=== PATIENT | male | born 1955 | race Caucasian/White ===

== ENCOUNTER 2018-03-05 20:45 | Emergency (ER) | payer SELFPAY ==
--- OUTSIDE RECORDS SUMMARY | 2018-03-05 20:48 | XMS REPORT | Clinical Summary ---
:1955 Author Organization [facility] Address [address] [place] [address] Care Team Providers Name Role Phone Pavel Herr MD Primary Care Provider Allergies Active Allergy Reactions Severity Noted Date Comments Dicyclomine Other (See Comments) 10/27/2017 PATIENT STATES THIS MED CAUSES A DROP IN HIS BLOOD PRESSURE Current Medications Prescription Sig. Disp. Refills Start End Date Status Date multivitamin with Take 1 Active minerals tablet tablet by mouth daily. folic acid (FOLVITE) 1 Take 1 mg by Active MG tablet mouth daily. thiamine 100 MG tablet Take 100 mg Active by mouth daily. zinc sulfate (ZINCATE) Take 220 mg Active 220 (50) mg capsule by mouth daily. ferrous sulfate 325 (65 Take 325 mg Active FE) MG tablet by mouth daily with breakfast. lactulose 20 gram/30 mL Take 10 g by Active solution mouth 3 (three) times a day. pantoprazole (PROTONIX) Take 40 mg Active 40 MG EC tablet by mouth every morning. vitamin B complex (B-100 Take 1 Active COMPLEX ORAL) capsule by mouth every morning. traMADol (ULTRAM) 50 mg Take 50 mg Active tablet by mouth every 8 (eight) hours as needed for moderate pain. citalopram (CeleXA) 20 Take 1 30 tablet 2 Active MG tabletIndications: tablet (20 8 Anxiety, Depression, mg total) by controlled mouth daily. furosemide (LASIX) 40 mg Take 1 60 tablet 0 03/06/20 Active tablet tablet (40 8 18 mg total) by mouth 2 (two) times a day for 30 days. spironolactone Take 1 60 tablet 0 03/06/20 Active (ALDACTONE) 25 MG tablet tablet (25 8 18 mg total) by mouth 2 (two) times a day for 30 days. mirtazapine (REMERON) 30 Take 1 30 tablet 0 Active MG tabletIndications: tablet (30 8 Psychophysiological mg total) by insomnia mouth nightly. promethazine (PHENERGAN) Take 1 30 tablet 0 Active 12.5 MG tablet (12.5 8 tabletIndications: mg total) by Nausea mouth every 8 (eight) hours as needed for nausea or vomiting. milk thistle 175 mg Take 175 mg Active tablet by mouth daily. amoxicillin-pot Take 1 28 tablet 0 03/18/20 Active clavulanate (AUGMENTIN) tablet by 8 18 875-125 mg per tablet mouth 2 (two) times a day for 14 days. pantoprazole (PROTONIX) Take 40 mg 10/30/19 Discontinued 40 MG EC tablet by mouth 18 daily. citalopram (CeleXA) 40 Take 40 mg 12/15/19 Discontinued MG tablet by mouth 18 daily. pantoprazole (PROTONIX) Take 1 60 tablet 0 11/29/19 40 MG EC tablet tablet (40 8 18 mg total) by mouth 2 (two) times a day with meals for 30 days. spironolactone Take 1 30 tablet 0 11/30/19 (ALDACTONE) 25 MG tablet tablet (25 8 18 mg total) by mouth daily for 30 days. furosemide (LASIX) 20 mg Take 1 60 tablet 0 11/29/19 tablet tablet (20 8 18 mg total) by mouth 2 (two) times a day for 30 days. ciprofloxacin (CIPRO) Take 1 14 tablet 0 11/06/19 500 MG tablet tablet (500 8 18 mg total) by mouth 2 (two) times a day for 7 days. furosemide (LASIX) 20 mg Take 20 mg 12/15/19 Discontinued tablet by mouth 2 18 (two) times a day. spironolactone Take 1 30 tablet 0 01/15/20 (ALDACTONE) 100 MG tablet (100 8 18 tablet mg total) by mouth daily for 30 days. citalopram (CeleXA) 40 Take 0.5 15 tablet 0 01/08/20 Discontinued MG tablet tablets (20 8 18 mg total) by mouth daily for 30 days. furosemide (LASIX) 40 mg Take 1 30 tablet 0 01/14/20 tablet tablet (40 8 18 mg total) by mouth daily for 30 days. ciprofloxacin (CIPRO) Take 1 28 tablet 0 12/29/19 500 MG tablet tablet (500 8 18 mg total) by mouth 2 (two) times a day for 14 days. traMADol (ULTRAM) 50 mg Take 1 30 tablet 0 12/25/19 tablet tablet (50 8 18 mg total) by mouth every 6 (six) hours as needed for moderate pain for up to 10 days. ondansetron (ZOFRAN) 4 Take 4 mg by 02/26/20 Discontinued MG tablet mouth every 18 8 (eight) hours as needed for nausea or vomiting. hydrOXYzine (VISTARIL) Take 1 po 30 capsule 2 02/26/20 Discontinued 50 MG qhs prn 8 18 capsuleIndications: insomnia Psychophysiological insomnia mirtazapine (REMERON) 15 Take 1 30 tablet 0 02/16/20 Discontinued MG tablet tablet (15 8 18 mg total) by mouth nightly. riFAXimin (XIFAXAN) 550 Take 1 28 tablet 0 02/19/20 mg tablet tablet (550 8 18 mg total) by mouth 2 (two) times a day for 14 days. Active Problems Problem Noted Date E. coli sepsis (HCC) 02/25/2018 Cirrhosis of liver with ascites (HCC) 02/24/2018 Psychophysiological insomnia 02/15/2018 Nausea 02/15/2018 Spontaneous bacterial peritonitis (HCC) 02/01/2018 Ascites due to alcoholic cirrhosis (HCC) 12/13/2017 Ascites 10/28/2017 Resolved Problems Problem Noted Date Resolved Date Intractable abdominal pain 10/27/2017 02/15/2018 Encounters Date Type Specialty Care Team Description 02/24/2018 - [facility], Cirrhosis of liver with ascites, unspecified hepatic cirrhosis type (HCC) (Primary Dx); 03/04/2018 Encounter Medicine Abdominal pain, unspecified abdominal location; Lit Maynard SIRS (systemic inflammatory response syndrome) (HCC) MD Benedict Hernandez Philip Tomy, MD Kohlnhofer, Matthew, MD 02/15/2018 Office Visit Internal Pavel Herr Psychophysiological insomnia ( Primary Dx); Medicine MD Porter BMI 25.0-25.9,adult; Nausea 02/01/2018 - [facility] Spontaneous bacterial peritonitis (HCC) (Primary Dx); 02/04/2018 Encounter Medicine MD Prakash Abdominal wall cellulitis; Akash Zuñiga, Other ascites 01/21/2018 Telephone Family Medicine Afia Dewey 01/07/2018 Office Visit Internal Carmenza Zhao Anxiety (Primary Dx); Medicine MD Porter BMI 22.0-22.9, adult; Psychophysiological insomnia; Depression, controlled; Other chronic pain 12/12/2017 - Emergency General Surgery Wingkun, Ascites due to alcoholic cirrhosis (Primary Dx); 12/14/2017 Ever Alcoholic cirrhosis of liver with ascites MD Nash Peacock, MD Mahi Mckeon Remy, DO 10/27/2017 - Hospital [facility] Intractable abdominal pain (Primary Dx); 10/29/2017 Encounter Medicine MD Cedric Other ascites; Nash, Ascites due to alcoholic cirrhosis MD Linda after 03/04/2017 Immunizations Name Dates Previously Given Next Due FLUCELVAX QUAD PF (0.5mL syringe) 02/04/2018 Family History Medical History Relation Name Comments Aneurysm Father Multiple sclerosis Mother Relation Name Status Comments Father Mother Social History Tobacco Use Types Packs/Day Years Used Date Current Every Day Smoker Cigarettes 0.5 25 Started: 02/24/2018 Smokeless Tobacco: Former User Chew Quit: 02/05/1954 Alcohol Use Drinks/Week oz/Week Comments No Quit drinking 11/04/2014 Sex Assigned at Date Recorded Not on file Last Filed Vital Signs Vital Sign Reading Time Taken Blood Pressure 101/56 03/04/2018 11:33 AM CDT Pulse 90 03/04/2018 11:33 AM CDT Temperature 37 C (98.6 F) 03/04/2018 11:33 AM CDT Respiratory Rate 20 03/04/2018 11:33 AM CDT Oxygen Saturation 95% 03/04/2018 11:33 AM CDT Inhaled Oxygen Concentration - - Weight 66 kg (145 lb 8 oz) 03/04/2018 3:12 AM CDT Height 167.6 cm (5' 6") 02/24/2018 5:36 PM CDT Body Mass Index 23.48 03/04/2018 3:12 AM CDT Plan of Treatment Date Type Specialty Care Team Description 03/15/2018 Office Visit Internal Medicine Pavel Herr MD [address] [place] [address] [place] [id number] [phone] Health Maintenance Due Date Last Done Comments COLON CANCER SCREENING 2007 SHINGRIX VACCINE (#1) 2007 ZOSTER VACCINE 2017 INFLUENZA VACCINE Completed 02/04/2018, 12/31/2017 Procedures Procedure Name Priority Date/Time Associated Comments Diagnosis ESTIMATED GFR Routine 03/04/2018 5:42 Results for this AM CDT procedure are in the results section. HC COMPLETE BLD COUNT Routine 03/04/2018 5:42 Results for this W/AUTO DIFF AM CDT procedure are in the results section. BASIC METABOLIC PANEL Routine 03/04/2018 5:42 Results for this AM CDT procedure are in the results section. ESTIMATED GFR Routine 03/03/2018 5:45 Results for this AM CDT procedure are in the results section. BASIC METABOLIC PANEL Routine 03/03/2018 5:45 Results for this AM CDT procedure are in the results section. MAGNESIUM LEVEL Routine 03/03/2018 5:45 Results for this AM CDT procedure are in the results section. POTASSIUM LEVEL Timed 03/02/2018 5:11 Results for this PM CDT procedure are in the results section. ESTIMATED GFR Routine 03/02/2018 5:13 Results for this AM CDT procedure are in the results section. HC COMPLETE BLD COUNT Routine 03/02/2018 5:13 Results for this W/AUTO DIFF AM CDT procedure are in the results section. COMPREHENSIVE METABOLIC Routine 03/02/2018 5:13 Results for this PANEL AM CDT procedure are in the results section. TRANSFUSE FRESH FROZEN Routine 03/01/2018 7:58 PLASMA PM CDT CELL COUNT AND Routine 03/01/2018 7:28 Results for this DIFFERENTIAL, BODY PM CDT procedure are in FLUID the results section. GRAM STAIN Routine 03/01/2018 7:28 Results for this PM CDT procedure are in the results section. ANAEROBIC CULTURE Routine 03/01/2018 7:28 PM CDT AEROBIC CULTURE Routine 03/01/2018 7:28 Results for this PM CDT procedure are in the results section. US ABDOMINAL Routine 03/01/2018 5:24 Results for this PARACENTESIS IMAGING PM CDT procedure are in the results section. PREPARE FRESH FROZEN Timed 03/01/2018 3:19 Results for this PLASMA AM CDT procedure are in the results section. HEPATIC FUNCTION PANEL Routine 03/01/2018 3:19 Results for this AM CDT procedure are in the results section. TYPE AND SCREEN Routine 03/01/2018 3:19 Results for this AM CDT procedure are in the results section. ESTIMATED GFR Routine 03/01/2018 3:00 Results for this AM CDT procedure are in the results section. PROTHROMBIN TIME WITH Routine 03/01/2018 3:00 Results for this INR AM CDT procedure are in the results section. HC COMPLETE BLD COUNT Routine 03/01/2018 3:00 Results for this W/AUTO DIFF AM CDT procedure are in the results section. BASIC METABOLIC PANEL Routine 03/01/2018 3:00 Results for this AM CDT procedure are in the results section. PROTHROMBIN TIME WITH Routine 02/28/2018 2:35 Results for this INR PM CDT procedure are in the results section. ESTIMATED GFR Routine 02/28/2018 4:43 Results for this AM CDT procedure are in the results section. BASIC METABOLIC PANEL Routine 02/28/2018 4:43 Results for this AM CDT procedure are in the results section. HC COMPLETE BLD COUNT Routine 02/28/2018 4:43 Results for this W/AUTO DIFF AM CDT procedure are in the results section. MAGNESIUM LEVEL Timed 02/27/2018 12:57 Results for this PM CDT procedure are in the results section. POTASSIUM LEVEL Timed 02/27/2018 12:57 Results for this PM CDT procedure are in the results section. ESTIMATED GFR Routine 02/27/2018 4:10 Results for this AM CDT procedure are in the results section. BASIC METABOLIC PANEL Routine 02/27/2018 4:10 Results for this AM CDT procedure are in the results section. HC COMPLETE BLD COUNT Routine 02/27/2018 4:10 Results for this W/AUTO DIFF AM CDT procedure are in the results section. ESTIMATED GFR Routine 02/26/2018 5:30 Results for this AM CDT procedure are in the results section. HC COMPLETE BLD COUNT Routine 02/26/2018 5:30 Results for this W/AUTO DIFF AM CDT procedure are in the results section. COMPREHENSIVE METABOLIC Routine 02/26/2018 5:30 Results for this PANEL AM CDT procedure are in the results section. US ABDOMINAL Routine 02/25/2018 3:45 Results for this PARACENTESIS IMAGING PM CDT procedure are in the results section. CYTOLOGY Routine 02/25/2018 3:00 Results for this (NON-GYNECOLOGICAL) PM CDT procedure are in REQUEST the results section. ALBUMIN, MISC FLUID Routine 02/25/2018 3:00 Results for this PM CDT procedure are in the results section. CELL COUNT AND Routine 02/25/2018 3:00 Results for this DIFFERENTIAL, BODY PM CDT procedure are in FLUID the results section. GRAM STAIN Routine 02/25/2018 3:00 Results for this PM CDT procedure are in the results section. ANAEROBIC CULTURE Routine 02/25/2018 3:00 Results for this PM CDT procedure are in the results section. AEROBIC CULTURE Routine 02/25/2018 3:00 Results for this PM CDT procedure are in the results section. ESTIMATED GFR Routine 02/25/2018 4:48 Results for this AM CDT procedure are in the results section. COMPREHENSIVE METABOLIC Routine 02/25/2018 4:48 Results for this PANEL AM CDT procedure are in the results section. HC COMPLETE BLD COUNT Routine 02/25/2018 4:48 Results for this W/AUTO DIFF AM CDT procedure are in the results section. LACTIC ACID LEVEL, Timed 02/25/2018 4:48 Results for this SEPSIS - NOW AND REPEAT AM CDT procedure are in 2X EVERY 3 HOURS the results section. LACTIC ACID LEVEL, Timed 02/25/2018 12:45 Results for this SEPSIS - NOW AND REPEAT AM CDT procedure are in 2X EVERY [address] ABDOMEN PELVIS W STAT 02/24/2018 8:02 Results for this CONTRAST PM CDT procedure are in the results section. URINALYSIS SCREEN AND STAT 02/24/2018 7:49 Results for this MICROSCOPY, WITH REFLEX PM CDT procedure are in TO CULTURE the results section. URINE CULTURE STAT 02/24/2018 7:49 Results for this PM CDT procedure are in the results section. LACTIC ACID LEVEL, Timed 02/24/2018 7:41 Results for this SEPSIS - NOW AND REPEAT PM CDT procedure are in 2X EVERY 3 HOURS the results section. BLOOD CULTURE, AEROBIC Routine 02/24/2018 7:35 Results for this & ANAEROBIC PM CDT procedure are in the results section. INFLUENZA ANTIGEN Routine 02/24/2018 7:35 Results for this PM CDT procedure are in the results section. BLOOD CULTURE, AEROBIC Routine 02/24/2018 7:20 Results for this & ANAEROBIC PM CDT procedure are in the results section. ECG ED PRELIMINARY Routine 02/24/2018 6:03 Results for this INTERPRETATION PM CDT procedure are in the results section. LIPASE LEVEL STAT 02/24/2018 6:01 Results for this PM CDT procedure are in the results section. ESTIMATED GFR STAT 02/24/2018 6:01 Results for this PM CDT procedure are in the results section. PARTIAL THROMBOPLASTIN STAT 02/24/2018 6:01 Results for this TIME (PTT) PM CDT procedure are in the results section. PROTHROMBIN TIME WITH STAT 02/24/2018 6:01 Results for this INR PM CDT procedure are in the results section. HC COMPLETE BLD COUNT STAT 02/24/2018 6:01 Results for this W/AUTO DIFF PM CDT procedure are in the results section. COMPREHENSIVE METABOLIC STAT 02/24/2018 6:01 Results for this PANEL PM CDT procedure are in the results section. ECG 12-LEAD Routine 02/24/2018 5:44 Results for this PM CDT procedure are in the results section. ESTIMATED GFR Routine 02/04/2018 4:48 Results for this AM CDT procedure are in the results section. AMMONIA LEVEL Routine 02/04/2018 4:48 Results for this AM CDT procedure are in the results section. HC COMPLETE BLD COUNT Routine 02/04/2018 4:48 Results for this W/AUTO DIFF AM CDT procedure are in the results section. COMPREHENSIVE METABOLIC Routine 02/04/2018 4:48 Results for this PANEL AM CDT procedure are in the results section. POC GLUCOSE Routine 02/03/2018 4:32 Results for this PM CDT procedure are in the results section. POC GLUCOSE Routine 02/03/2018 12:24 Results for this PM CDT procedure are in the results section. US ABDOMINAL Routine 02/03/2018 12:11 Results for this PARACENTESIS IMAGING PM CDT procedure are in the results section. POC GLUCOSE Routine 02/03/2018 5:32 Results for this AM CDT procedure are in the results section. ESTIMATED GFR Routine 02/03/2018 4:20 Results for this AM CDT procedure are in the results section. THYROID STIMULATING Routine 02/03/2018 4:20 Results for this HORMONE AM CDT procedure are in the results section. HEMOGLOBIN A1C Routine 02/03/2018 4:20 Results for this AM CDT procedure are in the results section. HC COMPLETE BLD COUNT Routine 02/03/2018 4:20 Results for this W/AUTO DIFF AM CDT procedure are in the results section. COMPREHENSIVE METABOLIC Routine 02/03/2018 4:20 Results for this PANEL AM CDT procedure are in the results section. POC GLUCOSE Routine 02/02/2018 5:58 Results for this PM CDT procedure are in the results section. AMMONIA LEVEL Routine 02/02/2018 9:19 Results for this AM CDT procedure are in the results section. LACTIC ACID LEVEL, Timed 02/02/2018 12:50 Results for this SEPSIS - NOW AND REPEAT AM CDT procedure are in 2X EVERY 3 HOURS the results section. LACTIC ACID LEVEL, Timed 02/01/2018 9:20 Results for this SEPSIS - NOW AND REPEAT PM CDT procedure are in 2X EVERY 3 HOURS the results section. US ABDOMINAL STAT 02/01/2018 7:16 Results for this PARACENTESIS IMAGING PM CDT procedure are in the results section. CELL COUNT AND Routine 02/01/2018 6:55 Results for this DIFFERENTIAL, BODY PM CDT procedure are in FLUID the results section. PROTEIN, MISC FLUID Routine 02/01/2018 6:55 Results for this PM CDT procedure are in the results section. LDH, MISC FLUID Routine 02/01/2018 6:55 Results for this PM CDT procedure are in the results section. GLUCOSE LEVEL, MISC Routine 02/01/2018 6:55 Results for this FLUID PM CDT procedure are in the results section. GRAM STAIN Routine 02/01/2018 6:55 Results for this PM CDT procedure are in the results section. ANAEROBIC CULTURE Routine 02/01/2018 6:55 Results for this PM CDT procedure are in the results section. AEROBIC CULTURE Routine 02/01/2018 6:55 Results for this PM CDT procedure are in the results section. BLOOD CULTURE, AEROBIC Routine 02/01/2018 6:08 Results for this & ANAEROBIC PM CDT procedure are in the results section. LACTIC ACID LEVEL, Timed 02/01/2018 5:49 Results for this SEPSIS - NOW AND REPEAT PM CDT procedure are in 2X EVERY 3 HOURS the results section. AMMONIA LEVEL STAT 02/01/2018 5:49 Results for this PM CDT procedure are in the results section. PROTHROMBIN TIME WITH STAT 02/01/2018 5:49 Results for this INR PM CDT procedure are in the results section. BLOOD CULTURE, AEROBIC Routine 02/01/2018 5:49 Results for this & ANAEROBIC PM CDT procedure are in the results section. CT ABDOMEN PELVIS WO STAT 02/01/2018 5:30 Results for this CONTRAST PM CDT procedure are in the results section. ECG ED PRELIMINARY Routine 02/01/2018 4:36 Results for this INTERPRETATION PM CDT procedure are in the results section. URINALYSIS SCREEN AND STAT 02/01/2018 4:34 Results for this MICROSCOPY, WITH REFLEX PM CDT procedure are in TO CULTURE the results section. URINE CULTURE STAT 02/01/2018 4:34 Results for this PM CDT procedure are in the results section. ESTIMATED GFR STAT 02/01/2018 4:17 Results for this PM CDT procedure are in the results section. CREATINE KINASE, TOTAL STAT 02/01/2018 4:17 Results for this (CPK) PM CDT procedure are in the results section. TROPONIN STAT 02/01/2018 4:17 Results for this PM CDT procedure are in the results section. LIPASE LEVEL STAT 02/01/2018 4:17 Results for this PM CDT procedure are in the results section. AMYLASE LEVEL STAT 02/01/2018 4:17 Results for this PM CDT procedure are in the results section. COMPREHENSIVE METABOLIC STAT 02/01/2018 4:17 Results for this PANEL PM CDT procedure are in the results section. HC COMPLETE BLD COUNT STAT 02/01/2018 4:17 Results for this W/AUTO DIFF PM CDT procedure are in the results section. ECG 12-LEAD Routine 02/01/2018 3:46 Results for this PM CDT procedure are in the results section. TRANSFUSE FRESH FROZEN Routine 01/05/2018 5:56 PLASMA PM CDT ZZESTIMATED GFR STAT 12/14/2017 8:55 Results for this AM CDT procedure are in the results section. BASIC METABOLIC PANEL STAT 12/14/2017 8:55 Results for this AM CDT procedure are in the results section. HC COMPLETE BLD COUNT STAT 12/14/2017 8:55 Results for this W/AUTO DIFF AM CDT procedure are in the results section. US ABDOMINAL Routine 12/13/2017 2:52 Results for this PARACENTESIS IMAGING PM CDT procedure are in the results section. CYTOLOGY Routine 12/13/2017 2:15 Results for this (NON-GYNECOLOGICAL) PM CDT procedure are in REQUEST the results section. BODY FLUID CONSULT Routine 12/13/2017 2:15 Results for this PM CDT procedure are in the results section. ALBUMIN, MISC FLUID Routine 12/13/2017 2:15 Results for this PM CDT procedure are in the results section. CELL COUNT AND Routine 12/13/2017 2:15 Results for this DIFFERENTIAL, BODY PM CDT procedure are in FLUID the results section. ANAEROBIC CULTURE Routine 12/13/2017 2:15 Results for this PM CDT procedure are in the results section. GRAM STAIN Routine 12/13/2017 2:15 Results for this PM CDT procedure are in the results section. AEROBIC CULTURE Routine 12/13/2017 2:15 Results for this PM CDT procedure are in the results section. ZZESTIMATED GFR STAT 12/12/2017 11:48 Results for this PM CDT procedure are in the results section. PARTIAL THROMBOPLASTIN STAT 12/12/2017 11:48 Results for this TIME (PTT) PM CDT procedure are in the results section. PROTHROMBIN TIME WITH STAT 12/12/2017 11:48 Results for this INR PM CDT procedure are in the results section. HEPATIC FUNCTION PANEL STAT 12/12/2017 11:48 Results for this PM CDT procedure are in the results section. LIPASE LEVEL STAT 12/12/2017 11:48 Results for this PM CDT procedure are in the results section. BASIC METABOLIC PANEL STAT 12/12/2017 11:48 Results for this PM CDT procedure are in the results section. HC COMPLETE BLD COUNT STAT 12/12/2017 11:48 Results for this W/AUTO DIFF PM CDT procedure are in the results section. URINALYSIS SCREEN AND STAT 12/12/2017 11:17 Results for this MICROSCOPY, WITH REFLEX PM CDT procedure are in TO CULTURE the results section. URINE CULTURE STAT 12/12/2017 11:17 Results for this PM CDT procedure are in the results section. ECG 12-LEAD STAT 12/12/2017 11:05 Results for this PM CDT procedure are in the results section. ECG ED PRELIMINARY Routine 12/12/2017 10:46 Results for this INTERPRETATION PM CDT procedure are in the results section. US ABDOMINAL Routine 10/28/2017 4:04 Results for this PARACENTESIS IMAGING PM CDT procedure are in the results section. GRAM STAIN Routine 10/28/2017 3:39 Results for this PM CDT procedure are in the results section. AEROBIC CULTURE Routine 10/28/2017 3:39 Results for this PM CDT procedure are in the results section. ANAEROBIC CULTURE Routine 10/28/2017 3:39 Results for this PM CDT procedure are in the results section. CYTOLOGY Routine 10/28/2017 3:30 Results for this (NON-GYNECOLOGICAL) PM CDT procedure are in REQUEST the results section. BODY FLUID CONSULT Routine 10/28/2017 3:30 Results for this PM CDT procedure are in the results section. CELL COUNT AND Routine 10/28/2017 3:30 Results for this DIFFERENTIAL, BODY PM CDT procedure are in FLUID the results section. PREPARE FRESH FROZEN Timed 10/28/2017 11:49 Results for this PLASMA AM CDT procedure are in the results section. TYPE AND SCREEN Timed 10/28/2017 11:49 Results for this AM CDT procedure are in the results section. CT ABDOMEN PELVIS W STAT 10/27/2017 12:50 Results for this CONTRAST PM CDT procedure are in the results section. ZZESTIMATED GFR Routine 10/27/2017 11:05 Results for this AM CDT procedure are in the results section. HEPATIC FUNCTION PANEL Routine 10/27/2017 11:05 Results for this AM CDT procedure are in the results section. MAGNESIUM LEVEL Routine 10/27/2017 11:05 Results for this AM CDT procedure are in the results section. LIPASE LEVEL Routine 10/27/2017 11:05 Results for this AM CDT procedure are in the results section. BASIC METABOLIC PANEL Routine 10/27/2017 11:05 Results for this AM CDT procedure are in the results section. URINALYSIS SCREEN AND STAT 10/27/2017 10:38 Results for this MICROSCOPY, WITH REFLEX AM CDT procedure are in TO CULTURE the results section. URINE CULTURE STAT 10/27/2017 10:38 Results for this AM CDT procedure are in the results section. PARTIAL THROMBOPLASTIN STAT 10/27/2017 10:30 Results for this TIME (PTT) AM CDT procedure are in the results section. PROTHROMBIN TIME WITH STAT 10/27/2017 10:30 Results for this INR AM CDT procedure are in the results section. HC COMPLETE BLD COUNT STAT 10/27/2017 10:30 Results for this W/AUTO DIFF AM CDT procedure are in the results section. after 03/04/2017 Results Estimated GFR (03/04/2018 5:42 AM)Only the most recent of12 resultswithin the time period is included. Estimated GFR >=90 mL/min/1.73 m2 [facility] DEPARTMENT OF Comment: PATHOLOGY AND GENOMIC CatergoryUnitsInterpretation MEDICINE G1 >=90 Normal or high G2 60-89Mildly decreased [id number] to moderately decreased [id number] to severely decreased G4 15-29Severely decreased G5 <15Kidney failure The eGFR was calculated using the Chronic Kidney Disease Epidemiology Collaboration (CKD-EPI) equation. Interpretation is based on recommendations of the National Kidney Foundation-Kidney Disease Outcomes Quality Initiative (NKF-KDOQI) published in 2014. Specimen Plasma specimen Performing Organization Address City/State/Zipcode Phone Number [facility] DEPARTMENT OF PATHOLOGY AND [address] [place] [address] [facility] CBC with platelet and differential (03/04/2018 5:42 AM)Only the most recent of14 resultswithin the time period is included. WBC 9.07 4.50 - 11.00 k/uL [facility] DEPARTMENT OF PATHOLOGY AND GENOMIC MEDICINE RBC 2.89 (L) 4.40 - 6.00 m/uL [facility] DEPARTMENT OF PATHOLOGY AND GENOMIC MEDICINE HGB 10.0 (L) 14.0 - 18.0 g/dL [facility] DEPARTMENT OF PATHOLOGY AND GENOMIC MEDICINE HCT 28.5 (L) 41.0 - 51.0 % [facility] DEPARTMENT OF PATHOLOGY AND GENOMIC MEDICINE MCV 98.6 82.0 - 100.0 fL [facility] DEPARTMENT OF PATHOLOGY AND GENOMIC MEDICINE MCH 34.6 (H) 27.0 - 34.0 pg [facility] DEPARTMENT OF PATHOLOGY AND GENOMIC MEDICINE MCHC 35.1 31.0 - 37.0 g/dL [facility] DEPARTMENT OF PATHOLOGY AND GENOMIC MEDICINE RDW - SD 52.8 37.0 - 55.0 fL [facility] DEPARTMENT OF PATHOLOGY AND GENOMIC MEDICINE MPV 10.4 8.8 - 13.2 fL [facility] DEPARTMENT OF PATHOLOGY AND GENOMIC MEDICINE Platelet count 59 (L) 150 - 400 k/uL [facility] DEPARTMENT OF PATHOLOGY AND GENOMIC MEDICINE Nucleated RBC 0.00 /100 WBC [facility] DEPARTMENT OF PATHOLOGY AND GENOMIC MEDICINE Neutrophils 74.9 (H) 39.0 - 69.0 % [facility] DEPARTMENT OF PATHOLOGY AND GENOMIC MEDICINE Lymphocytes 11.9 (L) 25.0 - 45.0 % [facility] DEPARTMENT OF PATHOLOGY AND GENOMIC MEDICINE Monocytes 9.8 0.0 - 10.0 % [facility] DEPARTMENT OF PATHOLOGY AND GENOMIC MEDICINE Eosinophils 1.9 0.0 - 5.0 % [facility] DEPARTMENT OF PATHOLOGY AND GENOMIC MEDICINE Basophils 0.8 0.0 - 1.0 % [facility] DEPARTMENT OF PATHOLOGY AND GENOMIC MEDICINE Specimen Blood Performing Organization Address [facility] Phone Number [facility] AND [address] [place] [address] [place] [address] [employer] [facility] Basic metabolic panel (03/04/2018 5:42 AM)Only the most recent of8 resultswithin the time period is included. Sodium 135 135 - 148 mEq/L [facility] DEPARTMENT OF PATHOLOGY AND GENOMIC MEDICINE Potassium 3.3 (L) 3.5 - 5.0 mEq/L [facility] DEPARTMENT OF PATHOLOGY AND GENOMIC MEDICINE Chloride 97 (L) 98 - 112 mEq/L [facility] DEPARTMENT OF PATHOLOGY AND GENOMIC MEDICINE CO2 27 24 - 31 mEq/L [facility] DEPARTMENT OF PATHOLOGY AND GENOMIC MEDICINE Anion gap 11@ANIO 7 - 15 mEq/L [facility] DEPARTMENT OF PATHOLOGY AND GENOMIC MEDICINE BUN 8 8 - 23 mg/dL [facility] DEPARTMENT OF PATHOLOGY AND GENOMIC MEDICINE Creatinine 0.90 0.70 - 1.20 mg/dL [facility] DEPARTMENT OF PATHOLOGY AND GENOMIC MEDICINE Glucose 106 (H) 65 - 99 mg/dL [facility] DEPARTMENT OF PATHOLOGY AND GENOMIC MEDICINE Calcium 8.2 (L) 8.8 - 10.2 mg/dL [facility] DEPARTMENT OF PATHOLOGY AND GENOMIC MEDICINE Specimen Plasma specimen Performing Organization Address City/[facility] Phone Number [facility] OF PATHOLOGY AND [address] [place] [address] Magnesium level (03/03/2018 5:45 AM)Only the most recent of3 resultswithin the time period is included. Magnesium 1.7 1.6 - 2.4 mg/dL [facility] DEPARTMENT OF PATHOLOGY AND GENOMIC MEDICINE Specimen Plasma specimen Performing Organization Address [facility] Phone Number [facility] DEPARTMENT OF PATHOLOGY AND [address] [place] [address] Potassium level (03/02/2018 5:11 PM)Only the most recent of2 resultswithin the time period is included. Potassium 3.3 (L) 3.5 - 5.0 mEq/L [facility] DEPARTMENT OF PATHOLOGY AND GENOMIC [facility] Specimen Plasma specimen Performing Organization Address [facility] Phone Number [facility] DEPARTMENT OF PATHOLOGY AND [id number] [place] [address] Comprehensive metabolic panel (03/02/2018 5:13 AM)Only the most recent of7 resultswithin the time period is included. Sodium 136 135 - 148 mEq/L [facility] DEPARTMENT OF PATHOLOGY AND GENOMIC [facility] Potassium 2.7 (LL) 3.5 - 5.0 mEq/L [facility] DEPARTMENT OF Comment: PATHOLOGY AND GENOMIC Results called to and read back by MEGA BATISTA(4TH FLOOR)03/02/2018 MEDICINE 06:02 [facility] Chloride 98 98 - 112 mEq/L [facility] DEPARTMENT OF PATHOLOGY AND GENOMIC MEDICINE CO2 28 24 - 31 mEq/L [facility] DEPARTMENT OF PATHOLOGY AND GENOMIC MEDICINE Anion gap 10@ANIO 7 - 15 mEq/L [facility] DEPARTMENT OF PATHOLOGY AND GENOMIC MEDICINE BUN 5 (L) 8 - 23 mg/dL [facility] DEPARTMENT OF PATHOLOGY AND GENOMIC MEDICINE Creatinine 0.80 0.70 - 1.20 mg/dL [facility] DEPARTMENT OF PATHOLOGY AND GENOMIC MEDICINE Glucose 90 65 - 99 mg/dL [facility] DEPARTMENT OF PATHOLOGY AND GENOMIC MEDICINE Calcium 8.0 (L) 8.8 - 10.2 mg/dL [facility] DEPARTMENT OF PATHOLOGY AND GENOMIC MEDICINE Protein 5.8 (L) 6.3 - 8.3 g/dL [facility] DEPARTMENT OF Comment: PATHOLOGY AND GENOMIC [place] 4.6-7.0 g/dL MEDICINE 1 week 4.4-7.6 g/dL 7 months-1year5.1-7.3 g/dL 1-2 years5.6-7.5 g/dL >3 years6.0-8.0 g/dL 18-150 6.3-8.3 g/dL Albumin 2.4 (L) 3.5 - 5.0 g/dL [facility] DEPARTMENT OF PATHOLOGY AND GENOMIC MEDICINE A/G ratio 0.7 0.7 - 3.8 [facility] DEPARTMENT OF PATHOLOGY AND GENOMIC MEDICINE Alkaline phosphatase 131 (H) 40 - 129 U/L [facility] DEPARTMENT OF PATHOLOGY AND GENOMIC MEDICINE AST 58 (H) 10 - 50 U/L [facility] DEPARTMENT OF PATHOLOGY AND GENOMIC MEDICINE ALT 33 5 - 50 U/L [facility] DEPARTMENT OF PATHOLOGY AND GENOMIC MEDICINE Total bilirubin 1.9 (H) 0.0 - 1.2 mg/dL [facility] DEPARTMENT OF PATHOLOGY AND GENOMIC MEDICINE Specimen Plasma specimen Performing Organization Address City/[facility] Phone Number [facility] DEPARTMENT OF PATHOLOGY AND [address] [place] [address] [facility] [employer] fresh frozen plasma (03/01/2018 10:13 PM)Only the most recent of3 resultswithin the time period is included.Aerobic culture (03/01/2018 7:28 PM) Only the most recent of5 resultswithin the time period is included. Aerobic culture isolate Enterococcus faecium [facility] DEPARTMENT OF Recovered in Broth only: PATHOLOGY AND GENOMIC ,susceptibility to follow MEDICINE , beta lactamase negative Enterococcus susceptible to high levels of Gentamicin. Susceptibility results indicate synergy with Penicillins and Vancomycin. This organism is Vancomycin Resistant. (A) Comment: Specimen Information Specimen Source: Paracentesis fluid Specimen Site: Paracentesis fluid Specimen Paracentesis fluid - Paracentesis fluid Organism Antibiotic Method Susceptibility Enterococcus faecium Ampicillin BRICE >8 mcg/mL: Resistant Enterococcus faecium Daptomycin BRICE 2 mcg/mL: Susceptible Enterococcus faecium Erythromycin BRICE >4 mcg/mL: Resistant Enterococcus faecium Gentamicin-Syn BRICE <=500 mcg/mL: Susceptible Enterococcus faecium Linezolid BRICE 2 mcg/mL: Susceptible Enterococcus faecium Minocycline BRICE >8 mcg/mL: Resistant Enterococcus faecium Vancomycin BRICE >16 mcg/mL: Resistant Performing Organization Address City/[facility] Phone Number [facility] DEPARTMENT OF PATHOLOGY AND [address] [place] [address] [facility] Gram stain (03/01/2018 7:28 PM)Only the most recent of5 resultswithin the time period is included. Gram stain isolate Rare WBC's [facility] DEPARTMENT OF PATHOLOGY No organisms seen AND [employer] MEDICINE Comment: Specimen Information Specimen Source: Paracentesis fluid Specimen Site: Paracentesis fluid Specimen Paracentesis fluid - Paracentesis fluid Performing Organization Address City/State/Zipcode Phone Number [facility] DEPARTMENT OF PATHOLOGY AND [address] [place] [address] [employer] [facility] Cell count and differential, body fluid (03/01/2018 7:28 PM)Only the most recent of5 resultswithin the time period is included. [facility] fluid type Paracentesis [facility] DEPARTMENT OF PATHOLOGY AND GENOMIC MEDICINE Color, fluid Yellow [facility] DEPARTMENT OF PATHOLOGY AND GENOMIC MEDICINE Appearance, fluid Slightly hazy [facility] DEPARTMENT OF PATHOLOGY AND GENOMIC MEDICINE RBC, fluid 77 /CMM [facility] DEPARTMENT OF PATHOLOGY AND GENOMIC MEDICINE Nucleated cells, fluid 31 /CMM [facility] DEPARTMENT OF PATHOLOGY AND GENOMIC MEDICINE Fluid mononuclear cell See Diff [facility] DEPARTMENT OF PATHOLOGY AND GENOMIC MEDICINE Neutrophils, fluid 20 % [facility] DEPARTMENT OF PATHOLOGY AND GENOMIC MEDICINE Lymphocytes, fluid 63 % [facility] DEPARTMENT OF PATHOLOGY AND GENOMIC MEDICINE Mesothelial cells, fluid 4 % [facility] DEPARTMENT OF PATHOLOGY AND GENOMIC MEDICINE Macrophages, fluid 13 % [facility] DEPARTMENT OF PATHOLOGY AND GENOMIC MEDICINE Specimen Fluid Performing Organization Address City/[facility] Phone Number [facility] DEPARTMENT OF PATHOLOGY AND [address] [place] [address] [facility] US Abdominal Paracentesis Imaging (03/01/2018 5:24 PM)Only the most recent of6 resultswithin the time period is included. Narrative Performed At EXAMINATION:US ABDOMINAL PARACENTESIS IMAGING [facility] CLINICAL HISTORY: ASCITES COMPARISON:None. TECHNIQUE: The procedure's risks, benefits, and alternatives were discussed with the patient and written, informed consent was obtained. Using ultrasound guidance, a site for needle entry was selected and the overlying skin was prepped and draped in the usual sterile fashion. 1% buffered lidocaine was used for local anesthesia. A 5 Luxembourger Yueh catheter was inserted into the peritoneal cavity and 2000 cc of straw-colored peritoneal fluid was removed. Patient left the department in good condition EBL: None. COMPLICATIONS: None. SPECIMENS: As above. ASSISTANTS: None. IMPRESSION: Uncomplicated ultrasound-guided diagnostic and therapeutic paracentesis. [id number] Procedure Note Interface, Radiology Results Incoming - 03/01/2018 7:31 PM CDT EXAMINATION: US ABDOMINAL PARACENTESIS IMAGING CLINICAL HISTORY: ASCITES COMPARISON:None. TECHNIQUE: The procedure's risks, benefits, and alternatives were discussed with the patient and written, informed consent was obtained. Using ultrasound guidance, a site for needle entry was selected and the overlying skin was prepped and draped in the usual sterile fashion. 1% buffered lidocaine was used for local anesthesia. A 5 Luxembourger Yueh catheter was inserted into the peritoneal cavity and 2000 cc of straw-colored peritoneal fluid was removed. Patient left the department in good condition EBL: None. COMPLICATIONS: None. SPECIMENS: As above. ASSISTANTS: None. IMPRESSION: Uncomplicated ultrasound-guided diagnostic and therapeutic paracentesis. [id number] Performing Organization Address [facility] Phone Number [facility] [address] [place] [address] Prepare fresh frozen plasma, 2 Units (03/01/2018 3:19 AM)Only the most recent of2 resultswithin the time period is included. Product name Thawed Plasma [facility] DEPARTMENT OF PATHOLOGY AND GENOMIC MEDICINE Unit number [id number] [facility] DEPARTMENT OF PATHOLOGY AND GENOMIC MEDICINE Product code [id number] [facility] DEPARTMENT OF PATHOLOGY AND GENOMIC MEDICINE Dispense status Transfused [facility] DEPARTMENT OF PATHOLOGY AND GENOMIC MEDICINE Blood expiration date [facility] DEPARTMENT OF PATHOLOGY AND GENOMIC MEDICINE Blood type code 6200 [facility] DEPARTMENT OF PATHOLOGY AND GENOMIC MEDICINE Blood type A POSITIVE [facility] DEPARTMENT OF PATHOLOGY AND GENOMIC MEDICINE Product name Thawed Plasma [facility] DEPARTMENT OF PATHOLOGY AND GENOMIC MEDICINE Unit number [id number] [facility] DEPARTMENT OF PATHOLOGY AND GENOMIC MEDICINE Product code [id number] [facility] DEPARTMENT OF PATHOLOGY AND GENOMIC MEDICINE Dispense status Transfused [facility] DEPARTMENT OF PATHOLOGY AND GENOMIC MEDICINE Blood expiration date [facility] DEPARTMENT OF PATHOLOGY AND GENOMIC MEDICINE Blood type code 0600 [facility] DEPARTMENT OF PATHOLOGY AND GENOMIC MEDICINE Blood type A NEGATIVE [facility] DEPARTMENT OF PATHOLOGY AND GENOMIC MEDICINE Specimen Blood Performing Organization Address City/[facility] Phone Number [facility] DEPARTMENT OF PATHOLOGY AND [address] [place] [address] [place] [address] GENOMIC MEDICINE Type and screen (03/01/2018 3:19 AM)Only the most recent of2 resultswithin the time period is included. ABO grouping A [facility] DEPARTMENT OF PATHOLOGY AND GENOMIC MEDICINE Rh type NEG [facility] DEPARTMENT OF PATHOLOGY AND GENOMIC MEDICINE Antibody screen NEG [facility] DEPARTMENT OF PATHOLOGY AND GENOMIC [facility] Specimen Blood Performing Organization Address [facility] Phone Number [facility] DEPARTMENT OF PATHOLOGY AND [id number] [place] [address] Hepatic function panel (03/01/2018 3:19 AM)Only the most recent of3 resultswithin the time period is included. Albumin 2.2 (L) 3.5 - 5.0 g/dL [facility] DEPARTMENT OF PATHOLOGY AND GENOMIC MEDICINE Total bilirubin 1.9 (H) 0.0 - 1.2 mg/dL [facility] DEPARTMENT OF PATHOLOGY AND GENOMIC MEDICINE Bilirubin direct 0.7 (H) 0.0 - 0.3 mg/dL [facility] DEPARTMENT OF PATHOLOGY AND GENOMIC MEDICINE Alkaline phosphatase 137 (H) 40 - 129 U/L [facility] DEPARTMENT OF PATHOLOGY AND GENOMIC MEDICINE Protein 5.6 (L) 6.3 - 8.3 g/dL [facility] DEPARTMENT OF Comment: PATHOLOGY AND GENOMIC 4.6-7.0 g/dL MEDICINE 1 week 4.4-7.6 g/dL 7 months-1year5.1-7.3 g/dL 1-2 years5.6-7.5 g/dL >3 years6.0-8.0 g/dL 18-150 6.3-8.3 g/dL ALT 34 5 - 50 U/L [facility] DEPARTMENT OF PATHOLOGY AND GENOMIC MEDICINE AST 60 (H) 10 - 50 U/L [facility] DEPARTMENT OF PATHOLOGY AND GENOMIC MEDICINE Specimen Plasma specimen Performing Organization Address [facility]/Zipcode Phone Number [facility] DEPARTMENT OF PATHOLOGY AND [id number] [place] [address] [place], [place] [id number] [place] [address] Prothrombin time with INR (03/01/2018 3:00 AM)Only the most recent of6 resultswithin the time period is included. Prothrombin time 26.3 (H) 12.0 - 15.0 sec [facility] DEPARTMENT OF PATHOLOGY AND GENOMIC MEDICINE INR 2.4 [facility] DEPARTMENT OF Comment: PATHOLOGY AND GENOMIC The International Normalized Ratio (INR) is a therapeutic MEDICINE monitoring tool for patients who are stable on oral anticoagulant therapy. An INR of 2.0-3.0 is suggested for deep vein thrombosis/pulmonary embolism. Specimen Blood Performing Organization Address [facility] Phone Number [facility] DEPARTMENT OF PATHOLOGY AND [address] [place] [address] [place] [address] GENOMIC MEDICINE Anaerobic culture (02/25/2018 3:00 PM)Only the most recent of4 resultswithin the time period is included. Anaerobic culture No anaerobic organisms isolated. [facility] DEPARTMENT OF isolate Comment: PATHOLOGY AND GENOMIC Specimen Information MEDICINE Specimen Source: Paracentesis fluid Specimen Site: Paracentesis fluid Specimen Paracentesis fluid - Paracentesis fluid Performing Organization Address [facility] Phone Number [facility] DEPARTMENT OF PATHOLOGY AND [address] [place] [address] GENOMIC MEDICINE Albumin, misc fluid (02/25/2018 3:00 PM)Only the most recent of2 resultswithin the time period is included. Fluid type Paracentesis [facility] DEPARTMENT OF PATHOLOGY AND GENOMIC MEDICINE Albumin, fluid <0.2 g/dL [facility] DEPARTMENT OF PATHOLOGY Comment: AND GENOMIC MEDICINE Analysis performed on Azalea 8000 analyzer. This is not an approved methodology for this specimen type;accuracy and clinical significance uncertain. Specimen Fluid Performing Organization Address [facility] Phone Number [facility] DEPARTMENT OF PATHOLOGY AND [address] [place] [address] GENOMIC MEDICINE Cytology (non-gynecological) request (02/25/2018 3:00 PM)Only the most recent of3 resultswithin the time period is included. [facility] DEPARTMENT OF PATHOLOGY AND GENOMIC MEDICINE Cytology See link below for PDF [facility] DEPARTMENT OF (non-gynecological) report Lab Report PATHOLOGY AND GENOMIC MEDICINE Result status This is Final Report [facility] DEPARTMENT OF for [id number] PATHOLOGY AND GENOMIC MEDICINE Performing Organization Address [facility] Phone Number [facility] DEPARTMENT OF PATHOLOGY AND [address] [place] [address] [place] [address] GENOMIC MEDICINE Lactic acid level, SEPSIS - Now and repeat 2x every 3 hours (02/25/2018 4:48 AM )Only the most recent of6 resultswithin the time period is included. Lactic acid 1.9 0.5 - 2.2 mmol/L [facility] DEPARTMENT OF PATHOLOGY AND GENOMIC MEDICINE Specimen Plasma specimen Performing Organization Address City/State/Zipcode Phone Number [facility] DEPARTMENT OF PATHOLOGY AND [address] [place] [address] Abdomen Pelvis W Contrast (02/24/2018 8:02 PM)Only the most recent of2 resultswithin the time period is included. Narrative Performed At EXAMINATION:CT ABDOMEN PELVIS W CONTRAST RADIANT CLINICAL HISTORY:Abd painfeverabscess suspected, Abd infection (incl peritonitis), hx liver cirrhosisabd pain and swelling TECHNIQUE:Multiple axial images of the abdomen and pelvis were obtained following intravenous administration of iodinated contrast. Sagittal and coronal computerized reformatted CT scans are performed using radiation dose reduction techniques. Technical factors are evaluated and adjusted to ensure appropriate moderation of exposure. Automated dose management technology is applied to adjust radiation exposure while achieving a diagnostic quality image COMPARISON:February 01, 2018 Abdomen: There is a large right posterior basilar pleural effusion with overlying atelectasis.There is a smaller left posterior pleural effusion.No pulmonary parenchymal infiltrate identified. The liver is surrounded by ascites and has a cirrhotic contour with no focal defect.The gallbladder is not well seen but there was no obvious stone. Spleen is mildly enlarged. Pancreas was well visualized with no mass or inflammatory changes.Pancreatic duct is not dilated. Kidneys demonstrate symmetric perfusion with no mass or obstruction. Abdominal aorta was of normal caliber with no stone or periaortic adenopathy. The portal vein and splenic vein are patent.There are large number of left upper quadrant varices including significant upper gastric varices which extend above the hiatus.There is a large amount of ascites scattered throughout the abdomen Proximal jejunal loops demonstrate mild dilatation and wall thickening but no evidence of perforation or obstruction. Pelvis: Scans through the pelvis demonstrate gas in the colon which does not appear to be thickened.There is a large amount of dependent ascites in the pelvis.No free air is identified. IMPRESSION: Cirrhosis, significant ascites, varices No abscess identified but peritonitis not excluded. [facility]-[id number] Procedure Note Hm Interface, Radiology Results Incoming - 02/24/2018 8:17 PM CDT EXAMINATION: CT ABDOMEN PELVIS W CONTRAST CLINICAL HISTORY: Abd pain fever abscess suspected, Abd infection (incl peritonitis), hx liver cirrhosis abd pain and swelling TECHNIQUE:Multiple axial images of the abdomen and pelvis were obtained following intravenous administration of iodinated contrast. Sagittal and coronal computerized reformatted CT scans are performed using radiation dose reduction techniques. Technical factors are evaluated and adjusted to ensure appropriate moderation of exposure. Automated dose management technology is applied to adjust radiation exposure while achieving a diagnostic quality image COMPARISON: February 01, 2018 Abdomen: There is a large right posterior basilar pleural effusion with overlying atelectasis. There is a smaller left posterior pleural effusion. No pulmonary parenchymal infiltrate identified. The liver is surrounded by ascites and has a cirrhotic contour with no focal defect. The gallbladder is not well seen but there was no obvious stone. Spleen is mildly enlarged. Pancreas was well visualized with no mass or inflammatory changes. Pancreatic duct is not dilated. Kidneys demonstrate symmetric perfusion with no mass or obstruction. Abdominal aorta was of normal caliber with no stone or periaortic adenopathy. The portal vein and splenic vein are patent. There are large number of left upper quadrant varices including significant upper gastric varices which extend above the hiatus. There is a large amount of ascites scattered throughout the abdomen Proximal jejunal loops demonstrate mild dilatation and wall thickening but no evidence of perforation or obstruction. Pelvis: Scans through the pelvis demonstrate gas in the colon which does not appear to be thickened. There is a large amount of dependent ascites in the pelvis. No free air is identified. IMPRESSION: Cirrhosis, significant ascites, varices No abscess identified but peritonitis not excluded. [facility]-[id number] Performing Organization Address City/State/Zipcode Phone Number [facility] [address] [place] [address] Urinalysis screen and microscopy, with reflex to culture (02/24/2018 7:49 PM) Only the most recent of4 resultswithin the time period is included. Specimen site Clean catch [facility] DEPARTMENT OF PATHOLOGY AND GENOMIC MEDICINE Color, UA Rosa Elena [facility] DEPARTMENT OF PATHOLOGY AND GENOMIC MEDICINE Appearance, UA Clear [facility] DEPARTMENT OF PATHOLOGY AND GENOMIC MEDICINE Specific gravity, UA 1.018 1.001 - 1.035 [facility] DEPARTMENT OF PATHOLOGY AND GENOMIC MEDICINE pH, UA 6.0 5.0 - 8.5 [facility] DEPARTMENT OF PATHOLOGY AND GENOMIC MEDICINE Protein, UA Negative Negative [facility] [facility] AND GENOMIC MEDICINE Glucose, UA 3+ (A) Negative [facility] DEPARTMENT OF PATHOLOGY AND GENOMIC MEDICINE Ketones, UA Negative Negative [facility] DEPARTMENT OF PATHOLOGY AND GENOMIC MEDICINE Bilirubin, UA Negative Negative [facility] DEPARTMENT OF PATHOLOGY AND GENOMIC MEDICINE Blood, UA Negative Negative [facility] DEPARTMENT OF PATHOLOGY AND GENOMIC MEDICINE Nitrite, UA Negative Negative [facility] DEPARTMENT OF PATHOLOGY AND GENOMIC MEDICINE Urobilinogen, UA Negative <2.0 [facility] DEPARTMENT OF PATHOLOGY AND GENOMIC MEDICINE Leukocyte esterase, UA Negative Negative [facility] DEPARTMENT OF PATHOLOGY AND GENOMIC MEDICINE WBC, UA 0-5 0 - 1 /HPF [facility] DEPARTMENT OF PATHOLOGY AND GENOMIC MEDICINE RBC, UA 0-5 0 - 5 /HPF [facility] DEPARTMENT OF PATHOLOGY AND GENOMIC MEDICINE Bacteria, UA None seen None seen [facility] DEPARTMENT OF PATHOLOGY AND GENOMIC MEDICINE Yeast, UA None seen [facility] DEPARTMENT OF PATHOLOGY AND GENOMIC MEDICINE Yeast with pseudohyphae, UA None seen [facility] DEPARTMENT OF PATHOLOGY AND [facility] MEDICINE Specimen Urine Performing Organization Address City/[facility] Phone Number [facility] DEPARTMENT OF PATHOLOGY AND [id number] [place] [address] [place], [place] [id number] [place] [address] Urine culture (02/24/2018 7:49 PM)Only the most recent of4 resultswithin the time period is included. Urine culture SEE COMMENTComment: Bacteriuria [facility] DEPARTMENT OF PATHOLOGY screen negative. AND [facility] Specimen Urine Performing Organization Address City/[facility] Phone Number [facility] AND [id number] [place] [address] [place] [address] [facility] Blood culture, aerobic & anaerobic (02/24/2018 7:35 PM)Only the most recent of4 resultswithin the time period is included. Blood culture isolate Escherichia coli [facility] DEPARTMENT OF Aerobic only: PATHOLOGY AND [facility] for susceptibilitysee Order #[id number] MEDICINE The performance characteristics of this assay on this isolate were validated by the Microbiology Laboratory at [facility].This source has not been approved by the U.S. Food and Drug Administration.The results are not intended to be used as the sole means for clinical diagnosis or patient management.The Microbiology Laboratory is authorized under the clinical Laboratory Improvement Amendments of 1988 (CLIA-88) to perform high complexity testing. for susceptibilitysee Order #[id number] (A) Comment: Specimen Information Specimen Source: Blood Specimen Site: Antecubital Specimen Blood - Antecubital Performing Organization Address City/State/Zipcode Phone Number [facility] DEPARTMENT OF PATHOLOGY AND [address] [place] [id number] GENOMIC MEDICINE Influenza antigen (02/24/2018 7:35 PM) Influenza antigen Negative for Influenza A/B antigen. [facility] DEPARTMENT OF Comment: PATHOLOGY AND GENOMIC Specimen Information MEDICINE Specimen Source: Nares Specimen Site: Left Specimen Nares - Left Performing Organization Address [facility] Phone Number [facility] DEPARTMENT OF PATHOLOGY AND [id number] [place] [address] [place] [address] GENOMIC MEDICINE ECG ED Preliminary Interpretation - NOT AN ORDER (02/24/2018 6:03 PM)Only the most recent of3 resultswithin the time period is included. Narrative Performed At Trell Mcmullen MD 02/24/20188:57 PM ECG ED Preliminary Interpretation - Not an Order Performed by: TRELL MCMULLEN Authorized by: TRELL MCMULLEN ECG reviewed by ED Physician in the absence of a records management coordinator: yes Interpretation: Interpretation: normal Rate: ECG rate:94 ECG rate assessment: normal Rhythm: Rhythm: sinus rhythm Ectopy: Ectopy: none QRS: QRS axis:Normal QRS intervals:Normal Conduction: Conduction: normal ST segments: ST segments:Normal T waves: T waves: normal Partial thromboplastin time, activated (02/24/2018 6:01 PM)Only the most recent of3 resultswithin the time period is included. PTT 43.4 (H) 23.0 - 36.0 sec [facility] DEPARTMENT OF Comment: PATHOLOGY AND GENOMIC PTT therapeutic range for unfractionated heparin is MEDICINE 61.0-112.0 seconds which corresponds to Anti-Xa 0.3-0.7 U/ml. Specimen Blood Performing Organization Address [facility] Phone Number [facility] DEPARTMENT OF PATHOLOGY AND [address] [place] [address] [place] [address] [facility] MEDICINE Lipase level (02/24/2018 6:01 PM)Only the most recent of4 resultswithin the time period is included. Lipase 57 13 - 60 U/L [facility] DEPARTMENT OF PATHOLOGY AND GENOMIC MEDICINE Specimen Plasma specimen Performing Organization Address [facility] Phone Number [facility] DEPARTMENT OF PATHOLOGY AND [address] [place] [address] [place] [address] [facility] MEDICINE ECG 12 lead (02/24/2018 5:44 PM)Only the most recent of3 resultswithin the time period is included. Ventricular rate 95 [facility] Atrial rate 95 [facility] MI interval 130 [facility] QRSD interval 82 [facility] QT interval 348 [facility] QTC interval 437 [facility] P axis 1 32 [facility] QRS axis 1 -20 [facility] T wave axis 13 [facility] EKG impression Sinus rhythm-Voltage criteria for left ventricular hypertrophy- Abnormal ECG-In automated comparison with ECG of 01-FEB-2018 15:46,-Junctional rhythm has replaced Sinus rhythm-QT has shortened-Electronically Signed By Jennifer Neves MD ([id number]) on [facility] MUSE 02/25/2018 2:35:14 PM Performing Organization Address [facility] Phone Number [facility] MUSE [address] [place] [address] Ammonia level (02/04/2018 4:48 AM)Only the most recent of3 resultswithin the time period is included. Ammonia 44 16 - 60 umol/L [facility] DEPARTMENT OF PATHOLOGY AND GENOMIC MEDICINE Specimen Blood Performing Organization Address [facility] Phone Number [facility] DEPARTMENT OF PATHOLOGY AND [address] [place] [address] POC glucose (02/03/2018 4:32 PM)Only the most recent of4 resultswithin the time period is included. POC glucose 104 (H) 65 - 99 mg/dL [facility] DEPARTMENT OF PATHOLOGY AND Comment: [employer] Meter ID: [id number] Acid Conditioner: Kamari Hoskins Performing Organization Address [facility] Phone Number [facility] DEPARTMENT OF PATHOLOGY AND [address] [place] [address] Thyroid stimulating hormone (02/03/2018 4:20 AM) TSH 1.04 0.27 - 4.20 uIU/mL [facility] DEPARTMENT OF PATHOLOGY AND GENOMIC [facility] Specimen Plasma specimen Performing Organization Address [facility] Phone Number [facility] DEPARTMENT OF PATHOLOGY AND [address] [place] [address] Hemoglobin A1c (02/03/2018 4:20 AM) Hemoglobin A1C 4.1 4.0 - 6.0 % [facility] DEPARTMENT OF PATHOLOGY Comment: AND GENOMIC MEDICINE Less than 6% - Goal of therapy for Type II Diabetes Less than 7%-Goal of therapy for Type I Diabetes Less than 8%-Acceptable control for Type I or Type II Diabetes Greater than 8%-Unacceptable control; action indicated. ([id number]) Corrective report Clerical Error. Spoke with Micaela Braswell on 4th floor regarding Corrective Report. Corrected result; previously reported as 12.9 on 02/03/2018 at 07:24 by [facility] Specimen Blood Performing Organization Address [facility] Phone Number [facility] DEPARTMENT OF PATHOLOGY AND [id number] [place] [address] [place] [address] GENOMIC MEDICINE Protein, misc fluid (02/01/2018 6:55 PM) Fluid type Ascitic [facility] DEPARTMENT OF PATHOLOGY AND GENOMIC MEDICINE Protein, fluid 0.4 g/dL [facility] DEPARTMENT OF PATHOLOGY Comment: AND GENOMIC MEDICINE Analysis performed on Azalea 8000 analyzer. This is not an approved methodology for this specimen type;accuracy and clinical significance uncertain. Specimen Fluid Performing Organization Address [facility] Phone Number [facility] DEPARTMENT OF PATHOLOGY AND [address] [place] [address] GENOMIC MEDICINE LDH, misc fluid (02/01/2018 6:55 PM) Fluid type Ascitic [facility] DEPARTMENT OF PATHOLOGY AND GENOMIC MEDICINE LDH, fluid 31 U/L [facility] DEPARTMENT OF PATHOLOGY AND Comment: GENOMIC MEDICINE Analysis performed on Azalea 8000 analyzer. This is not an approved methodology for this specimen type;accuracy and clinical significance uncertain. Specimen Fluid Performing Organization Address City/[facility] Phone Number [facility] DEPARTMENT OF PATHOLOGY AND [address] [place] [address] GENOMIC MEDICINE Glucose level, misc fluid (02/01/2018 6:55 PM) Fluid type Ascitic [facility] DEPARTMENT OF PATHOLOGY AND GENOMIC MEDICINE Glucose, fluid 139 mg/dL [facility] DEPARTMENT OF PATHOLOGY Comment: AND GENOMIC MEDICINE Analysis performed on Azalea 8000 analyzer. This is not an approved methodology for this specimen type;accuracy and clinical significance uncertain. Specimen Fluid Performing Organization Address [facility]/Zipcode Phone Number [facility] DEPARTMENT OF PATHOLOGY AND [address] [place] [address] Abdomen Pelvis Wo Contrast (02/01/2018 5:30 PM) Narrative Performed At EXAMINATION:CT ABDOMEN PELVIS WO CONTRAST [facility] CLINICAL HISTORY:Abd painunspecified TECHNIQUE: Multiple axial images of the abdomen and pelvis were obtained without intravenous administration of iodinated contrast. Sagittal and coronal computerized reformatted images were also obtained. The lack of intravenous contrast reduces the sensitivity of detecting solid organ disease. COMPARISON:CT abdomen and pelvis 10/27/2017 FINDINGS: 1.There is a stable moderate volume of ascites. The liver is cirrhotic. 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 2.The unenhanced pancreas, gallbladder, adrenals and kidneys, and urinary bladder are within normal limits. 3.There is no bowel obstruction or obvious acute bowel inflammation. Stomach is unremarkable. The appendix is not definitely seen. 4.Small right and kgaro-dh-yeaevrsr left pleural effusions are again noted. 5.There is no significant skeletal abnormality. IMPRESSION: Cirrhosis and stigmata of portal hypertension without significant interval change. [id number] Procedure Note Interface, Radiology Results Incoming - 02/01/2018 5:40 PM CDT EXAMINATION: CT ABDOMEN PELVIS WO CONTRAST CLINICAL HISTORY: Abd pain unspecified TECHNIQUE: Multiple axial images of the abdomen and pelvis were obtained without intravenous administration of iodinated contrast. Sagittal and coronal computerized reformatted images were also obtained. The lack of intravenous contrast reduces the sensitivity of detecting solid organ disease. COMPARISON: CT abdomen and pelvis 10/27/2017 FINDINGS: 1. There is a stable moderate volume of ascites. The liver is cirrhotic. 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 2. The unenhanced pancreas, gallbladder, adrenals and kidneys, and urinary bladder are within normal limits. 3. There is no bowel obstruction or obvious acute bowel inflammation. Stomach is unremarkable. The appendix is not definitely seen. 4. Small right and fvsij-mj-rruzcqim left pleural effusions are again noted. 5. There is no significant skeletal abnormality. IMPRESSION: Cirrhosis and stigmata of portal hypertension without significant interval change. [id number] Performing Organization Address City/[facility]/Zipcode Phone Number [facility] [address] [place] [address] Troponin (02/01/2018 4:17 PM) Troponin <0.300 0.000 - 0.300 ng/mL [facility] DEPARTMENT OF Comment: PATHOLOGY AND GENOMIC 0.30 - 1.49 ng/mlMay indicate increased risk of acute MEDICINE coronary syndrome. >=1.5 ng/mlConsistent with acute myocardial infarction. The diagnostic value of a single normal or non-diagnostic result is questionable.Serial samples at 2-6 hour intervals are required to rule out acute myocardial injury. Specimen Plasma specimen Performing Organization Address [facility] Phone Number [facility] DEPARTMENT OF PATHOLOGY AND [address] [place] [address] [address] Creatine kinase, total (CPK) (02/01/2018 4:17 PM) Creatine kinase 122 39 - 308 U/L [facility] DEPARTMENT OF PATHOLOGY AND [facility] Specimen Plasma specimen Performing Organization Address [facility] Phone Number [facility] DEPARTMENT [facility] AND [address] [place] [address] Dr [address] Amylase level (02/01/2018 4:17 PM) Amylase 71 13 - 73 U/L [facility] DEPARTMENT OF PATHOLOGY AND [facility] Specimen Plasma specimen Performing Organization Address [facility] Phone Number [facility] AND [address] [place] [address] Estimated GFR (12/14/2017 8:55 AM)Only the most recent of3 resultswithin the time period is included. GFR Non Af Amer >90 mL/min/1.73 m2 [facility] DEPARTMENT OF PATHOLOGY AND [facility] MEDICINE GFR Af Amer >90 mL/min/1.73 m2 [facility] DEPARTMENT OF Comment: PATHOLOGY AND [facility] Chronic kidney disease: <60 mL/min/1.73m2 MEDICINE Kidney failure: <15 mL/min/1.73m2 The estimated GFR is calculated from the IDMS-traceable Modification of Diet in Renal Disease Equation. The accuracy of the calculation is poor when the creatinine is normal. Calculated values >90 mL/min/1.73m2 are not reported. This equation has not been validated in children (<18 years), women, the elderly (>70 years), or ethnic groups other than Caucasians and Americans. Specimen Plasma specimen Performing Organization Address [facility]/Zipcode Phone Number [facility] DEPARTMENT OF PATHOLOGY AND [address] [place] [address] GENOMIC MEDICINE Body fluid consult (12/13/2017 2:15 PM)Only the most recent of2 resultswithin the time period is included. Body fluid consult Done [facility] DEPARTMENT OF PATHOLOGY Comment: AND GENOMIC MEDICINE Agree with cell count results. Reviewed by Dr. Letty Dowling Specimen Fluid Performing Organization Address City/[facility] Phone Number [facility] DEPARTMENT OF PATHOLOGY AND [address] [place] [address] GENOMIC MEDICINE after 03/04/2017 Insurance Payer Benefit Plan / Group Subscriber ID Type Phone Address PENDING MEDICAID PENDING DISABILITY MEDICAID xxxxxxxxx Medicaid COVERAGE PENDING MEDICAID PENDING DISABILITY MEDICAID xxxxxxxxx Medicaid COVERAGE
[2018-03-05] MEDS ORDERED: MORPHINE 4 MG/ML SYR ONE (21:23)
[2018-03-05] MEDS ORDERED: ONDANSETRON 4 MG/2 ML VIAL ONE (21:23)
[2018-03-05 21:27] LABS: Absolute Monocytes 1.1 K/uL (0.1-1.3); Absolute Neutrophil 8.9 K/uL (1.8-8.0); Basophils % 0.3 % (0-1.3); Eosinophils % 1.6 % (0-4.4); Hematocrit 35.1 % (39.6-49.0); Lymphocytes % 8.8 % (15.3-44.8); MCH 35.2 pg (27.0-35.0); MCV 102.1 fL (80-100); MPV 8.9 fL (7.6-11.3); RBC Red Blood Cell Count 3.44 M/uL (4.33-5.43)
[2018-03-05 21:42] LABS: Protime INR 1.85
[2018-03-05 21:46] LABS: ALT/SGPT 44 U/L (12-78); AST/SGOT 62 U/L (15-37); Albumin 2.3 g/dL (3.4-5.0); Alkaline Phosphatase 140 U/L (45-117); BUN Blood Urea Nitrogen 10 mg/dL (7-18); Bicarbonate 27 mmol/L (21-32); Bilirubin Direct 0.9 mg/dL (0-0.2); Bilirubin Total 2.4 mg/dL (0.2-1.0); Glucose Level 139 mg/dL (74-106); Lipase 353 U/L (73-393); Magnesium 2.1 mg/dL (1.8-2.4); NT PRO-BNP 558 pg/mL (<125); Potassium 3.2 mmol/L (3.5-5.1); Protein, Total 6.4 g/dL (6.4-8.2); Sodium Level 136 mmol/L (136-145); Troponin (Emerg Dept Use Only) < 0.02 ng/mL (0.0-0.045)
[2018-03-05 21:53] LABS: Arterial Blood Carboxyhemoglob 2.2 % (0-1.5); Blood Gas Oxyhemoglobin 87.7 % (94-97); Blood O2 Saturation 90.3 % (92-98.5)
--- NOTE | 2018-03-05 21:55 | RAD REPORT ---
EXAM DESCRIPTION: RAD - Abdomen Acute Series - 03/05/2018 9:40 pm CLINICAL HISTORY: Abdominal distention FINDINGS: Large right pleural effusion is present. Free air is not seen beneath the diaphragm. The abdomen is hazy suspicious for ascites Stomach is mildly distended with air. Remainder of the bowel gas pattern is unremarkable
[2018-03-05] MEDS ORDERED: POTASSIUM 25 MEQ EFFERV TAB ONE (22:03)
[2018-03-05 22:15] LABS: Blood Morphology Comment NOT SEEN (NOT SEEN); Platelet Estimate DECR; Urine White Blood Cell Casts OK
[2018-03-05] MEDS ORDERED: LORazepam 2 MG/ML VIAL ONE (22:37)
--- NOTE | 2018-03-05 23:54 | ER ---
Nurse's Notes [facility] Name: Nico Moulton Age: 63 yrs Sex: Male : 1955 Arrival Date: 03/05/2018 Time: 20:46 Bed 7 Private MD: Diagnosis: Abdominal pain. Gross ascitis. Right pleural effusion Presentation: 03/05 20:50 Presenting complaint: EMS states: they were toned out for report of pt with SOB after bb pt recently discharged form [facility] pt has liver disease and had several liters removed while at [facility]. Transition of care: patient was not received from another setting of care. Onset of symptoms was March 05, 2018. Risk Assessment: Do you want to hurt yourself or someone else? Patient reports no desire to harm self or others. Initial Sepsis Screen: Does the patient meet any 2 criteria? No. Patient's initial sepsis screen is negative. Does the patient have a suspected source of infection? No. Patient's initial sepsis screen is negative. Care prior to arrival: None. 20:50 Method Of Arrival: EMS: [facility] bb 20:50 Acuity: RONNY 2 bb Historical: - Allergies: 21:00 No Known Allergies; bb - Immunization history:: Adult Immunizations unknown. - Social history:: Smoking status: Patient uses tobacco products, denies chronic smoking, but will smoke occasionally, Patient/guardian denies using alcohol. - Ebola Screening: : No symptoms or risks identified at this time. Screenin:00 Abuse screen: Denies threats or abuse. Nutritional screening: No deficits noted. ea Tuberculosis screening: No symptoms or risk factors identified. Fall Risk IV access (20 points). Assessment: 21:05 General: Appears uncomfortable, Behavior is cooperative, restless. Pain: Complains of ea pain in abdomen Pain radiates to back Pain currently is 10 out of 10 on a pain scale. Quality of pain is described as aching, pressure. Neuro: Level of Consciousness is awake, alert, obeys commands, Oriented to person, place, time, situation. Cardiovascular: Heart tones S1 S2 present Patient's skin is warm and dry. Respiratory: Airway is patent Respiratory effort is even, Respiratory pattern is tachypnea Breath sounds are clear bilaterally. GI: Abdomen is distended, noted to have ascites, Bowel sounds present X 4 quads. Derm: Skin is dry, Skin is jaundiced, Skin temperature is warm. 22:34 Reassessment: Patient and/or family updated on plan of care and expected duration. Pain ea level reassessed. states pt is anxious, provider notified, medication order obtained, medication administered, pt tolerated well. 03/06 00:24 Reassessment: Patient and/or family updated on plan of care and expected duration. Pain ea level reassessed. Report called to [facility] in [place]. 00:29 Reassessment: Patient and/or family updated on plan of care and expected duration. Pain ea level reassessed. wheezing noted, provider notified, med order obtained. Pt tolerating well. Vital Signs: 03/05 21:00 BP 127 / 84; Pulse 101; Resp 22 S; Temp 98.7(O); Pulse Ox 94% on R/A; Weight 66.22 kg bb (R); Height 5 ft. 6 in. (167.64 cm) (R); Pain 10; 21:51 BP 130 / 83; Pulse 92; Resp 26; Pulse Ox 95% on R/A; ea 22:36 BP 126 / 78; Pulse 90; Resp 26; Pulse Ox 93% on R/A; ea 03/06 00:27 BP 103 / 89; Pulse 90; Resp 20; Pulse Ox 99% on Nebulizer Mask; ea 00:58 BP 110 / 80; Pulse 90; Resp 20; Temp 98; Pulse Ox 97% on 2 lpm NC; ea 03/05 21:00 Body Mass Index 23.56 (66.22 kg, 167.64 cm) bb 03/05 22:36 Pt placed on 2L of O2 per n/c ea ED Course: 20:46 Patient arrived in ED. al2 20:48 Kaushik Connelly MD is Attending Physician. pkl 20:57 Triage completed. bb 21:00 Arm band placed on Patient placed in an exam room, on a stretcher, on patient monitor, bb on pulse oximetry. EKG completed in triage. Results shown to MD. 21:10 Patient has correct armband on for positive identification. Placed in gown. Bed in low ea position. Call light in reach. Side rails up X2. 21:11 Catalina Torres, CELE is Primary Nurse. ea 21:40 X-ray completed. Patient tolerated procedure poorly. Patient moved back from radiology. 1 21:40 XRAY Abdomen Acute Series In Process Unspecified. EDMS 03/06 01:00 No provider procedures requiring assistance completed. Patient transferred, IV remains ea in place. Administered Medications: 03/05 21:19 Drug: Zofran 4 mg Route: IVP; Site: left antecubital; ea 22:00 Follow up: Response: No adverse reaction ea 21:21 Drug: morphine 2 mg Route: IVP; Site: left antecubital; ea 22:00 Follow up: Response: No adverse reaction; Pain is decreased ea 21:59 Drug: K-Lyte Effervescent Tablet 50 mEq Route: PO; ea 22:30 Follow up: Response: No adverse reaction ea 22:33 Drug: Ativan 1 mg Route: IVP; Site: left antecubital; ea 23:00 Follow up: Response: No adverse reaction ea 03/06 00:32 Drug: Albuterol - atroVENT (3:1) (2.5 mg - 0.5 mg) 3 ml Route: Nebulizer; ea 00:58 Follow up: Response: No adverse reaction; Wheezing diminished ea 00:58 Drug: morphine 2 mg Route: IVP; Site: left antecubital; ea 01:16 Follow up: Response: medication adminsitered at transfer ea Outcome: 03/05 23:53 ER care complete, transfer ordered by MD. campbell 03/06 01:00 Transferred by ground EMS to [facility], X-rays sent w/ patient. ea Condition: stable Instructed on the need for transfer. 01:16 Patient left the ED. ea Signatures: Dispatcher [employer] EDOK Kaushik Connelly MD MD pkl Harvey, Martha 1 Cassie Tejeda RN RN Catalina Angelo RN RN Shweta Alonzo Corrections: (The following items were deleted from the chart) 00:31 00:24 Reassessment: Patient and/or family updated on plan of care and expected ea duration. Pain level reassessed. Patient is alert, oriented x 3, equal unlabored respirations, skin warm/dry/pink. Report called to [facility] in [place] cher
--- NOTE | 2018-03-05 23:54 | EDPHYS ---
Physician Documentation [facility] Name: Nico Moulton Age: 63 yrs Sex: Male : 1955 Arrival Date: 03/05/2018 Time: 20:46 Bed 7 Private MD: ED Physician Kaushik Connelly HPI: 03/05 21:09 This 63 yrs old Male presents to ER via EMS with unknown complaint. pkl 21:09 The patient presents with abdominal pain abdominal distention that is diffuse. Onset: pkl The symptoms/episode began/occurred today. Associated signs and symptoms: Pertinent positives: shortness of breath. Patient was discharged from [facility] yesterday. Patient was admitted for about 1 week and had several liters of fluid drained from his abdomen. Historical: - Allergies: 21:00 No Known Allergies; bb - Immunization history:: Adult Immunizations unknown. - Social history:: Smoking status: Patient uses tobacco products, denies chronic smoking, but will smoke occasionally, Patient/guardian denies using alcohol. - Ebola Screening: : No symptoms or risks identified at this time. ROS: 21:09 Eyes: Negative for injury, pain, redness, and discharge, ENT: Negative for injury, pkl pain, and discharge, Neck: Negative for injury, pain, and swelling, Cardiovascular: Negative for chest pain, palpitations, and edema, Respiratory: Negative for shortness of breath, cough, wheezing, and pleuritic chest pain. 21:09 Abdomen/GI: Positive for abdominal pain, abdominal distension, of the right upper quadrant, left upper quadrant, right lower quadrant and left lower quadrant, Negative for nausea, vomiting, and diarrhea. 21:09 Back: Negative for acute changes. 21:09 : Negative for urinary symptoms. 21:09 MS/extremity: Negative for acute changes. 21:09 Skin: Negative for rash. 21:09 Neuro: Negative for dizziness. Exam: 21:09 Head/Face: Normocephalic, atraumatic. Eyes: Pupils equal round and reactive to light, pkl extra-ocular motions intact. Lids and lashes normal. Conjunctiva and sclera are non-icteric and not injected. Cornea within normal limits. Periorbital areas with no swelling, redness, or edema. ENT: Nares patent. No nasal discharge, no septal abnormalities noted. Tympanic membranes are normal and external auditory canals are clear. Oropharynx with no redness, swelling, or masses, exudates, or evidence of obstruction, uvula midline. Mucous membranes moist. Neck: Trachea midline, no thyromegaly or masses palpated, and no cervical lymphadenopathy. Supple, full range of motion without nuchal rigidity, or vertebral point tenderness. No Meningismus. Chest/axilla: Normal chest wall appearance and motion. Nontender with no deformity. No lesions are appreciated. Cardiovascular: Regular rate and rhythm with a normal S1 and S2. No gallops, murmurs, or rubs. Normal PMI, no JVD. No pulse deficits. Respiratory: Lungs have equal breath sounds bilaterally, clear to auscultation and percussion. No rales, rhonchi or wheezes noted. No increased work of breathing, no retractions or nasal flaring. 21:09 Abdomen/GI: Inspection: distension, that is severe. 21:09 Back: Exam negative for acute changes. 21:09 : Exam negative for acute changes. 21:09 Musculoskeletal/extremity: Exam is negative for acute changes. 21:09 Skin: Exam negative for rash. 21:09 Neuro: Orientation: appropriate for stated age, Mentation: appropriate for stated age, Cranial nerves: grossly normal, Motor: is normal. Vital Signs: 21:00 BP 127 / 84; Pulse 101; Resp 22 S; Temp 98.7(O); Pulse Ox 94% on R/A; Weight 66.22 kg bb (R); Height 5 ft. 6 in. (167.64 cm) (R); Pain 10/10; 21:51 BP 130 / 83; Pulse 92; Resp 26; Pulse Ox 95% on R/A; ea 22:36 BP 126 / 78; Pulse 90; Resp 26; Pulse Ox 93% on R/A; ea 03/06 00:27 BP 103 / 89; Pulse 90; Resp 20; Pulse Ox 99% on Nebulizer Mask; ea 00:58 BP 110 / 80; Pulse 90; Resp 20; Temp 98; Pulse Ox 97% on 2 lpm NC; ea 03/05 21:00 Body Mass Index 23.56 (66.22 kg, 167.64 cm) bb 03/05 22:36 Pt placed on 2L of O2 per n/c ea MDM: 20:48 Patient medically screened. pkl 23:50 Data reviewed: vital signs, nurses notes, lab test result(s), EKG, radiologic studies, pkl plain films. 03/05 21:05 Order name: Basic Metabolic Panel pkl 03/05 21:05 Order name: CBC with Diff pkl 03/05 21:05 Order name: LFT's pkl 03/05 21:05 Order name: Magnesium pkl 03/05 21:05 Order name: NT PRO-BNP; Complete Time: 21:50 pkl 03/05 21:05 Order name: PT-INR; Complete Time: 21:50 pkl 03/05 21:05 Order name: Troponin (emerg Dept Use Only); Complete Time: 21:50 pkl 03/05 21:05 Order name: Lipase; Complete Time: 21:50 pkl 03/05 21:05 Order name: AMMONIA; Complete Time: 23:17 pkl 03/05 21:06 Order name: ABG; Complete Time: 23:17 pkl 03/05 21:06 Order name: Basic Metabolic Panel; Complete Time: 21:50 EDMS 03/05 21:06 Order name: CBC with Automated Diff; Complete Time: 23:17 EDMS 03/05 21:06 Order name: Liver (Hepatic) Function; Complete Time: 21:50 EDMS 03/05 21:06 Order name: Magnesium; Complete Time: 21:50 EDMS 03/05 21:05 Order name: EKG; Complete Time: 21:06 pkl 03/05 21:05 Order name: Cardiac monitoring; Complete Time: 21:14 pkl 03/05 21:05 Order name: EKG - Nurse/Tech; Complete Time: 21:22 pkl 03/05 21:05 Order name: IV Saline Lock; Complete Time: 21:15 pkl 03/05 21:05 Order name: Labs collected and sent; Complete Time: 21:22 pkl 03/05 21:05 Order name: O2 Per Protocol; Complete Time: 21:15 pkl 03/05 21:05 Order name: O2 Sat Monitoring; Complete Time: 21:15 pkl 03/05 21:09 Order name: XRAY Abdomen Acute Series; Complete Time: 23:17 pkl 03/05 21:33 Order name: CBC Smear Scan; Complete Time: 23:17 EDMS Administered Medications: 21:19 Drug: Zofran 4 mg Route: IVP; Site: left antecubital; ea 22:00 Follow up: Response: No adverse reaction ea 21:21 Drug: morphine 2 mg Route: IVP; Site: left antecubital; ea 22:00 Follow up: Response: No adverse reaction; Pain is decreased ea 21:59 Drug: K-Lyte Effervescent Tablet 50 mEq Route: PO; ea 22:30 Follow up: Response: No adverse reaction ea 22:33 Drug: Ativan 1 mg Route: IVP; Site: left antecubital; ea 23:00 Follow up: Response: No adverse reaction ea 03/06 00:32 Drug: Albuterol - atroVENT (3:1) (2.5 mg - 0.5 mg) 3 ml Route: Nebulizer; ea 00:58 Follow up: Response: No adverse reaction; Wheezing diminished ea 00:58 Drug: morphine 2 mg Route: IVP; Site: left antecubital; ea 01:16 Follow up: Response: medication adminsitered at transfer ea Disposition: 03/05/18 23:53 Transfer ordered to Other Acute Care Facility. Diagnosis is Abdominal pain. Gross ascitis. Right pleural effusion. - Reason for transfer: Higher level of care. - Accepting physician is Dr. Renee. - Condition is Stable. - Problem is new. - Symptoms have improved. Signatures: Dispatcher [employer] [facility] Kaushik Connelly MD MD pkCassie Gavin, RN RN Catalina Angelo RN RN ea Corrections: (The following items were deleted from the chart) 03/05 21:27 21:06 Chest Single View+RAD.[email or web address].[email or web address] ordered. [facility] 03/06 01:16 03/05 23:53 03/05/2018 23:53 Transfer ordered to Other Acute Care Facility. Diagnosis ea is Abdominal pain. Gross ascitis. Right pleural effusion. Reason for transfer: Higher level of care. Accepting physician is Dr. Renee. Condition is Stable. Problem is new. Symptoms have improved. pkl
[2018-03-06] MEDS ORDERED: IPRATROPIUM BROM 0.5MG/2.5ML ONE (00:29)
[2018-03-06] MEDS ORDERED: ALBUTEROL 2.5 MG/3 ML NEB SOL ONE (00:29)
[2018-03-06 01:47] VITALS: TEMP 98.7
[2018-03-06 01:50] VITALS: BP 103/89; O2SAT 99
--- NOTE | 2018-03-06 06:06 | EKG ---
Test Date: 2018-03-05 Test Time: 20:53:14 Floor Tiling Professional: OLENA MEASUREMENT RESULTS: Intervals: Rate: 99 NE: 304 QRSD: 80 QT: 278 QTc: 356 [place]: P: -6 NE: 304 QRS: -25 T: -7 INTERPRETIVE STATEMENTS: Sinus rhythm with 1st degree AV block Nonspecific T wave abnormality Abnormal ECG No previous ECG available for comparison Electronically Signed On 03-06-18 06:06:00 POST ADOPTION COORDINATOR by Luther Reyes
== END 2018-03-06 01:16 ==
LOC: ER 20:45
DX: R18.8 Other ascites (principal); J90 Pleural effusion, not elsewhere classified; Z72.0 Tobacco use
CPT/HCPCS: 36415; 74022; 80048; 80076; 82140; 82805; 83690; 83735; 83880; 84484; 85025; 85610; 93005; 94640; 96374; 96375; 99285; J2405

== ENCOUNTER 2018-04-30 22:50 | Emergency (ER) | payer OTHER ==
--- OUTSIDE RECORDS SUMMARY | 2018-04-30 22:55 | XMS REPORT | Clinical Summary ---
:1955 Author Organization [facility] Address [address] [place] [address] Care Team Providers Name Role Phone Pavel Herr MD Primary Care Provider Allergies Active Allergy Reactions Severity Noted Date Comments Dicyclomine Other (See Comments) 10/27/2017 PATIENT STATES THIS MED CAUSES A DROP IN HIS BLOOD PRESSURE Medications Medication Sig Dispensed Refills Start End Date Status Date multivitamin with Take 1 0 Active minerals tablet tablet by mouth every evening. folic acid (FOLVITE) 1 Take 1 mg by 0 Active MG tablet mouth every evening. thiamine 100 MG tablet Take 100 mg 0 Active by mouth every evening. zinc sulfate (ZINCATE) Take 220 mg 0 Active 220 (50) mg capsule by mouth every evening. ferrous sulfate 325 (65 Take 325 mg 0 Active FE) MG tablet by mouth every other day. lactulose 20 gram/30 mL Take 10 g by 0 Active solution mouth 3 (three) times a day. pantoprazole (PROTONIX) Take 40 mg 0 Active 40 MG EC tablet by mouth every morning. vitamin B complex (B-100 Take 1 0 Active COMPLEX ORAL) capsule by mouth every evening. traMADol (ULTRAM) 50 mg Take 50 mg 0 Active tablet by mouth every 8 (eight) hours as needed for moderate pain. citalopram (CeleXA) 20 Take 1 30 tablet 2 Active MG tabletIndications: tablet (20 8 Anxiety, Depression, mg total) by controlled mouth daily. promethazine (PHENERGAN) Take 1 30 tablet 0 Active 12.5 MG tablet (12.5 8 tabletIndications: mg total) by Nausea mouth every 8 (eight) hours as needed for nausea or vomiting. milk thistle 175 mg Take 175 mg 0 Active tablet by mouth every evening. mirtazapine (REMERON) 30 TAKE 1 30 tablet 0 Active MG tabletIndications: TABLET BY 8 Psychophysiological MOUTH AT insomnia NIGHT spironolactone Take 2 60 tablet 0 05/20/19 Active (ALDACTONE) 100 MG tablets (200 8 19 tablet mg total) by mouth daily for 30 days. riFAXimin (XIFAXAN) 550 Take 1 60 tablet 0 05/20/19 Active mg tablet tablet (550 8 19 mg total) by mouth 2 (two) times a day for 30 days. sulfamethoxazole-trimeth Take 1 60 tablet 3 12/17/19 Active oprim (BACTRIM DS) tablet by 8 19 800-160 mg per tablet mouth daily for 240 days. pantoprazole (PROTONIX) Take 40 mg 0 10/30/19 Discontinued 40 MG EC tablet by mouth 18 daily. citalopram (CeleXA) 40 Take 40 mg 0 12/15/19 Discontinued MG tablet by mouth 18 [...] furosemide (LASIX) 20 mg Take 20 mg 0 12/15/19 Discontinued tablet by mouth 2 18 [...] ondansetron (ZOFRAN) 4 Take 4 mg by 0 02/26/20 Discontinued MG tablet mouth every 18 8 (eight) hours as needed for nausea or vomiting. hydrOXYzine (VISTARIL) Take 1 po 30 capsule 2 02/26/20 Discontinued 50 MG qhs prn 8 18 capsuleIndications: insomnia Psychophysiological insomnia mirtazapine (REMERON) 15 Take 1 30 tablet 0 02/16/20 Discontinued MG tablet tablet (15 8 18 mg total) by mouth nightly. furosemide (LASIX) 40 mg Take 1 60 tablet 0 03/18/20 Discontinued tablet tablet (40 8 18 mg total) by mouth 2 (two) times a day for 30 days. spironolactone Take 1 60 tablet 0 03/18/20 Discontinued (ALDACTONE) 25 MG tablet tablet (25 8 18 mg total) by mouth 2 (two) times a day for 30 days. riFAXimin (XIFAXAN) 550 Take 1 28 tablet 0 02/19/20 mg tablet tablet (550 8 18 mg total) by mouth 2 (two) times a day for 14 days. mirtazapine (REMERON) 30 Take 1 30 tablet 0 03/31/20 Discontinued MG tabletIndications: tablet (30 8 18 Psychophysiological mg total) by insomnia mouth nightly. amoxicillin-pot Take 1 28 tablet 0 03/21/20 Discontinued clavulanate (AUGMENTIN) tablet by 8 18 875-125 mg per tablet mouth 2 (two) times a day for 14 days. furosemide (LASIX) 40 mg Take 1 60 tablet 0 03/21/20 Discontinued tablet tablet (40 8 18 mg total) by mouth 2 (two) times a day for 30 days. spironolactone Take 1 60 tablet 0 03/21/20 Discontinued (ALDACTONE) 25 MG tablet tablet (25 8 18 mg total) by mouth 2 (two) times a day for 30 days. furosemide (LASIX) 40 mg Take 1 60 tablet 0 04/20/20 tablet tablet (40 8 18 mg total) by mouth 2 (two) times a day for 30 days. spironolactone Take 1 60 tablet 0 04/20/20 Discontinued (ALDACTONE) 25 MG tablet tablet (25 8 18 mg total) by mouth 2 (two) times a day for 30 days. Active Problems Problem Noted Date Recurrent right pleural effusion 04/25/2018 Pleural effusion 04/14/2018 Hepatitis C 04/07/2018 Pleural effusion, right 04/06/2018 Bacteremia 03/14/2018 Other cirrhosis of liver 03/06/2018 E. coli sepsis 02/25/2018 Cirrhosis of liver with ascites 02/24/2018 Psychophysiological insomnia 02/15/2018 Nausea 02/15/2018 Spontaneous bacterial peritonitis 02/01/2018 Ascites due to alcoholic cirrhosis 12/13/2017 Ascites 10/28/2017 Resolved Problems Problem Noted Date Resolved Date Intractable abdominal pain 10/27/2017 02/15/2018 Encounters Date Type Specialty Care Team Description 04/25/2018 [facility] Internal João Fowler Recurrent right pleural - Encounter Medicine DO Brennan effusion (Primary Dx) 04/29/2018 Caridad Cash MD 04/18/2018 Telephone Transplant Thelma Rdz Insurance status 04/18/2018 Telephone Transplant Leigha Main RN Referral - Liver Txp (for inpt liver transplant eval) 04/14/2018 [facility] Internal Wilson Graham Ascites due to alcoholic cirrhosis (HCC) (Primary Dx); - Encounter Medicine MD Rosey Depression, unspecified depression type; 04/20/2018 Force, Anxiety; Jordan Mac, Pleural effusion; Other cirrhosis of liver (HCC); Pain of upper abdomen; Leukocytosis, unspecified type 04/06/2018 [facility] Internal Malcolm, João Pleural effusion, right - Encounter Medicine DO Brennan (Primary Dx) 04/08/2018 Scott Champagne, 03/31/2018 Refill Internal Pavel Herr, Psychophysiological Medicine insomnia 03/15/2018 Intake Access N/A 03/06/2018 [facility] Internal [facility], Arusha Bacteremia (Primary Dx) ; - Encounter Medicine MD Moira Ascites due to alcoholic cirrhosis (HCC) 03/21/2018 Negra Chinchilla MD Teqwimuah, Remy, DO 02/24/2018 [facility] Internal Christophe Mcpherson MD Cirrhosis of liver with ascites, unspecified hepatic cirrhosis type (HCC) ( Primary Dx); - Encounter Medicine Lit Maynard Abdominal pain, unspecified abdominal location; 03/04/2018 MD David SIRS (systemic inflammatory response syndrome) (HCC) Jose Mcmullen MD Kohlnhofer, Matthew, MD 02/15/2018 Office Visit Internal Pavel Herr, Psychophysiological insomnia (Primary Dx); Medicine BMI 25.0-25.9,adult; Nausea 02/01/2018 [facility] Internal [facility], [facility] Bin, Spontaneous bacterial peritonitis (HCC) (Primary Dx); - Encounter Medicine Abdominal wall cellulitis; 02/04/2018 Akash Zuñiga MD Other ascites 01/21/2018 Telephone Family Medicine Afia Dewey 01/07/2018 Office Visit Internal Pavel Herr, Anxiety (Primary Dx); Medicine BMI 22.0-22.9, adult; Psychophysiological insomnia; Depression, controlled; Other chronic pain 12/12/2017 Emergency General Surgery Wingkun, Ascites due to alcoholic cirrhosis (Primary Dx); - Ever Peacock, Alcoholic cirrhosis of liver with ascites 12/14/2017 Linda Rosa MD Teqwimuah, Remy, DO 10/27/2017 [facility] Internal Kim, Karl H, Intractable abdominal pain (Primary Dx); - Encounter Medicine Other ascites; 10/29/2017 Al-Linda Hermosillo, Ascites due to alcoholic cirrhosis after 04/29/2017 Immunizations Name Dates Previously Given Next Due FLUCELVAX QUAD PF (0.5mL syringe) 02/04/2018 Family History Medical History Relation Name Comments Aneurysm Father Multiple sclerosis Mother Relation Name Status Comments Father Mother Social History Tobacco Use Types Packs/Day Years Used Date Former Smoker Cigarettes 0.5 25 Started: 02/24/2018 Smokeless Tobacco: Former User Chew Quit: 02/05/1956 Comments: pt stopped smoking 2014 Alcohol Use Drinks/Week oz/Week Comments No Quit drinking 11/04/2014 Sex Assigned at Date Recorded Not on file Job Start Date Occupation Industry Not on file Not on file Not on file Travel History Travel Start Travel End No recent travel history available. Last Filed Vital Signs Vital Sign Reading Time Taken Blood Pressure 116/63 04/29/2018 11:19 [employer] Pulse 76 04/29/2018 11:19 [employer] Temperature 36.8 C (98.2 F) 04/29/2018 11:19 [employer] Respiratory Rate 18 04/29/2018 11:19 [employer] Oxygen Saturation 98% 04/29/2018 11:19 [employer] Inhaled Oxygen Concentration - - Weight 61.2 kg (135 lb) 04/25/2018 1:38 [employer] Height 165.1 cm (5' 5") 04/25/2018 1:38 [employer] Body Mass Index 22.47 04/25/2018 1:38 [employer] Plan of Treatment Date Type Specialty Care Team Description 05/09/2018 Office Visit Internal Medicine Pavel Herr MD [address] [place] [address] [place] [id number] [phone] Health Maintenance Due Date Last Done Comments COLON CANCER SCREENING 2007 SHINGLES VACCINES (1 of 2) 2007 INFLUENZA VACCINE Completed 02/04/2018, 12/31/2017 Procedures Procedure Name Priority Date/Time Associated Comments Diagnosis XR CHEST STAT 04/28/2018 9:42 Results for this INSPIRATION/EXPIRATION [employer] procedure are in the results section. US THORACENTESIS WITH Routine 04/28/2018 9:36 Results for this IMAGING [employer] procedure are in the results section. GRAM STAIN Routine 04/28/2018 9:29 Results for this [employer] procedure are in the results section. ANAEROBIC CULTURE Routine 04/28/2018 9:29 [employer] AEROBIC CULTURE Routine 04/28/2018 9:29 [employer] PROTHROMBIN TIME WITH INR Routine 04/28/2018 5:23 Results for this [employer] procedure are in the results section. HC COMPLETE BLD COUNT Routine 04/28/2018 5:23 Results for this W/AUTO DIFF [employer] procedure are in the results section. ESTIMATED GFR Routine 04/27/2018 4:30 Results for this [employer] procedure are in the results section. BASIC METABOLIC PANEL Routine 04/27/2018 4:30 Results for this [employer] procedure are in the results section. ESTIMATED GFR STAT 04/25/2018 2:20 Results for this [employer] procedure are in the results section. TYPE AND SCREEN Routine 04/25/2018 2:20 Results for this [employer] procedure are in the results section. PARTIAL THROMBOPLASTIN TIME STAT 04/25/2018 2:20 Results for this (PTT) [facility] [employer] procedure are in the results section. PROTHROMBIN TIME WITH INR STAT 04/25/2018 2:20 Results for this [employer] procedure are in the results section. COMPREHENSIVE METABOLIC STAT 04/25/2018 2:20 Results for this PANEL [employer] procedure are in the results section. HC COMPLETE BLD COUNT STAT 04/25/2018 2:20 Results for this W/AUTO DIFF [employer] procedure are in the results section. XR CHEST 1 VW PORTABLE STAT 04/25/2018 2:02 Results for this [employer] procedure are in the results section. ECG ED PRELIMINARY Routine 04/25/2018 1:42 Results for this INTERPRETATION [facility] [employer] procedure are in the results section. ECG 12-LEAD STAT 04/25/2018 1:39 Results for this [employer] procedure are in the results section. XR CHEST 1 VW STAT 04/20/2018 6:13 Results for this [employer] procedure are in the results section. US THORACENTESIS WITH STAT 04/20/2018 6:05 Results for this IMAGING [employer] procedure are in the results section. PREPARE FRESH FROZEN PLASMA Timed 04/20/2018 4:28 [employer] PREPARE FRESH FROZEN PLASMA Timed 04/20/2018 2:45 [employer] XR CHEST 2 VW Routine 04/20/2018 10:27 Results for this [employer] procedure are in the results section. ESTIMATED GFR Routine 04/20/2018 7:51 Results for this [employer] procedure are in the results section. PROTHROMBIN TIME WITH INR Routine 04/20/2018 7:51 Results for this [employer] procedure are in the results section. COMPREHENSIVE METABOLIC Routine 04/20/2018 7:51 Results for this PANEL [employer] procedure are in the results section. HC COMPLETE BLD COUNT Routine 04/20/2018 7:51 Results for this W/AUTO DIFF AM [employer] procedure are in the results section. MRI ABDOMEN W WO CONTRAST Routine 04/19/2018 4:22 Results for this [employer] procedure are in the results section. PROTHROMBIN TIME WITH INR Routine 04/19/2018 8:53 Results for this [employer] procedure are in the results section. HC COMPLETE BLD COUNT Routine 04/19/2018 8:53 Results for this W/AUTO DIFF AM [employer] procedure are in the results section. ESTIMATED GFR Routine 04/19/2018 8:22 Results for this [employer] procedure are in the results section. COMPREHENSIVE METABOLIC Routine 04/19/2018 8:22 Results for this PANEL [employer] procedure are in the results section. POTASSIUM LEVEL Routine 04/18/2018 5:46 Results for this [employer] procedure are in the results section. LDH Routine 04/18/2018 5:46 Results for this [employer] procedure are in the results section. XR CHEST 1 VW STAT 04/18/2018 2:13 Results for this [employer] procedure are in the results section. US THORACENTESIS WITH Routine 04/18/2018 1:30 Results for this IMAGING PM [employer] procedure are in the results section. ALBUMIN, MISC FLUID Routine 04/18/2018 1:12 Results for this [employer] procedure are in the results section. LDH, MISC FLUID Routine 04/18/2018 1:12 Results for this [employer] procedure are in the results section. FLOW CYTOMETRY EVALUATION Routine 04/18/2018 1:12 Results for this [employer] procedure are in the results section. CELL COUNT AND Routine 04/18/2018 1:12 Results for this DIFFERENTIAL, BODY FLUID [employer] procedure are in the results section. PROTEIN, MISC FLUID Routine 04/18/2018 1:12 Results for this [employer] procedure are in the results section. GLUCOSE LEVEL, MISC FLUID Routine 04/18/2018 1:12 Results for this [employer] procedure are in the results section. GRAM STAIN Routine 04/18/2018 1:12 Results for this [employer] procedure are in the results section. ANAEROBIC CULTURE Routine 04/18/2018 1:12 Results for this [employer] procedure are in the results section. AEROBIC CULTURE Routine 04/18/2018 1:12 Results for this [employer] procedure are in the results section. PREPARE FRESH FROZEN PLASMA Timed 04/18/2018 11:45 [employer] ESTIMATED GFR Routine 04/18/2018 6:49 Results for this [employer] procedure are in the results section. PROTHROMBIN TIME WITH INR Routine 04/18/2018 6:49 Results for this [employer] procedure are in the results section. COMPREHENSIVE METABOLIC Routine 04/18/2018 6:49 Results for this PANEL AM [employer] procedure are in the results section. HC COMPLETE BLD COUNT Routine 04/18/2018 6:49 Results for this W/AUTO DIFF AM [employer] procedure are in the results section. XR CHEST 1 VW PORTABLE Routine 04/18/2018 6:34 Results for this [employer] procedure are in the results section. ESTIMATED GFR Routine 04/17/2018 3:55 Results for this [employer] procedure are in the results section. PROTHROMBIN TIME WITH INR Routine 04/17/2018 3:55 Results for this [employer] procedure are in the results section. COMPREHENSIVE METABOLIC Routine 04/17/2018 3:55 Results for this PANEL [employer] procedure are in the results section. HC COMPLETE BLD COUNT Routine 04/17/2018 3:55 Results for this W/AUTO DIFF AM [employer] procedure are in the results section. CORTISOL, 60 MINUTES Routine 04/16/2018 7:50 Results for this [employer] procedure are in the results section. CORTISOL, 30 MINUTES Routine 04/16/2018 7:22 Results for this [employer] procedure are in the results section. CORTISOL LEVEL, RANDOM Routine 04/16/2018 5:55 Results for this [employer] procedure are in the results section. ADRENOCORTICOTROPIC HORMONE Routine 04/16/2018 5:55 Results for this [employer] procedure are in the results section. ESTIMATED GFR Routine 04/16/2018 5:55 Results for this [employer] procedure are in the results section. TOTAL IRON BINDING CAPACITY Routine 04/16/2018 5:55 Results for this [employer] procedure are in the results section. FERRITIN LEVEL Routine 04/16/2018 5:55 Results for this [employer] procedure are in the results section. RETICULOCYTE COUNT Routine 04/16/2018 5:55 Results for this [employer] procedure are in the results section. HAPTOGLOBIN Routine 04/16/2018 5:55 Results for this [employer] procedure are in the results section. ALPHA FETOPROTEIN Routine 04/16/2018 5:55 Results for this [employer] procedure are in the results section. PROTHROMBIN TIME WITH INR Routine 04/16/2018 5:55 Results for this [employer] procedure are in the results section. COMPREHENSIVE METABOLIC Routine 04/16/2018 5:55 Results for this PANEL [employer] procedure are in the results section. HC COMPLETE BLD COUNT Routine 04/16/2018 5:55 Results for this W/AUTO DIFF AM [employer] procedure are in the results section. ECHOCARDIOGRAM 2D COMPLETE Routine 04/15/2018 7:03 Results for this W MMODE SPECTRAL COLOR [employer] procedure are in DOPPLER ([id number]) the results section. LACTIC ACID LEVEL Routine 04/15/2018 4:24 Results for this [employer] procedure are in the results section. CT ABDOMEN PELVIS WO STAT 04/15/2018 3:42 Results for this CONTRAST [employer] procedure are in the results section. XR CHEST 1 VW STAT 04/15/2018 1:52 Results for this [employer] procedure are in the results section. US THORACENTESIS WITH Routine 04/15/2018 1:00 Results for this IMAGING [employer] procedure are in the results section. POTASSIUM LEVEL STAT 04/15/2018 11:42 Results for this AM [employer] procedure are in the results section. CORTISOL LEVEL, RANDOM STAT 04/15/2018 11:42 Results for this AM [employer] procedure are in the results section. LACTIC ACID LEVEL STAT 04/15/2018 11:42 Results for this [employer] procedure are in the results section. CBC HEMOGRAM STAT 04/15/2018 11:42 Results for this AM [employer] procedure are in the results section. ECG 12-LEAD STAT 04/15/2018 5:30 Results for this [employer] procedure are in the results section. LDH Routine 04/15/2018 5:27 Results for this AM [employer] procedure are in the results section. ESTIMATED GFR Routine 04/15/2018 5:27 Results for this [employer] procedure are in the results section. THYROID STIMULATING HORMONE Routine 04/15/2018 5:27 Results for this [employer] procedure are in the results section. OSMOLALITY, SERUM Routine 04/15/2018 5:27 Results for this [employer] procedure are in the results section. AMMONIA LEVEL Routine 04/15/2018 5:27 Results for this [employer] procedure are in the results section. BILIRUBIN DIRECT Routine 04/15/2018 5:27 Results for this [employer] procedure are in the results section. PARTIAL THROMBOPLASTIN TIME Routine 04/15/2018 5:27 Results for this (PTT) [employer] procedure are in the results section. PROTHROMBIN TIME WITH INR Routine 04/15/2018 5:27 Results for this [employer] procedure are in the results section. PHOSPHORUS LEVEL Routine 04/15/2018 5:27 Results for this [employer] procedure are in the results section. MAGNESIUM LEVEL Routine 04/15/2018 5:27 Results for this [employer] procedure are in the results section. COMPREHENSIVE METABOLIC Routine 04/15/2018 5:27 Results for this PANEL [employer] procedure are in the results section. HC COMPLETE BLD COUNT Routine 04/15/2018 5:27 Results for this W/AUTO DIFF [employer] procedure are in the results section. HEPATITIS C VIRUS Routine 04/15/2018 5:27 Results for this QUANTITATIVE BY PCR [employer] procedure are in the results section. GRAM STAIN Routine 04/15/2018 12:50 Results for this [employer] procedure are in the results section. SPUTUM CULTURE Routine 04/15/2018 12:50 Results for this [employer] procedure are in the results section. URINE CULTURE Routine 04/14/2018 11:30 Results for this [employer] procedure are in the results section. URINALYSIS SCREEN AND Routine 04/14/2018 11:29 Results for this MICROSCOPY, WITH REFLEX TO [employer] procedure are in CULTURE the results section. URINE DRUGS OF ABUSE SCREEN Routine 04/14/2018 11:29 Results for this [employer] procedure are in the results section. RESPIRATORY PATHOGEN PANEL Routine 04/14/2018 9:46 Results for this [employer] procedure are in the results section. PREPARE FRESH FROZEN PLASMA STAT 04/14/2018 9:20 Results for this [employer] procedure are in the results section. LDH STAT 04/14/2018 9:20 Results for this [employer] procedure are in the results section. TYPE AND SCREEN STAT 04/14/2018 9:20 Results for this [employer] procedure are in the results section. LACTIC ACID LEVEL STAT 04/14/2018 9:20 Results for this [employer] procedure are in the results section. CREATINE KINASE, TOTAL STAT 04/14/2018 9:20 Results for this (CPK) [employer] procedure are in the results section. BLOOD CULTURE, AEROBIC & Routine 04/14/2018 9:20 Results for this ANAEROBIC [employer] procedure are in the results section. BLOOD CULTURE, AEROBIC & Routine 04/14/2018 9:15 Results for this ANAEROBIC [employer] procedure are in the results section. XR CHEST 1 VW STAT 04/14/2018 9:08 Results for this [employer] procedure are in the results section. XR ABDOMEN 1 VW PORTABLE STAT 04/14/2018 8:53 Results for this [employer] procedure are in the results section. US THORACENTESIS WITH STAT 04/14/2018 8:35 Results for this IMAGING [employer] procedure are in the results section. BILIRUBIN TOTAL, MISC FLUID Routine 04/14/2018 8:25 Results for this [employer] procedure are in the results section. LIPASE LEVEL, MISC FLUID Routine 04/14/2018 8:25 Results for this [employer] procedure are in the results section. PH, MISC FLUID Routine 04/14/2018 8:25 Results for this [employer] procedure are in the results section. MYCOPLASMA PNEUMONIAE BY Routine 04/14/2018 8:25 Results for this PCR [employer] procedure are in the results section. TRIGLYCERIDES, MISC FLUID Routine 04/14/2018 8:25 Results for this [employer] procedure are in the results section. ALBUMIN, MISC FLUID Routine 04/14/2018 8:25 Results for this [employer] procedure are in the results section. CELL COUNT AND Routine 04/14/2018 8:25 Results for this DIFFERENTIAL, BODY FLUID [employer] procedure are in the results section. PROTEIN, MISC FLUID Routine 04/14/2018 8:25 Results for this [employer] procedure are in the results section. LDH, MISC FLUID Routine 04/14/2018 8:25 Results for this [employer] procedure are in the results section. GLUCOSE LEVEL, MISC FLUID Routine 04/14/2018 8:25 Results for this [employer] procedure are in the results section. AMYLASE LEVEL, MISC FLUID Routine 04/14/2018 8:25 Results for this [employer] procedure are in the results section. GRAM STAIN Routine 04/14/2018 8:25 Results for this [employer] procedure are in the results section. FUNGUS SMEAR Routine 04/14/2018 8:25 Results for this [employer] procedure are in the results section. ANAEROBIC CULTURE Routine 04/14/2018 8:25 Results for this [facility] [employer] procedure are in the results section. AEROBIC CULTURE Routine 04/14/2018 8:25 Results for this [facility] [employer] procedure are in the results section. AFB STAIN Routine 04/14/2018 8:25 Results for this [facility] [employer] procedure are in the results section. VENOUS BLOOD GAS STAT 04/14/2018 7:05 Results for this [facility] [employer] procedure are in the results section. US ABDOMEN COMPLETE STAT 04/14/2018 6:45 Results for this [facility] [employer] procedure are in the results section. XR CHEST 1 VW PORTABLE STAT 04/14/2018 5:05 Results for this [facility] [employer] procedure are in the results section. ECG ED PRELIMINARY Routine 04/14/2018 3:30 Results for this INTERPRETATION [facility] [employer] procedure are in the results section. ECG 12-LEAD STAT 04/14/2018 3:27 Results for this [facility] [employer] procedure are in the results section. MANUAL DIFFERENTIAL STAT 04/14/2018 3:20 Results for this [facility] [employer] procedure are in the results section. ESTIMATED GFR STAT 04/14/2018 3:20 Results for this [facility] [employer] procedure are in the results section. LIPASE LEVEL STAT 04/14/2018 3:20 Results for this [facility] [employer] procedure are in the results section. AMYLASE LEVEL STAT 04/14/2018 3:20 Results for this [facility] [employer] procedure are in the results section. PARTIAL THROMBOPLASTIN TIME STAT 04/14/2018 3:20 Results for this (PTT) [facility] [employer] procedure are in the results section. PROTHROMBIN TIME WITH INR STAT 04/14/2018 3:20 Results for this [facility] [employer] procedure are in the results section. B NATRIURETIC PEPTIDE STAT 04/14/2018 3:20 Results for this [facility] [employer] procedure are in the results section. TROPONIN STAT 04/14/2018 3:20 Results for this [facility] [employer] procedure are in the results section. COMPREHENSIVE METABOLIC STAT 04/14/2018 3:20 Results for this PANEL [facility] [employer] procedure are in the results section. CBC WITH PLATELET AND STAT 04/14/2018 3:20 Results for this DIFFERENTIAL [facility] [employer] procedure are in the results section. XR CHEST STAT 04/08/2018 1:49 Results for this INSPIRATION/EXPIRATION [facility] [employer] procedure are in the results section. US THORACENTESIS WITH STAT 04/08/2018 1:45 Results for this IMAGING [facility] [employer] procedure are in the results section. US ABDOMINAL PARACENTESIS Routine 04/08/2018 1:44 Results for this IMAGING [facility] [employer] procedure are in the results section. CELL COUNT AND Routine 04/08/2018 1:00 Results for this DIFFERENTIAL, BODY FLUID [facility] [employer] procedure are in the results section. GRAM STAIN Routine 04/08/2018 1:00 Results for this [facility] [employer] procedure are in the results section. ANAEROBIC CULTURE Routine 04/08/2018 1:00 Results for this [facility] [employer] procedure are in the results section. AEROBIC CULTURE Routine 04/08/2018 1:00 Results for this [facility] [employer] procedure are in the results section. TRANSFUSE PLATELETS Routine 04/08/2018 11:14 [facility] [employer] ESTIMATED GFR Routine 04/08/2018 10:14 Results for this [facility] [employer] procedure are in the results section. BASIC METABOLIC PANEL Routine 04/08/2018 10:14 Results for this [facility] [employer] procedure are in the results section. PROTHROMBIN TIME WITH INR Routine 04/08/2018 10:14 Results for this [facility] [employer] procedure are in the results section. HC COMPLETE BLD COUNT Routine 04/08/2018 10:14 Results for this W/AUTO DIFF [facility] [employer] procedure are in the results section. HC COMPLETE BLD COUNT Routine 04/07/2018 9:33 Results for this W/AUTO DIFF [facility] [employer] procedure are in the results section. PROTHROMBIN TIME WITH INR Routine 04/07/2018 9:33 Results for this [facility] [employer] procedure are in the results section. PREPARE PLATELET PHERESIS Timed 04/06/2018 5:29 Results for this [facility] [employer] procedure are in the results section. PREPARE FRESH FROZEN PLASMA Routine 04/06/2018 5:29 Results for this [facility] [employer] procedure are in the results section. PREPARE FRESH FROZEN PLASMA Routine 04/06/2018 5:29 Results for this [facility] [employer] procedure are in the results section. TYPE AND SCREEN Routine 04/06/2018 5:29 Results for this [facility] [employer] procedure are in the results section. XR CHEST 2 VW STAT 04/06/2018 2:06 Results for this [facility] [employer] procedure are in the results section. ESTIMATED GFR STAT 04/06/2018 1:43 Results for this [facility] [employer] procedure are in the results section. B NATRIURETIC PEPTIDE STAT 04/06/2018 1:43 Results for this [facility] [employer] procedure are in the results section. TROPONIN STAT 04/06/2018 1:43 Results for this [facility] [employer] procedure are in the results section. COMPREHENSIVE METABOLIC STAT 04/06/2018 1:43 Results for this PANEL [facility] [employer] procedure are in the results section. PARTIAL THROMBOPLASTIN TIME STAT 04/06/2018 1:43 Results for this (PTT) [facility] [employer] procedure are in the results section. PROTHROMBIN TIME WITH INR STAT 04/06/2018 1:43 Results for this [facility] [employer] procedure are in the results section. HC COMPLETE BLD COUNT STAT 04/06/2018 1:43 Results for this W/AUTO DIFF [facility] [employer] procedure are in the results section. ECG ED PRELIMINARY Routine 04/06/2018 1:21 Results for this INTERPRETATION [facility] [employer] procedure are in the results section. ECG 12-LEAD STAT 04/06/2018 1:01 Results for this [facility] [employer] procedure are in the results section. US THORACENTESIS WITH Routine 03/21/2018 4:00 Results for this IMAGING [facility] [employer] procedure are in the results section. XR CHEST STAT 03/21/2018 3:50 Results for this INSPIRATION/EXPIRATION [facility] [employer] procedure are in the results section. ESTIMATED GFR Routine 03/21/2018 5:24 Results for this [facility] [employer] procedure are in the results section. HC COMPLETE BLD COUNT Routine 03/21/2018 5:24 Results for this W/AUTO DIFF [facility] [employer] procedure are in the results section. BASIC METABOLIC PANEL Routine 03/21/2018 5:24 Results for this [facility] [employer] procedure are in the results section. XR CHEST STAT 03/18/2018 4:53 Results for this INSPIRATION/EXPIRATION [facility] [employer] procedure are in the results section. US THORACENTESIS WITH Routine 03/18/2018 4:45 Results for this IMAGING [facility] [employer] procedure are in the results section. PROTHROMBIN TIME WITH INR Routine 03/18/2018 12:05 Results for this [facility] [employer] procedure are in the results section. ESTIMATED GFR Routine 03/18/2018 5:53 Results for this [facility] [employer] procedure are in the results section. HC COMPLETE BLD COUNT STAT 03/18/2018 5:53 Results for this W/AUTO DIFF [facility] [employer] procedure are in the results section. BASIC METABOLIC PANEL Routine 03/18/2018 5:53 Results for this [facility] [employer] procedure are in the results section. CREATINE KINASE, TOTAL Routine 03/18/2018 5:53 Results for this (CPK) [facility] [employer] procedure are in the results section. US THORACENTESIS WITH Routine 03/17/2018 3:30 Results for this IMAGING [facility] [employer] procedure are in the results section. XR CHEST 1 VW STAT 03/17/2018 3:27 Results for this [employer] procedure are in the results section. ALBUMIN, MISC FLUID Routine 03/17/2018 3:05 Results for this [employer] procedure are in the results section. TRANSFUSE FRESH FROZEN Routine 03/17/2018 2:22 PLASMA [facility] [employer] TRANSFUSE FRESH FROZEN Routine 03/17/2018 2:05 PLASMA [facility] [employer] PREPARE FRESH FROZEN PLASMA Timed 03/17/2018 12:00 Results for this [facility] [employer] procedure are in the results section. PREPARE FRESH FROZEN PLASMA Routine 03/17/2018 12:00 Results for this [facility] [employer] procedure are in the results section. TYPE AND SCREEN Routine 03/17/2018 12:00 Results for this [facility] [employer] procedure are in the results section. PROTHROMBIN TIME WITH INR STAT 03/17/2018 10:20 Results for this [facility] [employer] procedure are in the results section. PREPARE FRESH FROZEN PLASMA Timed 03/17/2018 9:35 [facility] [employer] XR CHEST 2 VW Routine 03/16/2018 3:32 Results for this [facility] [employer] procedure are in the results section. US ABDOMINAL LIMITED Routine 03/16/2018 3:02 Results for this [facility] [employer] procedure are in the results section. ESTIMATED GFR Routine 03/14/2018 6:10 Results for this [facility] [employer] procedure are in the results section. HC COMPLETE BLD COUNT Routine 03/14/2018 6:10 Results for this W/AUTO DIFF [facility] [employer] procedure are in the results section. BASIC METABOLIC PANEL Routine 03/14/2018 6:10 Results for this [facility] [employer] procedure are in the results section. XR CHEST Routine 03/13/2018 5:48 Results for this INSPIRATION/EXPIRATION [facility] [employer] procedure are in the results section. US THORACENTESIS WITH STAT 03/13/2018 5:47 Results for this IMAGING [facility] [employer] procedure are in the results section. XR CHEST 1 VW PORTABLE Routine 03/13/2018 1:24 Results for this [facility] [employer] procedure are in the results section. ESTIMATED GFR Routine 03/13/2018 12:45 Results for this [facility] [employer] procedure are in the results section. HC COMPLETE BLD COUNT Routine 03/13/2018 12:45 Results for this W/AUTO DIFF [facility] [employer] procedure are in the results section. BASIC METABOLIC PANEL Routine 03/13/2018 12:45 Results for this [facility] [employer] procedure are in the results section. US ABDOMINAL LIMITED Routine 03/12/2018 10:03 Results for this [facility] [employer] procedure are in the results section. HEPATIC FUNCTION PANEL STAT 03/12/2018 9:23 Results for this [facility] [employer] procedure are in the results section. PROTHROMBIN TIME WITH INR STAT 03/12/2018 9:23 Results for this [facility] [employer] procedure are in the results section. XR CHEST 1 VW PORTABLE Routine 03/11/2018 8:57 Results for this [facility] [employer] procedure are in the results section. ESTIMATED GFR Routine 03/09/2018 5:51 Results for this [facility] [employer] procedure are in the results section. HC COMPLETE BLD COUNT Routine 03/09/2018 5:51 Results for this W/AUTO DIFF AM [employer] procedure are in the results section. BASIC METABOLIC PANEL Routine 03/09/2018 5:51 Results for this [facility] [employer] procedure are in the results section. TYPE AND SCREEN Timed 03/08/2018 11:03 Results for this [facility] [employer] procedure are in the results section. PREPARE FRESH FROZEN PLASMA Timed 03/08/2018 10:39 [facility] [employer] XR CHEST Routine 03/07/2018 5:56 Results for this INSPIRATION/EXPIRATION [facility] [employer] procedure are in the results section. US THORACENTESIS WITH Routine 03/07/2018 5:45 Results for this IMAGING [facility] [employer] procedure are in the results section. US ABDOMINAL LIMITED Routine 03/07/2018 5:45 Results for this [facility] [employer] procedure are in the results section. CYTOLOGY Routine 03/07/2018 5:19 Results for this (NON-GYNECOLOGICAL) REQUEST [facility] [employer] procedure are in the results section. PROTHROMBIN TIME WITH INR Routine 03/07/2018 12:03 Results for this [facility] [employer] procedure are in the results section. XR CHEST 1 VW PORTABLE Routine 03/07/2018 6:43 Results for this [facility] [employer] procedure are in the results section. ESTIMATED GFR Routine 03/07/2018 4:19 Results for this [facility] [employer] procedure are in the results section. COMPREHENSIVE METABOLIC Routine 03/07/2018 4:19 Results for this PANEL [facility] [employer] procedure are in the results section. HC COMPLETE BLD COUNT Routine 03/07/2018 4:19 Results for this W/AUTO DIFF [facility] [employer] procedure are in the results section. XR CHEST 1 VW PORTABLE STAT 03/06/2018 7:00 Results for this [employer] procedure are in the results section. BODY FLUID CONSULT Routine 03/06/2018 6:46 Results for this [employer] procedure are in the results section. GLUCOSE LEVEL, MISC FLUID Routine 03/06/2018 6:46 Results for this [employer] procedure are in the results section. LDH, MISC FLUID Routine 03/06/2018 6:46 Results for this [employer] procedure are in the results section. TRIGLYCERIDES, MISC FLUID Routine 03/06/2018 6:46 Results for this [employer] procedure are in the results section. PROTEIN, MISC FLUID Routine 03/06/2018 6:46 Results for this [employer] procedure are in the results section. CELL COUNT AND Routine 03/06/2018 6:46 Results for this DIFFERENTIAL, BODY FLUID [facility] [employer] procedure are in the results section. PH, MISC FLUID Routine 03/06/2018 6:46 Results for this [employer] procedure are in the results section. FUNGUS SMEAR Routine 03/06/2018 6:46 Results for this [employer] procedure are in the results section. GRAM STAIN Routine 03/06/2018 6:46 Results for this [employer] procedure are in the results section. FUNGUS CULTURE Routine 03/06/2018 6:46 Results for this [facility] [employer] procedure are in the results section. ANAEROBIC CULTURE Routine 03/06/2018 6:46 Results for this [employer] procedure are in the results section. AEROBIC CULTURE Routine 03/06/2018 6:46 Results for this [employer] procedure are in the results section. AFB CULTURE Routine 03/06/2018 6:46 Results for this [employer] procedure are in the results section. AFB STAIN Routine 03/06/2018 6:46 Results for this [employer] procedure are in the results section. CYTOLOGY Routine 03/06/2018 6:16 Results for this (NON-GYNECOLOGICAL) REQUEST [facility] [employer] procedure are in the results section. XR CHEST 1 VW PORTABLE STAT 03/06/2018 4:50 Results for this [employer] procedure are in the results section. LDH Routine 03/06/2018 4:06 Results for this [employer] procedure are in the results section. ESTIMATED GFR Routine 03/06/2018 4:06 Results for this [employer] procedure are in the results section. CBC HEMOGRAM Routine 03/06/2018 4:06 Results for this [employer] procedure are in the results section. COMPREHENSIVE METABOLIC Routine 03/06/2018 4:06 Results for this PANEL [facility] [employer] procedure are in the results section. ESTIMATED GFR Routine 03/04/2018 5:42 Results for [...] the results section. ANAEROBIC CULTURE Routine 03/01/2018 8:28 Results for this PM CDT procedure are in the results section. TRANSFUSE FRESH FROZEN Routine 03/01/2018 7:58 PLASMA PM CDT CELL COUNT AND Routine 03/01/2018 7:28 Results for this DIFFERENTIAL, BODY FLUID PM CDT procedure are in the results section. GRAM STAIN Routine 03/01/2018 7:28 Results for this PM CDT procedure are in the results section. AEROBIC CULTURE Routine 03/01/2018 7:28 Results for this PM CDT procedure are in the results section. US ABDOMINAL PARACENTESIS Routine 03/01/2018 5:24 Results for this IMAGING PM CDT procedure are in the results section. PREPARE FRESH FROZEN PLASMA Timed 03/01/2018 3:19 Results for this AM CDT [...] in the results section. PROTHROMBIN TIME WITH INR Routine 03/01/2018 3:00 Results for this AM CDT procedure are in the results section. HC COMPLETE BLD COUNT Routine 03/01/2018 3:00 Results for this W/AUTO DIFF AM CDT procedure are in the results section. BASIC METABOLIC PANEL Routine 03/01/2018 3:00 Results for this AM CDT procedure are in the results section. PROTHROMBIN TIME WITH INR Routine 02/28/2018 2:35 Results for this PM CDT procedure are [...] are in the results section. US ABDOMINAL PARACENTESIS Routine 02/25/2018 3:45 Results for this IMAGING PM CDT procedure are in the results section. CYTOLOGY Routine 02/25/2018 3:00 Results for this (NON-GYNECOLOGICAL) REQUEST PM CDT procedure are in the results section. ALBUMIN, MISC FLUID Routine 02/25/2018 3:00 Results for this PM CDT procedure are in the results section. CELL COUNT AND Routine 02/25/2018 3:00 Results for this DIFFERENTIAL, BODY FLUID PM CDT procedure are in the results section. GRAM STAIN Routine 02/25/2018 [...] in the results section. LACTIC ACID LEVEL, SEPSIS - Timed 02/25/2018 4:48 Results for this NOW AND REPEAT 2X EVERY 3 AM CDT procedure are in HOURS the results section. LACTIC ACID LEVEL, SEPSIS - Timed 02/25/2018 12:45 Results for this NOW AND REPEAT 2X EVERY 3 AM CDT procedure are in HOURS the results section. CT ABDOMEN PELVIS W STAT 02/24/2018 8:02 Results for this CONTRAST PM CDT procedure are in the results section. URINALYSIS SCREEN AND STAT 02/24/2018 7:49 Results for this MICROSCOPY, WITH REFLEX TO PM CDT procedure are in CULTURE the results section. URINE CULTURE STAT 02/24/2018 7:49 Results for this PM CDT procedure are in the results section. LACTIC ACID LEVEL, SEPSIS - Timed 02/24/2018 7:41 Results for this NOW AND REPEAT 2X EVERY 3 PM CDT procedure are in HOURS the results section. BLOOD CULTURE, AEROBIC & Routine 02/24/2018 7:35 Results for this ANAEROBIC PM CDT procedure are in the results section. INFLUENZA ANTIGEN Routine 02/24/2018 7:35 Results for this PM CDT procedure are in the results section. BLOOD CULTURE, AEROBIC & Routine 02/24/2018 7:20 Results for this ANAEROBIC PM CDT procedure are in the results section. ECG ED PRELIMINARY Routine 02/24/2018 6:03 Results for this INTERPRETATION PM CDT procedure are in the results section. LIPASE LEVEL STAT 02/24/2018 6:01 Results for this PM CDT procedure are in the results section. ESTIMATED GFR STAT 02/24/2018 6:01 Results for this PM CDT procedure are in the results section. PARTIAL THROMBOPLASTIN TIME STAT 02/24/2018 6:01 Results for this (PTT) PM CDT procedure are in the results section. PROTHROMBIN TIME WITH INR STAT 02/24/2018 6:01 Results for this PM [...] are in the results section. US ABDOMINAL PARACENTESIS Routine 02/03/2018 12:11 Results for this IMAGING PM CDT procedure are in the results section. POC GLUCOSE Routine 02/03/2018 5:32 Results for this AM CDT procedure are in the results section. ESTIMATED GFR Routine 02/03/2018 4:20 Results for this AM CDT procedure are in the results section. THYROID STIMULATING HORMONE Routine 02/03/2018 4:20 Results for this AM [...] in the results section. LACTIC ACID LEVEL, SEPSIS - Timed 02/02/2018 12:50 Results for this NOW AND REPEAT 2X EVERY 3 AM CDT procedure are in HOURS the results section. LACTIC ACID LEVEL, SEPSIS - Timed 02/01/2018 9:20 Results for this NOW AND REPEAT 2X EVERY 3 PM CDT procedure are in HOURS the results section. US ABDOMINAL PARACENTESIS STAT 02/01/2018 7:16 Results for this IMAGING PM CDT procedure are in the results section. CELL COUNT AND Routine 02/01/2018 6:55 Results for this DIFFERENTIAL, BODY FLUID PM CDT procedure are in the results section. PROTEIN, MISC FLUID Routine 02/01/2018 6:55 Results for this PM CDT procedure are in the results section. LDH, MISC FLUID Routine 02/01/2018 6:55 Results for this PM CDT procedure are in the results section. GLUCOSE LEVEL, MISC FLUID Routine 02/01/2018 6:55 Results for [...] in the results section. BLOOD CULTURE, AEROBIC & Routine 02/01/2018 6:08 Results for this ANAEROBIC PM CDT procedure are in the results section. LACTIC ACID LEVEL, SEPSIS - Timed 02/01/2018 5:49 Results for this NOW AND REPEAT 2X EVERY 3 PM CDT procedure are in HOURS the results section. AMMONIA LEVEL STAT 02/01/2018 5:49 Results for this PM CDT procedure are in the results section. PROTHROMBIN TIME WITH INR STAT 02/01/2018 5:49 Results for this PM CDT procedure are in the results section. BLOOD CULTURE, AEROBIC & Routine 02/01/2018 5:49 Results for this ANAEROBIC PM CDT procedure are in the results section. CT ABDOMEN PELVIS WO STAT 02/01/2018 5:30 Results for this CONTRAST PM CDT procedure are in the results section. ECG ED PRELIMINARY Routine 02/01/2018 4:36 Results for this INTERPRETATION PM CDT procedure are in the results section. URINALYSIS SCREEN AND STAT 02/01/2018 4:34 Results for this MICROSCOPY, WITH REFLEX TO PM CDT procedure are in CULTURE the results section. URINE CULTURE STAT [...] are in the results section. US ABDOMINAL PARACENTESIS Routine 12/13/2017 2:52 Results for this IMAGING PM CDT procedure are in the results section. CYTOLOGY Routine 12/13/2017 2:15 Results for this (NON-GYNECOLOGICAL) REQUEST PM CDT procedure are in the results section. BODY FLUID CONSULT Routine 12/13/2017 2:15 Results for this PM CDT procedure are in the results section. ALBUMIN, MISC FLUID Routine 12/13/2017 2:15 Results for this PM CDT procedure are in the results section. CELL COUNT AND Routine 12/13/2017 2:15 Results for this DIFFERENTIAL, BODY FLUID PM CDT procedure are in the results section. ANAEROBIC CULTURE Routine 12/13/2017 [...] are in the results section. PARTIAL THROMBOPLASTIN TIME STAT 12/12/2017 11:48 Results for this (PTT) PM CDT procedure are in the results section. PROTHROMBIN TIME WITH INR STAT 12/12/2017 11:48 Results for this PM [...] 11:17 Results for this MICROSCOPY, WITH REFLEX TO PM CDT procedure are in CULTURE the results section. URINE CULTURE STAT 12/12/2017 11:17 Results for this PM CDT procedure are in the results section. ECG 12-LEAD STAT 12/12/2017 11:05 Results for this PM CDT procedure are in the results section. ECG ED PRELIMINARY Routine 12/12/2017 10:46 Results for this INTERPRETATION PM CDT procedure are in the results section. US ABDOMINAL PARACENTESIS Routine 10/28/2017 4:04 Results for this IMAGING PM CDT procedure are in the [...] Routine 10/28/2017 3:30 Results for this (NON-GYNECOLOGICAL) REQUEST PM CDT procedure are in the results section. BODY FLUID CONSULT Routine 10/28/2017 3:30 Results for this PM CDT procedure are in the results section. CELL COUNT AND Routine 10/28/2017 3:30 Results for this DIFFERENTIAL, BODY FLUID PM CDT procedure are in the results section. PREPARE FRESH FROZEN PLASMA Timed 10/28/2017 11:49 Results for this AM [...] 10:38 Results for this MICROSCOPY, WITH REFLEX TO AM CDT procedure are in CULTURE the results section. URINE CULTURE STAT 10/27/2017 10:38 Results for this AM CDT procedure are in the results section. PARTIAL THROMBOPLASTIN TIME STAT 10/27/2017 10:30 Results for this (PTT) AM CDT procedure are in the results section. PROTHROMBIN TIME WITH INR STAT 10/27/2017 10:30 Results for this AM CDT procedure are in the results section. HC COMPLETE BLD COUNT STAT 10/27/2017 10:30 Results for this W/AUTO DIFF AM CDT procedure are in the results section. after 04/29/2017 Results XR Chest Inspiration And Expiration (04/28/2018 9:42 AM [employer])Only the most recent of6 resultswithin the time period is included. Narrative Performed At EXAMINATION:XR CHEST INSPIRATION EXPIRATION [facility] CLINICAL HISTORY:post right thoracentesis COMPARISON:April 25, 2018 IMPRESSION: Marked reduction right pleural effusion status post thoracentesis. Minimal residual costophrenic angle effusion on the right No pneumothorax No infiltrate or congestion Cardiomediastinal silhouette is normal in size Two view chest. [id number] Procedure Note Hm Interface, Radiology Results Incoming - 04/28/2018 10:01 AM [employer] EXAMINATION: XR CHEST INSPIRATION EXPIRATION CLINICAL HISTORY: post right thoracentesis COMPARISON: April 25, 2018 IMPRESSION: Marked reduction right pleural effusion status post thoracentesis. Minimal residual costophrenic angle effusion on the right No pneumothorax No infiltrate or congestion Cardiomediastinal silhouette is normal in size Two view chest. [id number] Performing Organization Address City/State/Zipcode Phone Number [facility] [address] [place] [address] [place] Thoracentesis With Imaging (04/28/2018 9:36 AM [employer])Only the most recent of11 resultswithin the time period is included. Narrative Performed At Procedure RADIANT US THORACENTESIS WITH IMAGING Clinical Indication Pleural effusion Anesthesia Lidocaine 1%. Sedation None. Technique Written informed consent was obtained prior to the procedure. This study was performed after a formal timeout procedure. The patient was placed in an upright position and ultrasound imaging over the right posterior chest was then performed demonstrating a large right pleural effusion. The right posterior chest was sterilely prepared and draped in the routine manner. Lidocaine 1% was used for local anesthetic. Using real-time ultrasound guidance, a 5-Kazakh Yueh catheter was advanced successfully into the right pleural space with return of dark straw-colored pleural fluid.3200 mL of fluid was removed. The Yueh catheter was removed and hemostasis was achieved with manual compression. Ultrasound imaging over the right posterior chest following completion of the thoracentesis demonstrated a small/moderate residual right pleural effusion. The patient tolerated the procedure well. Complications None. Impression: Successful ultrasound-guided right thoracentesis with removal of 3200 mL of marked straw-colored right-sided pleural fluid. 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 Sedation None. Technique Written informed consent was obtained prior to the procedure. This study was performed after a formal timeout procedure. The patient was placed in an upright position and ultrasound imaging over the right posterior chest was then performed demonstrating a large right pleural effusion. The right posterior chest was sterilely prepared and draped in the routine manner. Lidocaine 1% was used for local anesthetic. Using real-time ultrasound guidance , a 5-Kazakh Yueh catheter was advanced successfully into the right pleural space with return of dark straw-colored pleural fluid. 3200 mL of fluid was removed. The Yueh catheter was removed and hemostasis was achieved with manual compression. Ultrasound imaging over the right posterior chest following completion of the thoracentesis demonstrated a small/moderate residual right pleural effusion. The patient tolerated the procedure well. Complications None. Impression: Successful ultrasound-guided right thoracentesis with removal of 3200 mL of marked straw-colored right-sided pleural fluid. [id number] Performing Organization Address City/State/Zipcode Phone Number [facility] [address] [place] [address] Gram stain (04/28/2018 9:29 AM HEATING UNIT MECHANIC)Only the most recent of11 resultswithin the time period is included. Gram stain isolate Rare WBC's [facility] No organisms seen Comment: Specimen Information Specimen Source: Thoracentesis fluid Specimen Site: Thoracentesis fluid Specimen Thoracentesis fluid - Thoracentesis fluid Performing Organization Address City/[facility]/Zipcode Phone Number [facility] DEPARTMENT OF PATHOLOGY AND [address] [place] [address] [facility] [address] [place] [address] Prothrombin time with INR (04/28/2018 5:23 AM HEATING UNIT MECHANIC)Only the most recent of22 resultswithin the time period is included. Prothrombin time 24.2 (H) 11.5 - 14.5 sec [facility] INR 2.2 [facility] Comment: [facility] The International Normalized Ratio (INR) is a therapeutic monitoring tool for patients who are stable on oral anticoagulant therapy. An INR of 2.0-3.0 is suggested for deep vein thrombosis/pulmonary embolism. Specimen Blood Performing Organization Address [facility] Phone Number [facility] DEPARTMENT OF PATHOLOGY AND [address] [address] [place] [address] CBC with platelet and differential (04/28/2018 5:23 AM HEATING UNIT MECHANIC)Only the most recent of32 resultswithin the time period is included. WBC 8.96 4.50 - 11.00 k/uL [facility] RBC 2.40 (L) 4.40 - 6.00 m/uL [facility] HGB 8.1 (L) 14.0 - 18.0 g/dL [facility] HCT 22.9 (L) 41.0 - 51.0 % [facility] MCV 95.4 82.0 - 100.0 fL [facility] MCH 33.8 27.0 - 34.0 pg [facility] MCHC 35.4 31.0 - 37.0 g/dL [facility] RDW - SD 58.1 (H) 37.0 - 55.0 fL [facility] MPV 11.4 8.8 - 13.2 fL [facility] Platelet count 80 (L) 150 - 400 k/uL [facility] Nucleated RBC 0.00 /100 WBC [facility] Neutrophils 74.3 (H) 39.0 - 69.0 % [facility] Lymphocytes 11.6 (L) 25.0 - 45.0 % [facility] Monocytes 10.9 (H) 0.0 - 10.0 % [facility] Eosinophils 1.7 0.0 - 5.0 % [facility] Basophils 0.4 0.0 - 1.0 % [facility] Specimen Blood Performing Organization Address [facility] Phone Number [facility] DEPARTMENT PATHOLOGY AND [address] [place] [address] Estimated GFR (04/27/2018 4:30 AM HEATING UNIT MECHANIC)Only the most recent of30 resultswithin the time period is included. Estimated GFR >=90 mL/min/1.73 m2 [facility]: [facility] CatergoryUnitsInterpretation G1 >=90 Normal or high G2 60-89Mildly decreased [id number] to moderately decreased A2n63-30Kclrryvkym to severely decreased G4 15-29Severely decreased G5 <15Kidney failure The eGFR was calculated using the Chronic Kidney Disease Epidemiology Collaboration (CKD-EPI) equation. Interpretation is based on recommendations of the National Kidney Foundation-Kidney Disease Outcomes Quality Initiative (NKF-KDOQI) published in 2014. Specimen Plasma specimen Performing Organization Address [facility] Phone Number [facility] DEPARTMENT OF PATHOLOGY AND [address] [place] [address] Basic metabolic panel (04/27/2018 4:30 AM HEATING UNIT MECHANIC)Only the most recent of15 resultswithin the time period is included. Sodium 136 135 - 148 mEq/L [facility] Potassium 4.6 3.5 - 5.0 mEq/L [facility] Chloride 104 98 - 112 mEq/L [facility] CO2 22 (L) 24 - 31 mEq/L [facility] Anion gap 10@ANIO 7 - 15 mEq/L [facility] BUN 8 8 - 23 mg/dL [facility] Creatinine 0.80 0.70 - 1.20 mg/dL [facility] Glucose 124 (H) 65 - 99 mg/dL [facility] Calcium 9.1 8.8 - 10.2 mg/dL [facility] Specimen Plasma specimen Performing Organization Address [facility] Phone Number [facility] DEPARTMENT OF PATHOLOGY AND [address] [place] [address] Partial thromboplastin time, activated (04/25/2018 2:20 PM HEATING UNIT MECHANIC)Only the most recent of7 resultswithin the time period is included. PTT 45.3 (H) 23.0 - 36.0 sec [facility] Comment: HOSPITAL PTT therapeutic range for unfractionated heparin is 61.0-112.0 seconds which corresponds to Anti-Xa 0.3-0.7 U/ml. Specimen Blood Performing Organization Address [facility] Phone Number [facility] DEPARTMENT OF PATHOLOGY AND [address] [place] [address] [place] [address] HOSPITAL Type and screen (04/25/2018 2:20 PM HEATING UNIT MECHANIC)Only the most recent of7 resultswithin the time period is included. ABO grouping A [facility] Rh type NEG [facility] Antibody screen NEG [facility] Specimen Blood Performing Organization Address [facility] Phone Number [facility] DEPARTMENT OF PATHOLOGY AND [address] [place] [address] Comprehensive metabolic panel (04/25/2018 2:20 PM HEATING UNIT MECHANIC)Only the most recent of18 resultswithin the time period is included. Sodium 132 (L) 135 - 148 mEq/L [facility] Potassium 5.0 3.5 - 5.0 mEq/L [facility] Chloride 99 98 - 112 mEq/L [facility] CO2 17 (L) 24 - 31 mEq/L [facility] Anion gap 16@ANIO (H) 7 - 15 mEq/L [facility] BUN 12 8 - 23 mg/dL [facility] Creatinine 0.70 0.70 - 1.20 mg/dL [facility] Glucose 186 (H) 65 - 99 mg/dL [facility] Calcium 9.5 8.8 - 10.2 mg/dL [facility] Protein 7.2 6.3 - 8.3 g/dL [facility] Comment: [facility] [place] 4.6-7.0 g/dL 1 week 4.4-7.6 g/dL 7 months-1year5.1-7.3 g/dL 1-2 years5.6-7.5 g/dL >3 years6.0-8.0 g/dL 18-150 6.3-8.3 g/dL Albumin 4.3 3.5 - 5.0 g/dL [facility] A/G ratio 1.5 0.7 - 3.8 [facility] Alkaline phosphatase 98 40 - 129 U/L [facility] AST 53 (H) 10 - 50 U/L [facility] ALT 31 5 - 50 U/L [facility] Total bilirubin 3.8 (H) 0.0 - 1.2 mg/dL [facility] Specimen Plasma specimen Performing Organization Address City/State/Zipcode Phone Number [facility] DEPARTMENT OF PATHOLOGY AND [address] [place] [address] GENOMIC MEDICINE [facility] [address] XR Chest 1 Vw Portable (04/25/2018 2:02 PM HEATING UNIT MECHANIC)Only the most recent of8 resultswithin the time period is included. Narrative Performed At EXAMINATION:XR CHEST 1 VW PORTABLE [facility] CLINICAL HISTORY:pleural effusiondyspnea COMPARISON:Single view chest from 04/20/2018 and 2 view chest from 04/20/2018 IMPRESSION: An AP radiograph of the chest was submitted for interpretation. Again noted is complete opacification of the right hemithorax likely secondary to a large pleural effusion which was seen prior to thoracentesis on previous chest x-ray from 04/20/2018. There is no evidence of midline shift. Mild pulmonary edema is seen within the left lung. No left-sided focal consolidation or pleural effusion. No pneumothorax. The mediastinal contours and cardiac silhouette are unchanged. The bones are unremarkable. [id number] Procedure Note [facility], Radiology Results Incoming - 04/25/2018 2:07 PM HEATING UNIT MECHANIC EXAMINATION: XR CHEST 1 VW PORTABLE CLINICAL HISTORY: pleural effusion dyspnea COMPARISON: Single view chest from 04/20/2018 and 2 view chest from 04/20/2018 IMPRESSION: An AP radiograph of the chest was submitted for interpretation. Again noted is complete opacification of the right hemithorax likely secondary to a large pleural effusion which was seen prior to thoracentesis on previous chest x-ray from 04/20/2018. There is no evidence of midline shift. Mild pulmonary edema is seen within the left lung. No left-sided focal consolidation or pleural effusion. No pneumothorax. The mediastinal contours and cardiac silhouette are unchanged. The bones are unremarkable. [id number] Performing Organization Address City/State/Zipcode Phone Number [facility] [address] [place] [address] ECG ED Preliminary Interpretation - Not an Order (04/25/2018 1:42 PM HEATING UNIT MECHANIC)Only the most recent of6 resultswithin the time period is included. Narrative Performed At João Fowler DO 04/25/20184:20 PM ECG ED Preliminary Interpretation - Not an Order Performed by: João Fowler DO Authorized by: João Fowler DO ECG reviewed by ED Physician in the absence of a equipment technician: yes (read at 1339) Interpretation: Interpretation: normal Rate: ECG rate:79 ECG rate assessment: normal Rhythm: Rhythm: sinus rhythm Ectopy: Ectopy: none QRS: QRS axis:Normal QRS intervals:Normal Conduction: Conduction: normal ST segments: ST segments:Normal T waves: T waves: normal ECG 12 lead (04/25/2018 1:39 PM HEATING UNIT MECHANIC)Only the most recent of7 resultswithin the time period is included. Ventricular rate 79 [facility] Atrial rate 468 [facility] MUSE QRSD interval 80 [facility] QT interval 412 [facility] QTC interval 472 [facility] QRS axis 1 -2 [facility] T wave axis 223 [facility] MUSE EKG impression Atrial fibrillation-Poor data quality-ST & T wave abnormality, consider inferior ischemia or digitalis effect-ST & T wave abnormality, consider anterolateral ischemia or digitalis effect-Prolonged QT-Abnormal ECG- In automated comparison with ECG of [facility] MUSE 25-APR-2018 13:38,-Previous ECG has undetermined rhythm, needs review- Questionable change in QRS duration-Criteria for Anterolateral infarct are no longer present-Criteria for Inferior infarct are no longer present- Narrative Performed At Performing Organization Address City/State/Zipcode Phone Number [facility] MUSE [address] [place] [address] XR Chest 1 Vw (04/20/2018 6:13 PM HEATING UNIT MECHANIC)Only the most recent of5 resultswithin the time period is included. Narrative Performed At EXAMINATION:XR CHEST 1 VW RADIANT CLINICAL HISTORY:Pleural effusion, s p R thoracentesisr o ptx COMPARISON:8 hours earlier IMPRESSION: 1.Substantial interval decrease in volume of right pleural effusion status post right thoracentesis. There is a small residual right basal effusion. There is some residual atelectasis in the right lower lobe, but substantial interval reexpansion of the middle and upper lobes. 2.There is no pneumothorax. 3.The left lung and pleural space are clear. 4.The heart size is normal. 5.No acute skeletal finding is seen. [facility]-[id number] Procedure Note Interface, Radiology Results Incoming - 04/20/2018 6:18 PM HEATING UNIT MECHANIC EXAMINATION: XR CHEST 1 VW CLINICAL HISTORY: Pleural effusion, s p R thoracentesis r o ptx COMPARISON: 8 hours earlier IMPRESSION: 1. Substantial interval decrease in volume of right pleural effusion status post right thoracentesis. There is a small residual right basal effusion. There is some residual atelectasis in the right lower lobe, but substantial interval reexpansion of the middle and upper lobes. 2. There is no pneumothorax. 3. The left lung and pleural space are clear. 4. The heart size is normal. 5. No acute skeletal finding is seen. [facility]-[id number] Performing Organization Address [facility] Phone Number [facility] [address] [place] [address] XR Chest 2 Vw (04/20/2018 10:27 AM HEATING UNIT MECHANIC)Only the most recent of3 resultswithin the time period is included. Narrative Performed At EXAMINATION:XR CHEST 2 VW RADIBANNER CLINICAL HISTORY:assess for re-accumulation of pleural effusion COMPARISON:April 18, 2018 chest IMPRESSION: Marked reaccumulation of right pleural effusion Small amount of aerated right upper lobe Left lung remains clear No pneumothorax Single view chest. [facility]-[id number] Procedure Note [facility], Radiology Results Incoming - 04/20/2018 10:42 AM HEATING UNIT MECHANIC EXAMINATION: XR CHEST 2 VW CLINICAL HISTORY: assess for re-accumulation of pleural effusion COMPARISON: April 18, 2018 chest IMPRESSION: Marked reaccumulation of right pleural effusion Small amount of aerated right upper lobe Left lung remains clear No pneumothorax Single view chest. [facility]-[id number] Performing Organization Address [facility] Phone Number [facility] [address] [place] [address] MRI Abdomen W Wo Contrast (04/19/2018 4:22 PM HEATING UNIT MECHANIC) Narrative Performed At EXAMINATION:MRI ABDOMEN W WO CONTRAST RADIANT CLINICAL HISTORY: 63 years Maleliver mass protocol TECHNIQUE: Multiplanar multisequence MR images of the abdomen were obtained pre - and post dynamic intravenous administration of Gadolinium. Images are partially degraded secondary to respiratory motion. COMPARISON:CT abdomen and pelvis dated 04/15/2018 IMPRESSION: 1.The liver is cirrhotic. There are tiny signal abnormalities in the liver that are too small to definitively characterize. No hypervascular foci are identified. There are no significant T2 or diffusion signal abnormalities. 2.The main and intrahepatic portal veins are patent. There our large gastroesophageal varices and there are small splenic varices with a small splenorenal shunt. The right hepatic artery is replaced to the SMA. 3.The spleen is enlarged and measures 16.3 cm in length. 4.The pancreas, and gallbladder and biliary tree, adrenal glands, and the kidneys are normal. 5.The abdominal aorta is normal in caliber. There is no evidence of retroperitoneal mass or adenopathy. 6.There is extensive volume loss at the right lung base with a large right pleural effusion. Minimal volume loss is present at the left lung base with a tiny left pleural effusion. 7.Moderate ascites. SUMMARY: 1.Cirrhosis with portal hypertension, splenomegaly, and large gastroesophageal varices. 2.Tiny hepatic signal abnormalities are too small to characterize, likely benign. Attention at follow-up. 3.Extensive right basilar volume loss. Large right pleural effusion. Minimal left basilar volume loss. Tiny left pleural effusion. 4.Ascites. Procedure Note Hm Interface, Radiology Results Incoming - 04/19/2018 5:44 PM HEATING UNIT MECHANIC EXAMINATION: MRI ABDOMEN W WO CONTRAST CLINICAL HISTORY: 63 years Male liver mass protocol TECHNIQUE: Multiplanar multisequence MR images of the abdomen were obtained pre - and post dynamic intravenous administration of Gadolinium. Images are partially degraded secondary to respiratory motion. COMPARISON: CT abdomen and pelvis dated 04/15/2018 IMPRESSION: 1. The liver is cirrhotic. There are tiny signal abnormalities in the liver that are too small to definitively characterize. No hypervascular foci are identified. There are no significant T2 or diffusion signal abnormalities. 2. The main and intrahepatic portal veins are patent. There our large gastroesophageal varices and there are small splenic varices with a small splenorenal shunt. The right hepatic artery is replaced to the SMA. 3. The spleen is enlarged and measures 16.3 cm in length. 4. The pancreas, and gallbladder and biliary tree, adrenal glands, and the kidneys are normal. 5. The abdominal aorta is normal in caliber. There is no evidence of retroperitoneal mass or adenopathy. 6. There is extensive volume loss at the right lung base with a large right pleural effusion. Minimal volume loss is present at the left lung base with a tiny left pleural effusion. 7. Moderate ascites. SUMMARY: 1. Cirrhosis with portal hypertension, splenomegaly, and large gastroesophageal varices. 2. Tiny hepatic signal abnormalities are too small to characterize, likely benign. Attention at follow-up. 3. Extensive right basilar volume loss. Large right pleural effusion. Minimal left basilar volume loss. Tiny left pleural effusion. 4. Ascites. Performing Organization Address City/State/Zipcode Phone Number [facility] [address] [place] [phone] Potassium level (04/18/2018 5:46 PM HEATING UNIT MECHANIC)Only the most recent of4 resultswithin the time period is included. Potassium 3.6 3.5 - 5.0 mEq/L [facility] Specimen Plasma specimen Performing Organization Address City/[facility]/Zipcode Phone Number [facility] DEPARTMENT OF PATHOLOGY AND [address] [place] [phone] LDH (04/18/2018 5:46 PM HEATING UNIT MECHANIC)Only the most recent of4 resultswithin the time period is included. LDH 208 87 - 225 U/L [facility] Specimen Plasma specimen Narrative Performed At [facility] DEPARTMENT OF PATHOLOGY AND GENOMIC MEDICINE Performing Organization Address [facility] Phone Number [facility] DEPARTMENT OF PATHOLOGY AND [address] [place] [id number] [place] [phone] Flow cytometry evaluation (04/18/2018 1:12 PM HEATING UNIT MECHANIC) [facility] Flow cytometry evaluation See link below for PDF [facility] Lab Report Performing Organization Address [facility] Phone Number [facility] DEPARTMENT OF PATHOLOGY AND [address] [place] [address] Aerobic culture (04/18/2018 1:12 PM HEATING UNIT MECHANIC)Only the most recent of9 resultswithin the time period is included. Aerobic culture isolate No growth after 3 days. [facility] Comment: HOSPITAL Specimen Information Specimen Source: Thoracentesis fluid Specimen Site: Pleural Fluid Specimen Thoracentesis fluid - Pleural Fluid Performing Organization Address City/[facility]/Zipcode Phone Number [facility] DEPARTMENT OF PATHOLOGY AND [address] [place] [phone] Anaerobic culture (04/18/2018 1:12 PM HEATING UNIT MECHANIC)Only the most recent of9 resultswithin the time period is included. Anaerobic culture No anaerobic organisms isolated. [facility] isolate Comment: HOSPITAL Specimen Information Specimen Source: Thoracentesis fluid Specimen Site: Pleural Fluid Specimen Thoracentesis fluid - Pleural Fluid Performing Organization Address City/[facility] Phone Number [facility] DEPARTMENT OF PATHOLOGY AND [address] [place] [address] Cell count and differential, body fluid (04/18/2018 1:12 PM HEATING UNIT MECHANIC)Only the most recent of9 resultswithin the time period is included. [facility] fluid type Pleural [facility] Color, fluid Yellow [facility] Appearance, fluid Clear [facility] RBC, fluid SEE COMMENTComment: 2+ /CMM [facility] (500 - 10,000 RBC/CMM) Nucleated cells, fluid 335 /CMM [facility] Fluid mononuclear cell See Diff [facility] Neutrophils, fluid 36 % [facility] Lymphocytes, fluid 17 % [facility] Mesothelial cells, fluid 1 % [facility] Macrophages, fluid 46 % [facility] Specimen Fluid Performing Organization Address City/[facility] Phone Number [facility] DEPARTMENT OF PATHOLOGY AND [address] [place] [address] Protein, misc fluid (04/18/2018 1:12 PM HEATING UNIT MECHANIC)Only the most recent of4 resultswithin the time period is included. Fluid type Pleural [facility] Protein, fluid 1.1 g/dL [facility] Comment: Analysis performed on Azalea 8000 analyzer. This is not an approved methodology for this specimen type;accuracy and clinical significance uncertain. Specimen Fluid Performing Organization Address City/[facility] Phone Number [facility] DEPARTMENT OF PATHOLOGY AND [address] [place] [address] [id number] LDH, misc fluid (04/18/2018 1:12 PM HEATING UNIT MECHANIC)Only the most recent of4 resultswithin the time period is included. Fluid type Pleural [facility] LDH, fluid 53 U/L [facility] Comment: Analysis performed on Azalea 8000 analyzer. This is not an approved methodology for this specimen type;accuracy and clinical significance uncertain. Specimen Fluid Performing Organization Address City/[facility] Cent[facility]ode Phone Number [facility] DEPARTMENT OF PATHOLOGY AND [address] [place] [address] [facility] [address] [place] [address] Glucose level, misc fluid (04/18/2018 1:12 PM HEATING UNIT MECHANIC)Only the most recent of4 resultswithin the time period is included. Fluid type Pleural [facility] Glucose, fluid 116 mg/dL [facility] Comment: Analysis performed on Azalea 8000 analyzer. This is not an approved methodology for this specimen type;accuracy and clinical significance uncertain. Specimen Fluid Performing Organization Address City/State/Zipcode Phone Number [facility] DEPARTMENT OF PATHOLOGY AND [address] [place] [address] [facility] [address] [place] [address] Albumin, misc fluid (04/18/2018 1:12 PM HEATING UNIT MECHANIC)Only the most recent of5 resultswithin the time period is included. Fluid type Pleural [facility] Albumin, fluid 0.8 g/dL [facility] Comment: Analysis performed on Azalea 8000 analyzer. This is not an approved methodology for this specimen type;accuracy and clinical significance uncertain. Specimen Fluid Performing Organization Address City/State/[facility] Centercode Phone Number [facility] DEPARTMENT OF PATHOLOGY AND [address] [place] [address] [facility] [address] [place] [address] Cortisol, 60 minutes (04/16/2018 7:50 AM HEATING UNIT MECHANIC) Cortisol, 60 Min 22 ug/dL [facility] Comment: Normal response to 0.25 mg 1-24 ACTH (cosyntropin) is a peak cortisol concentration of greater than 14 ug/dL at either 30 minutes or 60 minutes post-stimulation. Specimen Plasma specimen Performing Organization Address City/State/Zipcode Phone Number [facility] DEPARTMENT OF PATHOLOGY AND [address] [place] [address] [facility] [address] [place] [address] Cortisol, 30 minutes (04/16/2018 7:22 AM HEATING UNIT MECHANIC) Cortisol, 30 min 15 ug/dL [facility] Comment: Normal response to 0.25 mg 1-24 ACTH (cosyntropin) is a peak cortisol concentration of greater than 14 ug/dL at either 30 minutes or 60 minutes post-stimulation. Specimen Plasma specimen Performing Organization Address City/[facility] Centercode Phone Number [facility] DEPARTMENT OF PATHOLOGY AND [address] [place] [phone] [place] [phone] Total iron binding capacity (04/16/2018 5:55 AM HEATING UNIT MECHANIC) Iron level 33 (L) 59 - 158 ug/dL [facility] Iron binding capacity 130 (L) 200 - 400 ug/dL [facility] % Saturation 25.4 20.0 - 40.0 % [facility] Specimen Plasma specimen Performing Organization Address City/[facility] Centercomd Phone Number [facility] DEPARTMENT OF PATHOLOGY AND [address] [place] [phone] Alpha fetoprotein (04/16/2018 5:55 AM HEATING UNIT MECHANIC) Alpha fetoprotein 1.2 0.0 - 8.3 ng/mL [facility] Comment: HOSPITAL The Azalea 8000 AFP immunoassay was used. Results obtained with different assay methods or kits should not be used interchangeably and may be different. Specimen Serum Performing Organization Address [facility] Phone Number [facility] DEPARTMENT OF PATHOLOGY AND [address] [place] [phone] [place] [address] Adrenocorticotropic hormone (04/16/2018 5:55 AM HEATING UNIT MECHANIC) Adrenocorticotropic hormone 7.8 7.2 - 63.3 pg/mL [facility] Specimen Blood Performing Organization Address City/[facility] Centercode Phone Number [facility] DEPARTMENT OF PATHOLOGY AND [address] [place] [phone] Reticulocyte count (04/16/2018 5:55 AM HEATING UNIT MECHANIC) Retic %, auto 4.4 (H) 0.5 - 2.1 % [facility] Retic absolute, auto 0.1195 0.0220 - 0.1260 m/uL [facility] Specimen Blood Performing Organization Address City/[facility] Centercode Phone Number [facility] DEPARTMENT OF PATHOLOGY AND [address] [place] [phone] [address] Haptoglobin (04/16/2018 5:55 AM HEATING UNIT MECHANIC) Haptoglobin 25 (L) 30 - 200 mg/dL [facility] Specimen Plasma specimen Performing Organization Address [facility] Phone Number [facility] DEPARTMENT OF PATHOLOGY AND [address] [place] [address] Ferritin level (04/16/2018 5:55 AM HEATING UNIT MECHANIC) Ferritin level 336 30 - 400 ng/mL [facility] Specimen Plasma specimen Performing Organization Address [facility] Centercomd Phone Number [facility] DEPARTMENT OF PATHOLOGY AND [address] [place] [address] Cortisol level, random (04/16/2018 5:55 AM HEATING UNIT MECHANIC)Only the most recent of2 resultswithin the time period is included. Cortisol, random 7 ug/dL [facility] Comment: Reference Ranges are not established for non-timed Cortisol levels. Reference Range for Timed Cortisol: 6 - 10 AM 6 - 18 ug/dl 4 - 8PM 3 - 11 ug/dl Specimen Plasma specimen Performing Organization Address [facility] Phone Number [facility] DEPARTMENT OF PATHOLOGY AND [address] [place] [address] Echocardiogram complete w contrast and 3D if needed (04/15/2018 7:03 PM HEATING UNIT MECHANIC) Narrative Performed At [facility] Echocardiography Report [address] [place] [address] 9, [place] [address] Pat.Name:Toño MOULTON.ID:[id number] .Date: 04/15/2018 Refer.MD:JORDAN ADLER MD Exam Time: 6:14:00 PMStudy Type:Routine Echo Height:65inWeight: 133lb BSA: 1.66 m2 DOBAge:1955,63Y Sex: MALEBP:88/50 HR:80 bpmSonogrphr: MARICHUY Howard Pat. Stat.:Inpatient Room:[facility] Study Status:Final Echo Event ID:[id number] Order ID:[id number] Reason for Study:Suspected HF, EKG with low voltage Procedures:2D Echo, Colorflow Doppler, Portable Race:C SUMMARY: LV EF is normal.Overall wall motion is normal. FINDINGS: LV: LV size is normal. LV EF is normal. Estimated EF is 60-64%. Overallwall motion is normal. RV: RV size is moderately enlarged. RV systolic function is lowerlimits of normal. LA: LA size is normal. RA: RA size is normal. AO: Aortic root diameter is normal. FIDE: No pericardial effusion. PLE:Pleural effusion is present. AV: No structural AV abnormalities noted. MV: No structural MV abnormalities noted. Mild mitral regurgitation. PV: Pulmonic valve not well seen. TV: No structural TV abnormalities noted. A trace of tricuspid regurgitation Napoles: LV relaxation is reduced, appropriate for age. LV filling pressureis normal. Other:Estimated PA systolic pressure is 29 mmHg, assuming a mean RAPof 5 mmHg. MEASUREMENTS: 2D Parasternal Long Wallace LVOT 2 cmLA Ds3.6 cm LVIDd4.4 cmIndex2.7 cm/m Ao An2.1 cm LVIDs2.3 cmAo Rtd 2.9 cm Index1.7 cm/m LV%fs 48.4 % LV Bcir284 g(122-174) IVSd 0.8 cmLVM Index 71.1 g/m2 LVPWd0.8 cmRWT0.4 LA Sng Plane LA Area 15.1 cm2(8.8-23.4) LA Vol37.4 ml Index22.6 ml/m LA LngAx 4.7 cm RA Sng Plane RA Area 17.4 cm2(8.3-19.5) RA Vol53.7 ml Index32.3 ml/m RA LngAx 4.8 cm DOPPLER LVOT Stroke Vol LVOT 2 cmLVOT CO5.7 l/min LVOT TVI21.2 cmLVOT CI3.4 l/m/m2 LVOT Tm299 sdqpXM80 bpm LVOT SV 66.5 ml Signed 04/16/2018 03:24 PM Terence Kirkland M.D. Procedure Note Interface, Radiology Results In - 04/16/2018 3:24 PM HEATING UNIT MECHANIC Echocardiography Report [address] [place] [address] Pat.Name: NICO MOULTON.ID: [id number] St.Date: 04/15/2018 Refer.MD: JORDAN ADLER MD Exam Time: 6:14:00 PM Study Type:Routine Echo Height: 65in Weight: 133lb BSA: 1.66 m2 Age: 12 1955,63Y Sex: MALE BP: 88/50 HR: 80 bpm Sonogrphr: MARICHUY Howard Pat. Stat.:Inpatient Room: [facility] Study Status:Final Echo Event ID:[id number] Order ID: [id number] Reason for Study:Suspected HF, EKG with low voltage Procedures:2D Echo, Colorflow Doppler, Portable Race: C SUMMARY: LV EF is normal. Overall wall motion is normal. FINDINGS: LV: LV size is normal. LV EF is normal. Estimated EF is 60-64%. Overall wall motion is normal. RV: RV size is moderately enlarged. RV systolic function is lower limits of normal. LA: LA size is normal. RA: RA size is normal. AO: Aortic root diameter is normal. FIDE: No pericardial effusion. PLE: Pleural effusion is present. AV: No structural AV abnormalities noted. MV: No structural MV abnormalities noted. Mild mitral regurgitation. PV: Pulmonic valve not well seen. TV: No structural TV abnormalities noted. A trace of tricuspid regurgitation Napoles: LV relaxation is reduced, appropriate for age. LV filling pressure is normal. Other: Estimated PA systolic pressure is 29 mmHg, assuming a mean RAP of 5 mmHg. MEASUREMENTS: 2D Parasternal Long Wallace LVOT 2 cm LA Ds 3.6 cm LVIDd 4.4 cm Index 2.7 cm/m Ao An 2.1 cm LVIDs 2.3 cm Ao Rtd 2.9 cm Index 1.7 cm/m LV%fs 48.4 % LV Mass 118 g (122-174) IVSd 0.8 cm LVM Index 71.1 g/m2 LVPWd 0.8 cm RWT 0.4 LA Sng Plane LA Area 15.1 cm2 (8.8-23.4) LA Vol 37.4 ml Index 22.6 ml/m LA LngAx 4.7 cm RA Sng Plane RA Area 17.4 cm2 (8.3-19.5) RA Vol 53.7 ml Index 32.3 ml/m RA LngAx 4.8 cm DOPPLER LVOT Stroke Vol LVOT 2 cm LVOT CO 5.7 l/min LVOT TVI 21.2 cm LVOT CI 3.4 l/m/m2 LVOT Tm 299 msec HR 86 bpm LVOT SV 66.5 ml Signed 04/16/2018 03:24 PM Terence Kirkland M.D. Performing Organization Address City/State/Zipcode Phone Number [facility] [address] [place] [address] Lactic acid level (04/15/2018 4:24 PM HEATING UNIT MECHANIC)Only the most recent of3 resultswithin the time period is included. Lactic acid 2.9 (H) 0.5 - 2.2 mmol/L [facility] Specimen Blood Performing Organization Address City/State/Zipcode Phone Number [facility] DEPARTMENT OF PATHOLOGY AND [address] [place] [address] GENOMIC MEDICINE [facility] [address] [place] [address] CT Abdomen Pelvis Wo Contrast (04/15/2018 3:42 PM HEATING UNIT MECHANIC)Only the most recent of2 resultswithin the time period is included. Narrative Performed At EXAMINATION:CT ABDOMEN PELVIS WO CONTRAST RADIANT CLINICAL HISTORY:Abd distension, Abd painunspecified, Bowel obstruction TECHNIQUE: Noncontrast images of the abdomen and pelvis were obtained without intravenous iodinated contrast. The lack of intravenous contrast limits assessment of the solid organs. CT imaging was performed with iterative reconstruction technique and/or automated exposure control to reduce radiation dose. COMPARISON: CT abdomen and pelvis dated 02/24/2018 FINDINGS: ABDOMEN: Examination for solid organ and vascular disease is significantly limited in the absence of contrast. No free air is seen in the abdomen. 1. Liver: Cirrhosis. Hypodense lesion in segment 8 of the liver on series 2, image 52 measuring up to 6 mm. 2. Gallbladder: Gallbladder is grossly unremarkable. 3. Spleen: Splenomegaly consistent with portal hypertension. 4. Pancreas: No focal abnormality can be seen in the pancreas. 5. Adrenal Glands: The adrenal glands are unremarkable. 6. Kidneys: The kidneys are grossly unremarkable. There is no visible solid mass, stone, or hydronephrosis. 7. Abdominal Aorta: The abdominal aorta is normal in caliber with atherosclerotic disease present. 8. Nodes: There is seizure present in the gastrohepatic ligament and within the splenic hilum. Gastroesophageal varices are noted. Stable prominent upper abdominal and periportal lymph nodes, probably secondary to underlying cirrhosis. No definite suspicious retroperitoneal adenopathy. 9. Bowel: Moderate amount of stool in the colon. No definite evidence of a colonic obstruction. There are no findings to suggest a mechanical small bowel obstruction. There are a few prominent air and fluid-filled loops of small bowel. Mild wall thickening of the small bowel may reflect the presence of ascites or underlying enteritis. Contrast extends to the level of the ileum. The appendix is not seen. 10. Ascites: Small to moderate volume ascites. No definite suspicious peritoneal or omental nodularity. PELVIS: 1.Pelvis: Ascites in the pelvis. Bladder unremarkable. Prostate unremarkable. No definite pelvic adenopathy. Few prominent inguinal lymph nodes, likely reactive. 2. Bones: Degenerative changes of the osseous structures. No suspicious lesions. 3. Lung Bases: Moderate to large right pleural effusion. Groundglass infiltrates in the right lung with right basilar consolidation consistent with pneumonia. Small left pleural effusion with passive atelectasis. IMPRESSION: 1. No evidence for mechanical small bowel obstruction. 2. Cirrhosis with portal hypertension, ascites, and a large right and small left pleural effusion. Hypodense lesion in segment 8 of liver. Liver protocol MRI with contrast recommended. 3. Infiltrates in the right lower and right middle lobe likely reflect a combination of edema and pneumonia. 4. Thickening of multiple loops of small bowel may be secondary to ascites or enteritis. 5. Additional findings and details as above. [facility]-[id number] Procedure Note [facility], Radiology Results Incoming - 04/15/2018 4:00 PM HEATING UNIT MECHANIC EXAMINATION: CT ABDOMEN PELVIS WO CONTRAST CLINICAL HISTORY: Abd distension, Abd pain unspecified, Bowel obstruction TECHNIQUE: Noncontrast images of the abdomen and pelvis were obtained without intravenous iodinated contrast. The lack of intravenous contrast limits assessment of the solid organs. CT imaging was performed with iterative reconstruction technique and/or automated exposure control to reduce radiation dose. COMPARISON: CT abdomen and pelvis dated 02/24/2018 FINDINGS: ABDOMEN: Examination for solid organ and vascular disease is significantly limited in the absence of contrast. No free air is seen in the abdomen. 1. Liver: Cirrhosis. Hypodense lesion in segment 8 of the liver on series 2, image 52 measuring up to 6 mm. 2. Gallbladder: Gallbladder is grossly unremarkable. 3. Spleen: Splenomegaly consistent with portal hypertension. 4. Pancreas: No focal abnormality can be seen in the pancreas. 5. Adrenal Glands: The adrenal glands are unremarkable. 6. Kidneys: The kidneys are grossly unremarkable. There is no visible solid mass, stone, or hydronephrosis. 7. Abdominal Aorta: The abdominal aorta is normal in caliber with atherosclerotic disease present. 8. Nodes: There is seizure present in the gastrohepatic ligament and within the splenic hilum. Gastroesophageal varices are noted. Stable prominent upper abdominal and periportal lymph nodes, probably secondary to underlying cirrhosis. No definite suspicious retroperitoneal adenopathy. 9. Bowel: Moderate amount of stool in the colon. No definite evidence of a colonic obstruction. There are no findings to suggest a mechanical small bowel obstruction. There are a few prominent air and fluid-filled loops of small bowel. Mild wall thickening of the small bowel may reflect the presence of ascites or underlying enteritis. Contrast extends to the level of the ileum. The appendix is not seen. 10. Ascites: Small to moderate volume ascites. No definite suspicious peritoneal or omental nodularity. PELVIS: 1. Pelvis: Ascites in the pelvis. Bladder unremarkable. Prostate unremarkable. No definite pelvic adenopathy. Few prominent inguinal lymph nodes , likely reactive. 2. Bones: Degenerative changes of the osseous structures. No suspicious lesions. 3. Lung Bases: Moderate to large right pleural effusion. Groundglass infiltrates in the right lung with right basilar consolidation consistent with pneumonia. Small left pleural effusion with passive atelectasis. IMPRESSION: 1. No evidence for mechanical small bowel obstruction. 2. Cirrhosis with portal hypertension, ascites, and a large right and small left pleural effusion. Hypodense lesion in segment 8 of liver. Liver protocol MRI with contrast recommended. 3. Infiltrates in the right lower and right middle lobe likely reflect a combination of edema and pneumonia. 4. Thickening of multiple loops of small bowel may be secondary to ascites or enteritis. 5. Additional findings and details as above. [facility]-[id number] Performing Organization Address City/State/Zipcode Phone Number [facility] [address] [place] [address] CBC hemogram (04/15/2018 11:42 AM HEATING UNIT MECHANIC)Only the most recent of2 resultswithin the time period is included. WBC 8.05 4.50 - 11.00 k/uL [facility] RBC 2.57 (L) 4.40 - 6.00 m/uL [facility] HGB 8.6 (L) 14.0 - 18.0 g/dL [facility] HCT 25.1 (L) 41.0 - 51.0 % [facility] MCV 97.7 82.0 - 100.0 fL [facility] MCH 33.5 27.0 - 34.0 pg [facility] MCHC 34.3 31.0 - 37.0 g/dL [facility] RDW - SD 55.2 (H) 37.0 - 55.0 fL [facility] MPV 10.3 8.8 - 13.2 fL [facility] Platelet count 63 (L) 150 - 400 k/uL [facility] Nucleated RBC 0.00 /100 WBC [facility] Specimen Blood Performing Organization Address [facility] Phone Number [facility] DEPARTMENT OF PATHOLOGY AND [address] [place] [address] Hepatitis C virus quantitative by PCR (04/15/2018 5:27 AM HEATING UNIT MECHANIC) Hepatitis C Not-Detected Not-Detected IU/mL [facility] quantitative, PCR [facility] Hepatitis C See link below for [facility] quantitative, PCR [facility] Lab HOSPITAL ReportComment: Specimen Blood Performing Organization Address [facility] Phone Number [facility] DEPARTMENT OF PATHOLOGY AND [address] [place] [address] Thyroid stimulating hormone (04/15/2018 5:27 AM HEATING UNIT MECHANIC)Only the most recent of2 resultswithin the time period is included. TSH 1.51 0.27 - 4.20 uIU/mL [facility] Specimen Plasma specimen Performing Organization Address [facility] Phone Number [facility] DEPARTMENT OF PATHOLOGY AND [address] [place] [address] Phosphorus level (04/15/2018 5:27 AM HEATING UNIT MECHANIC) Phosphorus 2.3 (L) 2.4 - 4.5 mg/dL [facility] Specimen Plasma specimen Performing Organization Address [facility] Phone Number [facility] DEPARTMENT OF PATHOLOGY AND [address] [place] [address] Osmolality, serum (04/15/2018 5:27 AM HEATING UNIT MECHANIC) Osmolality 274 (L) 275 - 295 mOsm/kg [facility] Specimen Blood Performing Organization Address [facility]/Zipcode Phone Number [facility] DEPARTMENT OF PATHOLOGY AND [address] [place] [phone] [address] Magnesium level (04/15/2018 5:27 AM HEATING UNIT MECHANIC)Only the most recent of4 resultswithin the time period is included. Magnesium 1.7 1.6 - 2.4 mg/dL [facility] Specimen Plasma specimen Performing Organization Address City/[facility] Phone Number [facility] DEPARTMENT OF PATHOLOGY AND [address] [place] [phone] [place] [phone] Bilirubin direct (04/15/2018 5:27 AM HEATING UNIT MECHANIC) Bilirubin direct 0.9 (H) 0.0 - 0.3 mg/dL [facility] Specimen Plasma specimen Performing Organization Address [facility] Cent[facility] Phone Number [facility] DEPARTMENT OF PATHOLOGY AND [address] [place] [phone] [place] [phone] Ammonia level (04/15/2018 5:27 AM HEATING UNIT MECHANIC)Only the most recent of4 resultswithin the time period is included. Ammonia 53 16 - 60 umol/L [facility] Specimen Blood Performing Organization Address [facility] Phone Number [facility] DEPARTMENT OF PATHOLOGY AND [address] [place], [place] [phone] [address] [address] Sputum culture (04/15/2018 12:50 AM HEATING UNIT MECHANIC) Sputum culture isolate Normal oral isadora isolated. [facility] Comment: HOSPITAL Specimen Information Specimen Source: Sputum Specimen Site: Expectorated Specimen Sputum - Expectorated Performing Organization Address City/[facility]/Zipcode Phone Number [facility] DEPARTMENT OF PATHOLOGY AND [address] [place] [phone] [place] [phone] Urine culture (04/14/2018 11:30 PM HEATING UNIT MECHANIC)Only the most recent of5 resultswithin the time period is included. Urine culture SEE COMMENTComment: Bacteriuria [facility] screen negative. Performing Organization Address City/[facility]/Zipcode Phone Number [facility] DEPARTMENT OF PATHOLOGY AND [address] [place] [phone] [address] Urinalysis screen and microscopy, with reflex to culture (04/14/2018 11:29 PM HEATING UNIT MECHANIC)Only the most recent of5 resultswithin the time period is included. Specimen site Clean catch [facility] Color, UA Yellow [facility] Appearance, UA Clear [facility] Specific gravity, UA 1.011 1.001 - 1.035 [facility] pH, UA 6.0 5.0 - 8.5 [facility] Protein, UA Negative Negative [facility] Glucose, UA Negative Negative [facility] Ketones, UA Negative Negative [facility] Bilirubin, UA Negative Negative [facility] Blood, UA Negative Negative [facility] Nitrite, UA Negative Negative [facility] Urobilinogen, UA <2.0 <2.0 [facility] Leukocyte esterase, UA Negative Negative [facility] [facility] Epithelial cells, UA <1 /HPF [facility] WBC, UA 2 (H) 0 - 1 /HPF [facility] RBC, UA 3 0 - 5 /HPF [facility] Bacteria, UA Few None seen [facility] Yeast, UA None seen [facility] Yeast with pseudohyphae, UA None seen [facility] Hyaline casts, UA 7 /LPF [facility] Specimen Urine Performing Organization Address City/State/Zipcode Phone Number [facility] DEPARTMENT OF PATHOLOGY AND [address] [place] [address] [address] Urine drugs of abuse screen (04/14/2018 11:29 PM HEATING UNIT MECHANIC) Amphetamine screen, urine Negative [facility] Barbiturate screen, urine Negative [facility] Benzodiazepine screen, Negative [facility] Cannabinoid screen, urine Negative [facility] Cocaine screen, urine Negative [facility] Methadone metabolite Negative [facility] (EDDP), urine [facility] Opiates screen, urine Negative [facility] Oxycodone screen, urine Negative [facility] Phencyclidine screen, urine Negative [facility] Tricyclic screen, urine Negative [facility] Comment: HOSPITAL Drug screen minimum concentration of detectability Zebnjidvxjdu5380 ng/mL Barbiturates 200 ng/mL Bxxfqlwxbkscvbn429 ng/mL Daesdap841 ng/mL Rrurwfocq430 ng/mL Fevjzxh218 ng/mL Rrkmbjxwj540 ng/mL Phencyclidine 25 ng/mL Kbjsxosultxs70 ng/mL Iwtotlhirj7058 ng/mL Negative test results indicates presumptive evidence of lack of clinically significant drug concentration in this urine specimen. Positive test results are presumptive evidence of clinically significant drug concentration in this urine specimen. Testing performed for medical purposes only. Specimen Urine Performing Organization Address [facility] Phone Number [facility] DEPARTMENT OF PATHOLOGY AND [address] [place] [address] Respiratory pathogen panel (04/14/2018 9:46 PM HEATING UNIT MECHANIC) Respiratory pathogen Negative for all pathogens tested: [facility] Negative for Adenovirus HOSPITAL Negative for Coronavirus HKU1 Negative for Coronavirus NL63 Negative for Coronavirus 229E Negative for Coronavirus OC43 Negative for Human Metapneumovirus Negative for Rhinovirus/Enterovirus Negative for Influenza A Negative for Influenza A/H1 Negative for Influenza A/H3 Negative for Influenza A/H1-2009 Negative for Influenza B Negative for Parainfluenza Virus 1 Negative for Parainfluenza Virus 2 Negative for Parainfluenza Virus 3 Negative for Parainfluenza Virus 4 Negative for Respiratory Syncytial Virus Negative for Bordetella pertussis Negative for Chlamydophila pneumoniae Negative for Mycoplasma pneumoniae This real-time PCR assay detects the presence of nucleic acids (RNA or DNA) for the respiratory pathogens listed. A result of "Not-detected" does not exclude the possibility of the presence of one or more pathogens at concentrations less than the detectable limits of the assay. Comment: Specimen Information Specimen Source: Nares Specimen Site: Left Specimen Nares - Left Performing Organization Address City/[facility] Cent[facility]ode Phone Number [facility] DEPARTMENT OF PATHOLOGY AND [address] [place] [address] Prepare fresh frozen plasma, 2 Units (04/14/2018 9:20 PM HEATING UNIT MECHANIC)Only the most recent of7 resultswithin the time period is included. Product name Thawed Plasma [facility] Unit number [id number] [facility] Product code [id number] [facility] Dispense status Transfused [facility] Blood expiration date [facility] Blood type code 6200 [facility] Blood type A POSITIVE [facility] Product name Thawed Plasma [facility] Unit number [id number] [facility] Product code [id number] [facility] Dispense status Transfused [facility] Blood expiration date [facility] Blood type code 0600 [facility] Blood type A NEGATIVE [facility] Specimen Blood Performing Organization Address [facility] Cent[facility]ode Phone Number [facility] DEPARTMENT OF PATHOLOGY AND [address] [place] [address] Blood culture, aerobic & anaerobic (04/14/2018 9:20 PM HEATING UNIT MECHANIC)Only the most recent of6 resultswithin the time period is included. Blood culture isolate No growth after 5 days of incubation. [facility] Comment: HOSPITAL Specimen Information Specimen Source: Blood Specimen Site: Arm, right Specimen Blood - Arm, right Performing Organization Address [facility] Phone Number [facility] DEPARTMENT OF PATHOLOGY AND [address] [place] [address] Creatine kinase, total (CPK) (04/14/2018 9:20 PM HEATING UNIT MECHANIC)Only the most recent of3 resultswithin the time period is included. Creatine kinase SEE COMMENT 39 - 308 U/L [facility] Comment: Footnote--------- Unable to perform testing, specimen is HEMOLYZED.Recollect requested for CPK, LDH (tests).FLOR SIDDIQUI/ARIANA (name/location) notified by 04/14/201822:01 ____ (tech ID) at YY__ (date/time).CREDIT ISSUED. Specimen Plasma specimen Narrative Performed At __LACID results called to and read back by [facility] DEPARTMENT OF PATHOLOGY AND GENOMIC PATTI THAPA/ARIANA(name/location) MEDICINE at106/15/20177___ (date/time) by YY__. Performing Organization Address City/[facility]/Zipcode Phone Number [facility] DEPARTMENT OF PATHOLOGY AND [address] [place] [address] [place] [address] XR Abdomen 1 Vw Portable (04/14/2018 8:53 PM HEATING UNIT MECHANIC) Narrative Performed At EXAMINATION:XR ABDOMEN 1 VW PORTABLE [facility] CLINICAL HISTORY:Abd painunspecified, UPRIGHT COMPARISON:None. IMPRESSION: Dilated gas-filled loops of large bowel are seen measuring up to 6.2 cm. Paucity of bowel gas is seen over the rectum, and these findings suggest ileus or distal large bowel obstruction. No pathologic calcification over the kidneys or expected course of the ureters. No acute osseous abnormalities. Large right pleural effusion. Partial collapse of the right lung base is seen. [facility]-[id number] Procedure Note Hm Interface, Radiology Results Incoming - 04/14/2018 9:38 PM HEATING UNIT MECHANIC EXAMINATION: XR ABDOMEN 1 VW PORTABLE CLINICAL HISTORY: Abd pain unspecified, UPRIGHT COMPARISON: None. IMPRESSION: Dilated gas-filled loops of large bowel are seen measuring up to 6.2 cm. Paucity of bowel gas is seen over the rectum, and these findings suggest ileus or distal large bowel obstruction. No pathologic calcification over the kidneys or expected course of the ureters. No acute osseous abnormalities. Large right pleural effusion. Partial collapse of the right lung base is seen. [facility]-[id number] Performing Organization Address City/[facility] Centercode Phone Number [facility] [address] [place] [phone] Fungus smear (04/14/2018 8:25 PM HEATING UNIT MECHANIC)Only the most recent of2 resultswithin the time period is included. Fungus smear No fungi observed. [facility] Comment: Specimen Information Specimen Source: Thoracentesis fluid Specimen Site: Chest, right Specimen Thoracentesis fluid - Chest, right Performing Organization Address City/[facility]/Zipcode Phone Number [facility] DEPARTMENT OF PATHOLOGY AND [address] [place] [phone] GENOMIC MEDICINE [address] [address] Lipase level, misc fluid (04/14/2018 8:25 PM HEATING UNIT MECHANIC) Fluid type Pleural [facility] Lipase, fluid 13 U/L [facility] Comment: Analysis performed on Azalea 8000 analyzer. This is not an approved methodology for this specimen type;accuracy and clinical significance uncertain. Specimen Fluid Performing Organization Address City/[facility] Centercode Phone Number [facility] DEPARTMENT OF PATHOLOGY AND [address] [place] [phone] [address] AFB stain (04/14/2018 8:25 PM HEATING UNIT MECHANIC)Only the most recent of2 resultswithin the time period is included. AFB stain No acid fast bacilli (AFB) seen. [facility] Comment: Specimen Information Specimen Source: Thoracentesis fluid Specimen Site: Chest, right Specimen Thoracentesis fluid - Chest, right Performing Organization Address [facility] Centercomd Phone Number [facility] DEPARTMENT OF PATHOLOGY AND [address] [place] [phone] [place] [phone] Mycoplasma pneumoniae by PCR (04/14/2018 8:25 PM HEATING UNIT MECHANIC) Mycoplasma pneumoniae PCR Not-Detected Not-Detected [facility] Mycoplasma pneumoniae PCR See link below for [facility] Lab HOSPITAL ReportComment: Performing Organization Address [facility] Centercode Phone Number [facility] DEPARTMENT OF PATHOLOGY AND [address] [place] [address] Triglycerides, misc fluid (04/14/2018 8:25 PM HEATING UNIT MECHANIC)Only the most recent of2 resultswithin the time period is included. Fluid type Pleural [facility] Triglyceride, fluid 26 mg/dL [facility] Comment: Analysis performed on Azalea 8000 analyzer. This is not an approved methodology for this specimen type;accuracy and clinical significance uncertain. Specimen Fluid Performing Organization Address [facility] Centercomd Phone Number [facility] DEPARTMENT OF PATHOLOGY AND [address] [place] [phone] [address] Bilirubin total, misc fluid (04/14/2018 8:25 PM HEATING UNIT MECHANIC) Fluid type Pleural [facility] Bilirubin total, fluid 0.3 mg/dL [facility] Comment: HOSPITAL Analysis performed on Azalea 8000 analyzer. This is not an approved methodology for this specimen type;accuracy and clinical significance uncertain. Specimen Fluid Performing Organization Address City/[facility] Centercode Phone Number [facility] DEPARTMENT OF PATHOLOGY AND [address] [place] [address] [place] [address] Amylase level, misc fluid (04/14/2018 8:25 PM HEATING UNIT MECHANIC) Fluid type Pleural [facility] Amylase, fluid 19 U/L [facility] Comment: Analysis performed on Azalea 8000 analyzer. This is not an approved methodology for this specimen type;accuracy and clinical significance uncertain. Specimen Fluid Performing Organization Address City/[facility] Centercode Phone Number [facility] DEPARTMENT OF PATHOLOGY AND [address] [place] [phone] pH, misc fluid (04/14/2018 8:25 PM HEATING UNIT MECHANIC)Only the most recent of2 resultswithin the time period is included. Fluid type Pleural [facility] pH, fluid 8.50Comment: Reference ranges are not [facility] established for Miscellanous specimens. Specimen Fluid Performing Organization Address City/[facility] Centercomd Phone Number [facility] DEPARTMENT OF PATHOLOGY AND [address] [place] [phone] Venous blood gas (04/14/2018 7:05 PM HEATING UNIT MECHANIC) pH, venous 7.41 7.32 - 7.42 [facility] pCO2, venous 40 (L) 45 - 51 mmHg [facility] pO2, venous 36 25 - 40 mmHg [facility] Base excess, venous 0 -2 - 2 meq/L [facility] O2 saturation, venous 58 40 - 70 % [facility] Bicarbonate, venous 24.4 21.0 - 28.0 mmol/L [facility] Specimen Blood Performing Organization Address City/[facility]ercode Phone Number [facility] DEPARTMENT OF PATHOLOGY AND [address] [place] [phone] [place] Abdomen Complete (04/14/2018 6:45 PM HEATING UNIT MECHANIC) Narrative Performed At EXAMINATION:US ABDOMEN COMPLETE [facility] CLINICAL HISTORY:Ascites COMPARISON:None. TECHNIQUE:Ultrasound evaluation of the abdomen. FINDINGS: LIVER:The liver parenchyma is coarsened and hyperechogenic with a nodular surface contour, consistent with cirrhosis. There is no definite suspicious solid mass. BILIARY:The gallbladder is not well visualized. There is gallbladder wall thickening (6-7 mm), nonspecific in the setting of cirrhosis and ascites. There is no definite visualized cholelithiasis. There is a negative sonographic Hawley sign. Common bile duct measures 4 mm, within normal limits. There is no intrahepatic biliary ductal dilatation. PANCREAS:Incompletely visualized due to overlying bowel gas. SPLEEN:There is splenomegaly, measuring approximately 14.3 cm. There is no solid mass. KIDNEYS:Normal size bilaterally. No stone, hydronephrosis, or solid mass lesion. VASCULATURE:The visualized aorta and IVC appear unremarkable. The portal vein is normal in size and patent with hepatopedal flow. PERITONEUM:There is small volume ascites. PLEURA:Bilateral pleural effusions are noted. IMPRESSION: Hepatic cirrhosis without definite suspicious solid mass. Splenomegaly, small volume ascites, and bilateral pleural effusions. No definite evidence of cholelithiasis or acute cholecystitis. [facility]-[id number] Procedure Note [facility], Radiology Results Incoming - 04/14/2018 7:14 PM HEATING UNIT MECHANIC EXAMINATION: US ABDOMEN COMPLETE CLINICAL HISTORY: Ascites COMPARISON: None. TECHNIQUE: Ultrasound evaluation of the abdomen. FINDINGS: LIVER: The liver parenchyma is coarsened and hyperechogenic with a nodular surface contour, consistent with cirrhosis. There is no definite suspicious solid mass. BILIARY: The gallbladder is not well visualized. There is gallbladder wall thickening (6-7 mm), nonspecific in the setting of cirrhosis and ascites. There is no definite visualized cholelithiasis. There is a negative sonographic Hawley sign. Common bile duct measures 4 mm, within normal limits. There is no intrahepatic biliary ductal dilatation. PANCREAS: Incompletely visualized due to overlying bowel gas. SPLEEN: There is splenomegaly, measuring approximately 14.3 cm. There is no solid mass. KIDNEYS: Normal size bilaterally. No stone, hydronephrosis, or solid mass lesion. VASCULATURE: The visualized aorta and IVC appear unremarkable. The portal vein is normal in size and patent with hepatopedal flow. PERITONEUM: There is small volume ascites. PLEURA: Bilateral pleural effusions are noted. IMPRESSION: Hepatic cirrhosis without definite suspicious solid mass. Splenomegaly, small volume ascites, and bilateral pleural effusions. No definite evidence of cholelithiasis or acute cholecystitis. [facility]-[id number] Performing Organization Address City/State/Zipcode Phone Number [facility] [address] [place] [address] Troponin (04/14/2018 3:20 PM HEATING UNIT MECHANIC)Only the most recent of3 resultswithin the time period is included. Troponin <0.30 0.00 - 0.30 ng/mL [facility] Comment: 0.30 - 1.49 ng/mlMay indicate increased risk of acute coronary syndrome. >=1.5 ng/mlConsistent with acute myocardial infarction. The diagnostic value of a single normal or non-diagnostic result is questionable.Serial samples at 2-6 hour intervals are required to rule out acute myocardial injury. Specimen Plasma specimen Performing Organization Address City/[facility] Centercode Phone Number [facility] DEPARTMENT OF PATHOLOGY AND [address] [place] [address] Manual differential (04/14/2018 3:20 PM HEATING UNIT MECHANIC) Manual differential PERFORMED [facility] Neutrophils 95.0 (H) 39.0 - 69.0 % [facility] Lymphocytes 3.0 (L) 25.0 - 45.0 % [facility] Monocytes 2.0 0.0 - 10.0 % [facility] Eosinophils 0.0 0.0 - 5.0 % [facility] Basophils 0.0 0.0 - 1.0 % [facility] Metamyelocytes 0 % [facility] Promyelocytes 0 % [facility] Platelet slide review Andrew slt decr [facility] Acanthocytes Occasional [facility] Performing Organization Address City/[facility] Centercomd Phone Number [facility] DEPARTMENT OF PATHOLOGY AND [address] [place], [place] [phone] B natriuretic peptide (04/14/2018 3:20 PM HEATING UNIT MECHANIC)Only the most recent of2 resultswithin the time period is included. BNP 99 0 - 100 pg/mL [facility] Specimen Blood Performing Organization Address City/[facility]ercode Phone Number [facility] DEPARTMENT OF PATHOLOGY AND [address] [place], [place] [phone] Lipase level (04/14/2018 3:20 PM HEATING UNIT MECHANIC)Only the most recent of5 resultswithin the time period is included. Lipase 23 13 - 60 U/L [facility] Specimen Plasma specimen Performing Organization Address City/[facility] Centercode Phone Number [facility] DEPARTMENT OF PATHOLOGY AND [address] [place] [address] [facility] [address] [place] [address] Amylase level (04/14/2018 3:20 PM HEATING UNIT MECHANIC)Only the most recent of2 resultswithin the time period is included. Amylase 75 28 - 100 U/L [facility] Specimen Plasma specimen Performing Organization Address [facility] Centercode Phone Number [facility] DEPARTMENT OF PATHOLOGY AND [address] [place], [place] [phone] [place] [address] [address] [place] [address] [place] Abdominal Paracentesis Imaging (04/08/2018 1:44 PM HEATING UNIT MECHANIC)Only the most recent of7 resultswithin the time period is included. Narrative Performed At EXAMINATION:US ABDOMINAL PARACENTESIS IMAGING [facility] CLINICAL HISTORY: ASCITES COMPARISON:None. TECHNIQUE: The procedure's risks, benefits, and alternatives were discussed with the patient and written, informed consent was obtained. Using ultrasound guidance, a site for needle entry was selected and the overlying skin was prepped and draped in the usual sterile fashion. 1% buffered lidocaine was used for local anesthesia. A 5 Kazakh Yueh catheter was inserted into the peritoneal cavity and 1250 cc of straw-colored peritoneal fluid was removed. The fluid was sent to the lab for the requested studies.The patient tolerated the procedure without difficulty and was discharged to the radiology recovery area for monitoring prior to discharge. EBL: None. COMPLICATIONS: None. SPECIMENS: As above. ASSISTANTS: None. IMPRESSION: Uncomplicated ultrasound-guided paracentesis. [id number] Procedure Note Interface, Radiology Results Incoming - 04/08/2018 2:36 PM HEATING UNIT MECHANIC EXAMINATION: US ABDOMINAL PARACENTESIS IMAGING CLINICAL HISTORY: ASCITES COMPARISON:None. TECHNIQUE: The procedure's risks, benefits, and alternatives were discussed with the patient and written, informed consent was obtained. Using ultrasound guidance, a site for needle entry was selected and the overlying skin was prepped and draped in the usual sterile fashion. 1% buffered lidocaine was used for local anesthesia. A 5 Kazakh Yueh catheter was inserted into the peritoneal cavity and 1250 cc of straw-colored peritoneal fluid was removed. The fluid was sent to the lab for the requested studies. The patient tolerated the procedure without difficulty and was discharged to the radiology recovery area for monitoring prior to discharge. EBL: None. COMPLICATIONS: None. SPECIMENS: As above. ASSISTANTS: None. IMPRESSION: Uncomplicated ultrasound-guided paracentesis. [id number] Performing Organization Address City/[facility]/Zipcode Phone Number [facility] [address] [place] [address] Transfuse platelets (04/08/2018 11:14 AM HEATING UNIT MECHANIC)Only the most recent of2 resultswithin the time period is included.Transfuse fresh frozen plasma (2017 9:02 PM HEATING UNIT MECHANIC)Only the most recent of8 resultswithin the time period is included.Prepare platelet pheresis, 1 Units (04/06/2018 5:29 PM HEATING UNIT MECHANIC) Product name Platelets, Aph#2 LR Path [facility] Unit number [id number] [facility] Product code [id number] [facility] Dispense status Transfused [facility] Blood expiration date [id number] [facility] Blood type code 6200 [facility] Blood type A POSITIVE [facility] Performing Organization Address [facility]comd Phone Number [facility] DEPARTMENT OF PATHOLOGY AND [address] [place] [address] GENOMIC MEDICINE [facility] [address] [place] [address] [facility] US Abdominal Limited (03/16/2018 3:02 PM HEATING UNIT MECHANIC)Only the most recent of3 resultswithin the time period is included. Narrative Performed At EXAMINATION:US ABDOMINAL LIMITED [facility] CLINICAL HISTORY:ASCITES COMPARISON:None. TECHNIQUE: Limited four-quadrant abdominal ultrasound examination was performed in anticipation of performing paracentesis. IMPRESSION: 1.There is only a very small volume of ascites, without a sufficiently large pocket to safely target for paracentesis, and paracentesis would be of unlikely therapeutic benefit. Paracentesis was therefore not performed. 2.A right pleural effusion is noted. [id number] Procedure Note Hm Interface, Radiology Results Incoming - 03/16/2018 3:21 PM HEATING UNIT MECHANIC EXAMINATION: US ABDOMINAL LIMITED CLINICAL HISTORY: ASCITES COMPARISON: None. TECHNIQUE: Limited four-quadrant abdominal ultrasound examination was performed in anticipation of performing paracentesis. IMPRESSION: 1. There is only a very small volume of ascites, without a sufficiently large pocket to safely target for paracentesis, and paracentesis would be of unlikely therapeutic benefit. Paracentesis was therefore not performed. 2. A right pleural effusion is noted. [id number] Performing Organization Address City/State/Zipcode Phone Number MATHIE[facility] [address] [place] [address] Hepatic function panel (03/12/2018 9:23 AM HEATING UNIT MECHANIC)Only the most recent of4 resultswithin the time period is included. Albumin 2.5 (L) 3.5 - 5.0 g/dL [facility] DEPARTMENT OF PATHOLOGY AND GENOMIC MEDICINE Total bilirubin 3.0 (H) 0.0 - 1.2 mg/dL [facility] DEPARTMENT OF PATHOLOGY AND GENOMIC MEDICINE Bilirubin direct 0.8 (H) 0.0 - 0.3 mg/dL [facility] DEPARTMENT OF PATHOLOGY AND GENOMIC MEDICINE Alkaline phosphatase 138 (H) 40 - 129 U/L [facility] DEPARTMENT OF PATHOLOGY AND GENOMIC MEDICINE Protein 6.5 6.3 - 8.3 g/dL [facility] DEPARTMENT OF Comment: PATHOLOGY AND GENOMIC 4.6-7.0 g/dL MEDICINE 1 week 4.4-7.6 g/dL 7 months-1year5.1-7.3 g/dL 1-2 years5.6-7.5 g/dL >3 years6.0-8.0 g/dL 18-150 6.3-8.3 g/dL ALT 40 5 - 50 U/L [facility] DEPARTMENT OF PATHOLOGY AND GENOMIC MEDICINE AST 72 (H) 10 - 50 U/L [facility] DEPARTMENT OF PATHOLOGY AND GENOMIC MEDICINE Specimen Plasma specimen Performing Organization Address City/[facility] Phone Number [facility] DEPARTMENT OF PATHOLOGY AND [address] [place] [address] GENOMIC MEDICINE Cytology (non-gynecological) request (03/07/2018 5:19 PM HEATING UNIT MECHANIC)Only the most recent of5 resultswithin the time period is included. [facility] DEPARTMENT OF PATHOLOGY AND GENOMIC MEDICINE Cytology See link below for PDF [facility] DEPARTMENT OF (non-gynecological) report Lab Report PATHOLOGY AND GENOMIC MEDICINE Result status This is Final Report [facility] DEPARTMENT OF for [id number] PATHOLOGY AND GENOMIC MEDICINE Performing Organization Address [facility] Phone Number [facility] DEPARTMENT OF PATHOLOGY AND [address] [place] [address] [place] [address] [facility] MEDICINE Body fluid consult (03/06/2018 6:46 PM HEATING UNIT MECHANIC)Only the most recent of3 resultswithin the time period is included. Body fluid consult Done [facility] DEPARTMENT OF Comment: PATHOLOGY AND GENOMIC FAVOR REACTIVE MESOTHELIAL CELLS, SEE SEPERATE CYTOLOGY REPORT IN PROCESS. MEDICINE REVIEWED BY DR. ZEESHAN DHALIWAL Specimen Fluid Performing Organization Address [facility] Phone Number [facility] DEPARTMENT OF PATHOLOGY AND [address] [place] [address] [place] [address] [facility] AFB culture (03/06/2018 6:46 PM HEATING UNIT MECHANIC) AFB culture isolate No growth after 6 weeks of incubation. [facility] Comment: Specimen Information Specimen Source: Pleural fluid Specimen Site: Pleural Specimen Pleural fluid - Pleural Performing Organization Address [facility] Phone Number [facility] DEPARTMENT OF PATHOLOGY AND [address] [place] [phone] Fungus culture (03/06/2018 6:46 PM HEATING UNIT MECHANIC) Fungus culture isolate No growth after 4 weeks of incubation. [facility] Comment: HOSPITAL Specimen Information Specimen Source: Pleural fluid Specimen Site: Pleural Specimen Pleural fluid - Pleural Performing Organization Address [facility] Phone Number [facility] DEPARTMENT OF PATHOLOGY AND [address] [place] [phone] Lactic acid level, SEPSIS - Now and repeat 2x every 3 hours (02/25/2018 4:48 AM CDT)Only the most recent of6 resultswithin the time period is included. Lactic acid 1.9 0.5 - 2.2 mmol/L [facility] DEPARTMENT OF PATHOLOGY AND GENOMIC MEDICINE Specimen Plasma specimen Performing Organization Address [facility] Cent[facility]ode Phone Number [facility] DEPARTMENT OF PATHOLOGY AND [address] [place] [address] [place] [address] [facility] CT Abdomen Pelvis W Contrast (02/24/2018 8:02 PM CDT)Only the most recent of2 resultswithin the time period is included. Narrative Performed At EXAMINATION:CT ABDOMEN PELVIS W CONTRAST HM RADIANT CLINICAL HISTORY:Abd painfeverabscess suspected, Abd infection [...] No abscess identified but peritonitis not excluded. [facility]-[id number] Procedure Note Interface, Radiology Results Incoming - 02/24/2018 8:17 [...] No abscess identified but peritonitis not excluded. [facility]-[id number] Performing Organization Address City/[facility]/Zipcode Phone Number [facility] [address] [place] [address] Influenza antigen (02/24/2018 7:35 PM CDT) Influenza antigen Negative for Influenza A/B antigen. [facility] DEPARTMENT OF Comment: PATHOLOGY AND GENOMIC Specimen Information MEDICINE Specimen Source: Nares Specimen Site: Left Specimen Nares - Left Performing Organization Address [facility] Phone Number [facility] DEPARTMENT OF PATHOLOGY AND [id number] [place] [address] [place] [address] GENOMIC MEDICINE POC glucose (02/03/2018 4:32 PM CDT)Only the most recent of4 resultswithin the time period is included. POC glucose 104 (H) 65 - 99 mg/dL [facility] DEPARTMENT OF PATHOLOGY AND Comment: GENOMIC MEDICINE Meter ID: [id number] Coroner Technician: Kamari Hoskins Performing Organization Address [facility]/Zipcode Phone Number [facility] DEPARTMENT OF PATHOLOGY AND [id number] [place] [address] [place] [address] [employer] [facility] Hemoglobin A1c (02/03/2018 4:20 AM CDT) Hemoglobin A1C 4.1 4.0 - 6.0 % [facility] DEPARTMENT OF PATHOLOGY Comment: AND [employer] MEDICINE Less than 6% - Goal of [...] as 12.9 on 02/03/2018 at 07:24 by [facility] Specimen Blood Performing Organization Address [facility]com[facility] Phone Number [facility] DEPARTMENT OF PATHOLOGY AND [id number] [place] [address] [place] [address] [employer] [facility] Estimated GFR (12/14/2017 8:55 AM CDT)Only the most recent of3 resultswithin the time period is included. GFR Non Af Amer >90 mL/min/1.73 m2 [facility] DEPARTMENT OF PATHOLOGY AND GENOMIC MEDICINE GFR Af Amer >90 mL/min/1.73 m2 [facility] DEPARTMENT OF Comment: PATHOLOGY AND GENOMIC Chronic kidney disease: <60 mL/min/1.73m2 MEDICINE Kidney [...] Americans. Specimen Plasma specimen Performing Organization Address [facility]/Zipcode Phone Number [facility] DEPARTMENT OF PATHOLOGY AND [id number] [place] [address] [place] [address] Hitch after 04/29/2017 Insurance Payer Benefit Plan / Group Subscriber ID Type Phone Address MEDICAID MEDICAID xxxxxxxxx Medicaid Advance Directives Patient has advance care planning documents, and code status on file. For more information, please contact:Cas Neal[address] [address] Code Status Date Activated Date Inactivated Comments Full Code 03/06/2018 1:51 AM 03/22/2018 2:03 AM Code Status decision reached by: Patient Full Code 02/24/2018 9:45 PM 03/04/2018 7:16 PM Code Status decision reached by: Patient Full Code 02/01/2018 9:11 PM 02/04/2018 6:11 PM Code Status decision reached by: Patient
[2018-04-30] MEDS ORDERED: ONDANSETRON 4 MG/2 ML VIAL ONE (23:52)
[2018-04-30] MEDS ORDERED: NA CHLORIDE 0.9% 1,000 ML ONE (23:52)
[2018-05-01 00:12] LABS: Absolute Lymphocytes (CBC) 0.7 K/uL (0.7-4.9); Absolute Monocytes 0.9 K/uL (0.1-1.3); Absolute Neutrophil 12.6 K/uL (1.8-8.0); Basophils % 0.3 % (0-1.3); Eosinophils % 0.8 % (0-4.4); Hematocrit 32.2 % (39.6-49.0); MPV 8.5 fL (7.6-11.3); Monocytes % 6.3 % (3.3-12.3); RBC Red Blood Cell Count 3.31 M/uL (4.33-5.43)
[2018-05-01 00:21] LABS: Albumin 3.7 g/dL (3.4-5.0); Bilirubin Direct 0.9 mg/dL (0-0.2); Bilirubin Total 4.1 mg/dL (0.2-1.0); Potassium 4.7 mmol/L (3.5-5.1); Protein, Total 7.3 g/dL (6.4-8.2)
[2018-05-01] MEDS ORDERED: PROMETHAZINE 25 MG/ML VIAL ONE (00:32)
[2018-05-01 00:50] LABS: Blood Morphology Comment NOT SEEN (NOT SEEN); Platelet Estimate ADEQ; Urine White Blood Cell Casts OK
[2018-05-01] MEDS ORDERED: MORPHINE 4 MG/ML SYR ONE (00:55)
[2018-05-01] MEDS ORDERED: MEPERIDINE HCL 50 MG/ML AMP ONE (02:29)
--- NOTE | 2018-05-01 04:34 | ER ---
Nurse's Notes [facility] Name: Nico Moulton Age: 63 yrs Sex: Male : 1955 Arrival Date: 04/30/2018 Time: 22:56 Bed 14 Private MD: Diagnosis: Abdominal pain. Vomiting. Right pleural effusion. Cirrhosis. Hepatitis C Presentation: 04/30 22:57 Presenting complaint: states: He started having stomach cramps around 1900, I gave jb4 him a dose of promethazine and he threw up immediately after and has been throwing up since. He was just released from [facility] in [place] yesterday and had a thoracentesis done on the . 22:57 Transition of care: patient was not received from another setting of care. Onset of jb4 symptoms was April 30, 2018. Risk Assessment: Do you want to hurt yourself or someone else? Patient reports no desire to harm self or others. Initial Sepsis Screen: Does the patient meet any 2 criteria? No. Patient's initial sepsis screen is negative. Does the patient have a suspected source of infection? No. Patient's initial sepsis screen is negative. Care prior to arrival: None. 22:57 Method Of Arrival: Ambulatory jb4 22:57 Acuity: RONNY 3 jb4 Triage Assessment: 23:00 GI: Reports nausea, tolerance of food. jb4 Historical: - Allergies: 22:57 No Known Allergies; jb4 - Home Meds: 22:57 B-100 Complex oral oral [Active]; Ferrous Sulfate Oral [Active]; Folic Acid Oral jb4 [Active]; Lactulose Oral [Active]; milk thistle oral oral [Active]; Mirtazapine Oral [Active]; multivitamin with minerals oral oral [Active]; pantoprazole oral oral [Active]; Promethazine Oral [Active]; rifaximin oral oral [Active]; spironolactone Oral [Active]; sulfamethoxazole-trimethoprim Oral [Active]; Thiamine Oral [Active]; Tramadol Oral [Active]; Zinc Sulfate Oral [Active]; - PMHx: 22:57 liver failure; Hepatitis; Cirrhosis; esophageal varices; jb4 - PSHx: 22:57 thoracentisis; jb4 - Immunization history:: Adult Immunizations up to date, Last tetanus immunization: up to date Pneumococcal vaccine is up to date, Flu vaccine is up to date. - Social history:: Smoking status: Patient/guardian denies using tobacco, Patient/guardian denies using alcohol. - Ebola Screening: : No symptoms or risks identified at this time. Screenin:00 Abuse screen: Denies threats or abuse. Nutritional screening: No deficits noted. jb4 Tuberculosis screening: No symptoms or risk factors identified. Fall Risk None identified. Assessment: 23:00 General: Appears in no apparent distress. uncomfortable, Behavior is calm, cooperative, jb4 appropriate for age. Pain: Complains of pain in abdomen Pain does not radiate. Pain currently is 10 out of 10 on a pain scale. Quality of pain is described as crampy, Pain began 1899 Is continuous. Neuro: Level of Consciousness is awake, alert, obeys commands, Oriented to person, place, time, situation. Cardiovascular: Patient's skin is warm and dry. Respiratory: Airway is patent Respiratory effort is even, unlabored, Respiratory pattern is regular, symmetrical. GI: Abdomen is flat, non-distended, Pt is actively vomiting Bowel sounds present X 4 quads. Abd is soft and non tender X 4 quads. : No signs and/or symptoms were reported regarding the genitourinary system. EENT: No signs and/or symptoms were reported regarding the EENT system. Derm: Skin is intact, Skin is pink, warm \T\ dry. Musculoskeletal: Circulation, motion, and sensation intact. 05/01 00:00 Reassessment: Patient appears in no apparent distress at this time. Patient and/or jb4 family updated on plan of care and expected duration. Pain level reassessed. Patient is alert, oriented x 3, equal unlabored respirations, skin warm/dry/pink. 01:00 Reassessment: Patient appears in no apparent distress at this time. Patient and/or jb4 family updated on plan of care and expected duration. Pain level reassessed. Patient is alert, oriented x 3, equal unlabored respirations, skin warm/dry/pink. Patient states feeling better. 02:00 Reassessment: Patient appears in no apparent distress at this time. Patient and/or jb4 family updated on plan of care and expected duration. Pain level reassessed. Patient is alert, oriented x 3, equal unlabored respirations, skin warm/dry/pink. 03:15 Reassessment: Patient appears in no apparent distress at this time. Patient and/or jb4 family updated on plan of care and expected duration. Pain level reassessed. Patient is alert, oriented x 3, equal unlabored respirations, skin warm/dry/pink. Pt to CT via stretcher Patient states feeling better. 03:52 Reassessment: Patient appears in no apparent distress at this time. Patient and/or jb4 family updated on plan of care and expected duration. Pain level reassessed. Patient is alert, oriented x 3, equal unlabored respirations, skin warm/dry/pink. Cardiovascular: Patient's skin is warm and dry. Respiratory: Airway is patent Respiratory effort is even, unlabored, Respiratory pattern is regular, symmetrical, Breath sounds are clear bilaterally. Denies shortness of breath labored breathing. Vital Signs: 04/30 22:57 BP 127 / 69; Pulse 84; Resp 16; Temp 98.2; Pulse Ox 99% on R/A; Weight 61.69 kg; Height [facility] 5 ft. 5 in. (165.10 cm); 05/01 00:00 BP 111 / 54; Pulse 72; Resp 16; Pulse Ox 98% on R/A; jb4 01:00 BP 113 / 53; Pulse 81; Resp 16; Pulse Ox 96% on R/A; jb4 02:00 BP 118 / 51; Pulse 84; Resp 16; Pulse Ox 96% on R/A; jb4 03:00 BP 106 / 66; Pulse 96; Resp 16; Pulse Ox 94% on R/A; jb4 04:15 BP 106 / 54; Pulse 77; Resp 16; Pulse Ox 96% on R/A; jb4 04:41 BP 103 / 61; Pulse 83; Resp 16; Temp 98.8(TE); Pulse Ox 100% on R/A; jb4 04/30 22:57 Body Mass Index 22.63 (61.69 kg, 165.10 cm) [facility] ED Course: 04/30 22:56 Patient arrived in ED. es 22:57 Elmer Peace, RN is Primary Nurse. jb4 22:57 Arm band placed on left wrist. jb4 23:00 Kaushik Connelly MD is Attending Physician. pkl 23:00 Patient has correct armband on for positive identification. Bed in low position. Call jb4 light in reach. Side rails up X 1. Pulse ox on. NIBP on. 23:25 Triage completed. jb4 23:58 Inserted saline lock: 20 gauge in right antecubital area, using aseptic technique. ag4 Blood collected. 05/01 00:03 Patient moved to radiology via wheelchair. sg4 00:06 X-ray completed. Patient tolerated procedure well. sg4 00:07 Patient moved back from radiology. sg4 00:13 XRAY Abdomen Acute Series In Process Unspecified. EDMS 03:26 CT completed. Patient tolerated procedure well. Patient moved to CT via stretcher. Patient moved back from CT. 03:35 Chest Abdomen Pelvis W Cont In Process Unspecified. EDMS 04:50 Assist provider with bone marrow aspiration. IV discontinued, intact, bleeding jb4 controlled. Administered Medications: 00:20 Not Given (Patient Refused): Zofran 4 mg IVP once; over 2 minutes jb4 00:20 Drug: NS 0.9% 500 ml Route: IV; Rate: bolus; Site: right antecubital; jb4 00:45 Follow up: Response: No adverse reaction; IV Status: Completed infusion jb4 00:29 Drug: Phenergan 12.5 mg Route: IVP; Site: right antecubital; jb4 01:59 Follow up: Response: No adverse reaction; Nausea is decreased jb4 00:45 Drug: NS 0.9% 1000 ml Route: IV; Rate: 100 ml/hr; Site: right antecubital; jb4 04:38 Follow up: Response: No adverse reaction; IV Status: Completed infusion jb4 00:49 Drug: morphine 4 mg Route: IVP; Site: right antecubital; jb4 01:59 Follow up: Response: No adverse reaction; Pain is decreased jb4 01:59 Drug: Phenergan 12.5 mg Route: IVP; Site: right antecubital; jb4 02:50 Follow up: Response: No adverse reaction; Nausea is decreased jb4 02:25 Drug: Demerol 50 mg Route: IVP; Site: right antecubital; jb4 02:50 Follow up: Response: No adverse reaction; Pain is decreased jb4 Outcome: 04:34 Discharge ordered by pkl 04:50 Discharged to home via wheelchair, with family. jb4 04:50 Condition: stable 04:50 Discharge instructions given to patient, significant other, Instructed on discharge instructions, follow up and referral plans. medication usage, Demonstrated understanding of instructions, follow-up care, medications, Prescriptions given X 1. 04:55 Patient left the ED. jb4 Signatures: Dispatcher [employer] Kaushik Levin MD MD pkl Salyer, Terry Grayson James RN RN jb4 Brooklynn Ladd4 Luan Greenwood ag4 Corrections: (The following items were deleted from the chart) 04:42 04:41 BP 103 / 61; Pulse 83bpm; Resp 16bpm; Pulse Ox 100% RA; jb4 jb4
--- NOTE | 2018-05-01 04:34 | EDPHYS ---
Physician Documentation [facility] Name: Nico Moulton Age: 63 yrs Sex: Male : 1955 Arrival Date: 04/30/2018 Time: 22:56 Bed 14 Private MD: ED Physician Kaushik Connelly HPI: 05/01 00:16 This 63 yrs old Male presents to ER via Ambulatory with complaints of pkl Vomiting. 00:16 The patient presents to the emergency department with nausea, vomiting. Onset: The pkl symptoms/episode began/occurred 4 hour(s) ago. Associated signs and symptoms: Pertinent positives: abdominal pain. Patient discharged from [facility] ( [place] ) yesterday after having thoracentesis done on 04/28/18. Historical: - Allergies: 04/30 22:57 No Known Allergies; jb4 - Home Meds: 22:57 B-100 Complex oral oral [Active]; Ferrous Sulfate Oral [Active]; Folic Acid Oral jb4 [Active]; Lactulose Oral [Active]; milk thistle oral oral [Active]; Mirtazapine Oral [Active]; multivitamin with minerals oral oral [Active]; pantoprazole oral oral [Active]; Promethazine Oral [Active]; rifaximin oral oral [Active]; spironolactone Oral [Active]; sulfamethoxazole-trimethoprim Oral [Active]; Thiamine Oral [Active]; Tramadol Oral [Active]; Zinc Sulfate Oral [Active]; - PMHx: 22:57 liver failure; Hepatitis; Cirrhosis; esophageal varices; jb4 - PSHx: 22:57 thoracentisis; jb4 - Immunization history:: Adult Immunizations up to date, Last tetanus immunization: up to date Pneumococcal vaccine is up to date, Flu vaccine is up to date. - Social history:: Smoking status: Patient/guardian denies using tobacco, Patient/guardian denies using alcohol. - Ebola Screening: : No symptoms or risks identified at this time. ROS: 05/01 00:16 Eyes: Negative for injury, pain, redness, and discharge, ENT: Negative for injury, pkl pain, and discharge, Neck: Negative for injury, pain, and swelling, Cardiovascular: Negative for chest pain, palpitations, and edema, Respiratory: Negative for shortness of breath, cough, wheezing, and pleuritic chest pain. Abdomen/GI: Positive for nausea and vomiting. Back: Negative for acute changes. : Negative for urinary symptoms. MS/extremity: Negative for acute changes. Skin: Negative for rash. Neuro: Negative for altered mental status. Exam: 00:16 Head/Face: Normocephalic, atraumatic. Eyes: Pupils equal round and reactive to light, pkl extra-ocular motions intact. Lids and lashes normal. Conjunctiva and sclera are non-icteric and not injected. Cornea within normal limits. Periorbital areas with no swelling, redness, or edema. ENT: Nares patent. No nasal discharge, no septal abnormalities noted. Tympanic membranes are normal and external auditory canals are clear. Oropharynx with no redness, swelling, or masses, exudates, or evidence of obstruction, uvula midline. Mucous membranes moist. Neck: Trachea midline, no thyromegaly or masses palpated, and no cervical lymphadenopathy. Supple, full range of motion without nuchal rigidity, or vertebral point tenderness. No Meningismus. Chest/axilla: Normal chest wall appearance and motion. Nontender with no deformity. No lesions are appreciated. Cardiovascular: Regular rate and rhythm with a normal S1 and S2. No gallops, murmurs, or rubs. Normal PMI, no JVD. No pulse deficits. Respiratory: Lungs have equal breath sounds bilaterally, clear to auscultation and percussion. No rales, rhonchi or wheezes noted. No increased work of breathing, no retractions or nasal flaring. 00:16 Abdomen/GI: Bowel sounds: normal, Palpation: soft, mild abdominal tenderness, in the right upper quadrant and left upper quadrant. 00:16 Back: Exam negative for acute changes. pkl 00:16 : Exam negative for acute changes. 00:16 Musculoskeletal/extremity: Exam is negative for acute changes. 00:16 Skin: Exam negative for rash. 00:16 Neuro: Orientation: is normal, Mentation: is normal, Cranial nerves: grossly normal, Motor: is normal. Vital Signs: 04/30 22:57 BP 127 / 69; Pulse 84; Resp 16; Temp 98.2; Pulse Ox 99% on R/A; Weight 61.69 kg; Height jb4 5 ft. 5 in. (165.10 cm); 05/01 00:00 BP 111 / 54; Pulse 72; Resp 16; Pulse Ox 98% on R/A; jb4 01:00 BP 113 / 53; Pulse 81; Resp 16; Pulse Ox 96% on R/A; jb4 02:00 BP 118 / 51; Pulse 84; Resp 16; Pulse Ox 96% on R/A; jb4 03:00 BP 106 / 66; Pulse 96; Resp 16; Pulse Ox 94% on R/A; jb4 04:15 BP 106 / 54; Pulse 77; Resp 16; Pulse Ox 96% on R/A; jb4 04:41 BP 103 / 61; Pulse 83; Resp 16; Temp 98.8(TE); Pulse Ox 100% on R/A; jb4 04/30 22:57 Body Mass Index 22.63 (61.69 kg, 165.10 cm) jb4 MDM: 04/30 23:00 Patient medically screened. pkl 05/01 01:40 Data reviewed: vital signs, nurses notes, lab test result(s), radiologic studies, CT pkl scan, plain films. 04:35 ED course: Patient feeling better. Abdominal pain and vomiting resolved. Want to go pkl home. 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 Patient and understood instructions.. 04/30 23:34 Order name: Basic Metabolic Panel; Complete Time: 00:34 pkl 04/30 23:34 Order name: CBC with Diff; Complete Time: 00:52 pkl 04/30 23:34 Order name: Creatinine for Radiology; Complete Time: 00:34 pkl 04/30 23:34 Order name: Hepatic Function; Complete Time: 00:34 pkl 04/30 23:34 Order name: Lipase; Complete Time: 00:34 pkl 05/01 00:50 Order name: CBC Smear Scan; Complete Time: 00:52 EDMS 04/30 23:34 Order name: XRAY Abdomen Acute Series pkl 05/01 03:35 Order name: Chest Abdomen Pelvis W Cont EDMS 04/30 23:34 Order name: IV Saline Lock; Complete Time: 00:29 pkl 04/30 23:34 Order name: Labs collected and sent; Complete Time: 00:29 pkl Administered Medications: 00:20 Not Given (Patient Refused): Zofran 4 mg IVP once; over 2 minutes jb4 00:20 Drug: NS 0.9% 500 ml Route: IV; Rate: bolus; Site: right antecubital; jb4 00:45 Follow up: Response: No adverse reaction; IV Status: Completed infusion jb4 00:29 Drug: Phenergan 12.5 mg Route: IVP; Site: right antecubital; jb4 01:59 Follow up: Response: No adverse reaction; Nausea is decreased jb4 00:45 Drug: NS 0.9% 1000 ml Route: IV; Rate: 100 ml/hr; Site: right antecubital; jb4 04:38 Follow up: Response: No adverse reaction; IV Status: Completed infusion jb4 00:49 Drug: morphine 4 mg Route: IVP; Site: right antecubital; jb4 01:59 Follow up: Response: No adverse reaction; Pain is decreased jb4 01:59 Drug: Phenergan 12.5 mg Route: IVP; Site: right antecubital; jb4 02:50 Follow up: Response: No adverse reaction; Nausea is decreased jb4 02:25 Drug: Demerol 50 mg Route: IVP; Site: right antecubital; jb4 02:50 Follow up: Response: No adverse reaction; Pain is decreased jb4 Disposition: 05/01/18 04:34 Discharged to Home. Impression: Abdominal pain. Vomiting. Right pleural effusion. Cirrhosis. Hepatitis C. - Condition is Stable. - Prescriptions for Ultram 50 mg Oral Tablet - take 1 tablet by ORAL route every 8 hours As needed; 20 tablet. - Medication Reconciliation Form, Thank You Letter, Antibiotic Education, Prescription Opioid Use form. - Follow up: Private Physician; When: 2 - 3 days; Reason: Re-evaluation by your physician. - Problem is new. - Symptoms have improved. Signatures: Dispatcher [employer] EDSD Kaushik Connelly MD MD pkl Bryson, James, RN RN jb4 Corrections: (The following items were deleted from the chart) 03:35 00:40 Abdomen Pelvis W Con+CT.RAD.BRZ ordered. [facility] EDSD 04:55 04:34 05/01/2018 04:34 Discharged to Home. Impression: Abdominal pain. Vomiting. Right jb4 pleural effusion. Cirrhosis. Hepatitis C. Condition is Stable. Forms are Medication Reconciliation Form, Thank You Letter, Antibiotic Education, Prescription Opioid Use. Follow up: Private Physician; When: 2 - 3 days; Reason: Re-evaluation by your physician. Problem is new. Symptoms have improved. pkl
[2018-05-01 05:09] VITALS: BP 103/61; TEMP 98.8; O2SAT 100
--- NOTE | 2018-05-01 11:46 | RAD REPORT ---
EXAM DESCRIPTION: RAD - Abdomen Acute Series - 05/01/2018 12:08 am CLINICAL HISTORY: Abd pain;Nausea / vomiting COMPARISON: Abdomen Acute Series dated 03/05/2018; Chest Abdomen Pelvis W Cont dated 05/01/2018 FINDINGS: Subpulmonic right pleural effusion is suspected, moderate in size. The left lung appears g rossly clear. The heart is normal in size. No evidence of pneumoperitoneum. No bowel obstruction romaine gigi is seen.
--- NOTE | 2018-05-01 12:35 | RAD REPORT ---
EXAM DESCRIPTION: CT - Chest Abdomen Pelvis W Cont - 05/01/2018 5:09 am CLINICAL HISTORY: Chest and abdomen pain. vomiting;Abd pain COMPARISON: CT ABD PELVIS W CONTRAST dated 04/13/2008No comparisons TECHNIQUE: Approximately 100 mL nonionic IV contrast was administered to the patient. All CT scans are performed using dose optimization technique as appropriate and may include automated exposure control or mA/KV adjustment according to patient size. FINDINGS: A moderate right pleural effusion is present with atelectasis in the right lung base.Numer ous esophageal varices are present.No left-sided pleural or pericardial fluid seen.No intrathoracic a denopathy. Prominent liver cirrhosis. Significant splenomegaly is seen. Portal venous system is enlarged compati ble with portal venous hypertension. The pancreas, adrenal glands and kidneys are within normal limit s. Mild ascites is seen. Diffuse dilatation of small bowel and colon is present with fluid. No finding t o indicate appendicitis No pathologic lymphadenopathy in the abdomen or pelvis. No worrisome osseous finding. IMPRESSION: Moderate right pleural effusion is seen. Advanced liver cirrhosis with splenomegaly, mild ascites and portal hypertension. Nonspecific small bowel and colonic distention likely represents ileus.
== END 2018-05-01 04:55 | disposition home or self-care (01) ==
LOC: ER 22:50
DX: R10.9 Unspecified abdominal pain (principal); J90 Pleural effusion, not elsewhere classified; K74.60 Unspecified cirrhosis of liver; B19.20 Unspecified viral hepatitis C without hepatic coma
CPT/HCPCS: 36415; 71260; 74022; 74177; 80048; 80076; 83690; 85025; 96361; 96374; 96375; 99285; J2175; J2405; J2550; J7030; Q9967

== ENCOUNTER 2018-09-05 12:44 | Emergency (ER) | payer OTHER ==
[2018-09-05] MEDS ORDERED: EPINEPHrine 1 MG/10 ML SYR IV ONE (12:45)
[2018-09-05] MEDS ORDERED: NA CHLORIDE 0.9% 1,000 ML IV ONE (12:45)
[2018-09-05] MEDS ORDERED: Caclcium Chloride 10% INJ SYR IV ONE (12:45)
--- NOTE | 2018-09-05 13:12 | EDPHYS ---
Physician Documentation [facility] Name: Nico Moulton Age: 63 yrs Sex: Male : 1955 Arrival Date: 09/05/2018 Time: 12:49 Bed 4 Private MD: ED Physician Pro Gregory HPI: 09/05 13:06 This 63 yrs old Male presents to ER via EMS with complaints of Unresponsive. cosmo 13:06 The patient has shortness of breath at rest. Onset: The symptoms/episode began/occurred cosmo 2 week(s) ago. The patient's shortness of breath has no apparent modifying factors. The patient presents with trouble concentrating. Patient's baseline: Neuro: alert and fully oriented. Severity of symptoms: At their worst the symptoms were severe in the emergency department the symptoms are unchanged. 13:07 thin, jaundice male, shallow respirations, thready pulse, via ems family states dnr. cosmo Historical: - Allergies: 13:10 No Known Allergies; iw - PMHx: 13:03 Cirrhosis; esophageal varices; Hepatitis; liver failure; iw - PSHx: 13:03 thoracentisis; iw - Immunization history:: Adult Immunizations unknown. - Social history:: Smoking status: unknown. - Family history:: not pertinent. - Ebola Screening: : Unable to complete screening because. ROS: 13:07 Unable to obtain ROS due to obtunded state. cosmo Exam: 13:07 Constitutional: The patient appears comatose, emaciated, frail, in obvious distress, cosmo agonal and shallow respirations. 13:07 Skin: Appearance: Color: jaundiced. Vital Signs: 12:45 BP 136 / 81; Pulse 80; Resp 8 S; aa5 12:48 aa5 12:59 Pulse 0; aa5 12:45 Unable to obtain O2 sat. aa5 12:48 Unable to obtain VS aa5 MDM: 13:01 Patient medically screened. [facility] 09/05 13:20 Order name: glucometer results - FOR PT WITH NO ID aa5 Administered Medications: 12:47 Drug: EPINEPHrine 0.1mg/mL 1:10,000 1 mg Route: IVP; Site: right jugular; iw 12:49 Follow up: Response: No change in condition aa5 12:47 Drug: Sodium Bicarbonate 1 amp Route: IVP; Site: right jugular; iw 12:49 Follow up: Response: No adverse reaction aa5 12:48 Drug: Calcium Chloride 1 grams Route: IVP; Site: right jugular; iw 12:49 Follow up: Response: No adverse reaction; No change in condition aa5 Point of Care Testing: Blood Glucose: 12:46 Blood Glucose: 82 mg/dL; aa5 Ranges: Critical Glucose Levels:Adult <50 mg/dl or >400 mg/dl <40 mg/dl or >180 mg/dl Disposition: Patient pronounced on 09/05/18 12:59 by Pro Gregory. Impression: Unspecified cirrhosis of liver - hepatitis, Respiratory failure, unspecified. - Released to Home. Signatures: Dispatcher [employer] EDMS Pro Gregory MD MD cha Williams, Irene, RN RN Marva Hawkins RN RN aa5 Corrections: (The following items were deleted from the chart) 15:08 13:12 09/05/2018 13:12 Patient pronounced on 09/05/2018 at 12:59 by Pro Gregory. Impression: Unspecified cirrhosis of liver - hepatitis; Respiratory failure, unspecified. Released to Home. cosmo
--- NOTE | 2018-09-05 13:12 | ER ---
Nurse's Notes [facility] Name: Nico Moulton Age: 63 yrs Sex: Male : 1955 Arrival Date: 09/05/2018 Time: 12:49 Bed 4 Private MD: Diagnosis: Unspecified cirrhosis of liver-hepatitis;Respiratory failure, unspecified Presentation: 09/05 12:45 Presenting complaint: EMS states: called out for AMS, hx of liver failure, pt was able iw to move himself onto stretcher, was able to take PO oral glucose for FSBS of 46, EMS administered 1/2 amp dextrose IVP, pt arrived to ER unresponsive woth agonal respirations, FSBS=82 upon arrival to ER, Dr. Gregory at bedside, Rt called to bedside, pt moved to bed 4. Transition of care: patient was not received from another setting of care. Onset of symptoms was September 05, 2018. 12:45 Method Of Arrival: EMS: [facility] iw 12:45 Acuity: RONNY 1 iw 13:09 Risk Assessment: Do you want to hurt yourself or someone else? Unable to obtain. iw Initial Sepsis Screen: Does the patient meet any 2 criteria? No. Patient's initial sepsis screen is negative. Does the patient have a suspected source of infection? No. Patient's initial sepsis screen is negative. Care prior to arrival: IV initiated. 22 GA, in the left antecubital area, Glucose check: 46. Historical: - Allergies: 13:10 No Known Allergies; iw - PMHx: 13:03 Cirrhosis; esophageal varices; Hepatitis; liver failure; iw - PSHx: 13:03 thoracentisis; iw - Immunization history:: Adult Immunizations unknown. - Social history:: Smoking status: unknown. - Family history:: not pertinent. - Ebola Screening: : Unable to complete screening because. Assessment: 12:45 Reassessment: Assisted ventilations via BVM by de . aa5 12:45 General: Behavior is unresponsive. Pain: Unable to use pain scale. Patient is aa5 unresponsive. Neuro: Level of Consciousness is unresponsive. Cardiovascular: central pulses are regular, weak and thready. Respiratory: Respiratory effort is weak, Respiratory pattern is agonal. Derm: Skin is jaundiced, Bruising that is dark purple, on left lateral anterior chest. 12:45 Reassessment: Dr. Gregory at bedside, states to set up for intubation. . aa5 12:47 Reassessment: Dr. Gregory administered 1 mg epi IVP, 1 amp bicarb, 1 GM calcium iw chloride to right EJ. 12:47 Reassessment: Hilary from [facility] states pt is on her way, and pt is possibly a iw DNR. 12:48 Cardiovascular: central pulses are weak and thready. aa5 12:49 Reassessment: pt with no palpable pulse, Dr. Gregory at bedside, at bedside, does iw not want CPR done, does not want pt intubated. 12:49 Reassessment:. Neuro: Level of Consciousness is unresponsive. Respiratory: Respiratory aa5 effort is none. 12:49 Reassessment: O2 via non-rebreather mask per MD. aa5 12:59 Reassessment: Pronounced by Dr. Gregory at 1259. aa5 Vital Signs: 12:45 BP 136 / 81; Pulse 80; Resp 8 S; aa5 12:48 aa5 12:59 Pulse 0; aa5 12:45 Unable to obtain O2 sat. aa5 12:48 Unable to obtain VS aa5 ED Course: 12:45 Patient arrived in ED. aa5 12:45 Inserted saline lock: 18 gauge in right EJ, using aseptic technique. IV inserted by Dr. spencer Gregory. 12:45 Maintain EMS IV. Dressing intact. Good blood return noted. Site clean \T\ dry. Gauge \T\ iw site: 22LAC. 12:50 Arm band placed on. aa5 12:50 Patient has correct armband on for positive identification. Placed in gown. Side rails aa5 up X2. 13:00 Triage completed. iw 13:01 Pro Gregory MD is Attending Physician. cosmo 13:[address] Reeves of pts passing. bd 13:10 Pro Gregory MD is Pronouncing Provider. cosmo 13:13 Marva Mares, RN is Primary Nurse. aa5 Administered Medications: 12:47 Drug: EPINEPHrine 0.1mg/mL 1:10,000 1 mg Route: IVP; Site: right jugular; iw 12:49 Follow up: Response: No change in condition aa5 12:47 Drug: Sodium Bicarbonate 1 amp Route: IVP; Site: right jugular; iw 12:49 Follow up: Response: No adverse reaction aa5 12:48 Drug: Calcium Chloride 1 grams Route: IVP; Site: right jugular; 12:49 Follow up: Response: No adverse reaction; No change in condition aa5 Point of Care Testing: Blood Glucose: 12:46 Blood Glucose: 82 mg/dL; aa5 Ranges: Outcome: 15:00 Patient left the ED. aa5 15:00 Patient : Time of 12:59 Pronounced by Pro Gregory MD aa5 15:00 Condition: Body released to [facility] per pt's request. Signatures: Afia Yoo Corey, MD MD cha Rivera, Jyoti mr Meaghan Caputo RN CELE Marva Mares RN RN [facility] Wilber Hernandez MD MD Corrections: (The following items were deleted from the chart) 13:16 12:49 Patient arrived in ED. mr aa5 13:16 12:53 Wilber Hernandez MD is Attending Physician. aa5 13:20 12:50 Arm band placed on aa5 13:20 12:45 Inserted saline lock: 18 gauge in right EJ, using aseptic technique. aa5 13:27 12:59 Reassessment: Pronounced by Dr. Gregory at 1259. aa5 aa5 13:31 12:45 Cardiovascular: central pulses are weak and thready aa5 aa5 16:39 15:08 Patient left the ED. aa5
[2018-09-05 15:42] VITALS: BP 136/81
== END 2018-09-05 15:08 | disposition expired ==
LOC: ER 12:44
DX: J96.90 Respiratory failure, unspecified, unspecified whether with hypoxia or hypercapnia (principal); K74.60 Unspecified cirrhosis of liver; B19.9 Unspecified viral hepatitis without hepatic coma
CPT/HCPCS: 36415; 82962; 96374; 96375; 99284; J0171; J7030